=== PATIENT | male | born 1940 | race American Indian/Alaskan Native ===

== ENCOUNTER 2016-12-20 23:13 | Inpatient (IN) | payer MEDICARE ==
[2016-12-21] MEDS ORDERED: ATIVAN ONE (00:37)
--- NOTE | 2016-12-21 00:52 | Emergency Department Report ---
<KACY JARAMILLO T - Last Filed: 12/21/16 00:45> ED Seizure HPI - General Chief Complaint: Seizure Stated Complaint: SEIZURE Time Seen by Provider: 12/21/16 00:45 Source: patient, family (daughter), EMS Mode of arrival: Stretcher Limitations: Physical Limitation - History of Present Illness Initial Comments: daughter states that the patient was in his usual state of health when she noticed he was staring off into space and became unresponsive. He remained alert but would not verbalize. He then told his daughter that he had a headache. She went to get him an aspirin which he then refused, and then appeared to have a seizure. EMS was activated. Patient is noted to have a seizure while here. Complaint: seizure Onset/Timin -: hour(s) Time: 00:52 Description of Episode: tonic-clonic movement Duration of Episode: 10 -: minutes(s) Witnessed:: Yes Trauma: No Seizure History: none Place: home Possible Precipitating Event: none Associated Symptoms: denies other symptoms Treatments Prior to Arrival: none - Related Data Previous Rx's Medication Instructions Recorded Last Taken Type Acetaminophen [Acetaminophen TAB] 650 mg PO Q6H PRN #30 tablet 08/22/14 Unknown Rx Fludrocortisone [Florinef] 0.05 mg PO QDAY #30 tablet 08/22/14 Unknown Rx Allergies Allergy/AdvReac Type Severity Reaction Status Date / Time No Known Allergies Allergy Verified 06/26/14 23:54 ED Review of Systems ROS: Stated complaint: SEIZURE Other details as noted in HPI Comment: Unobtainable due to pts medical conditions ED Past Medical Hx - Past Medical History Previous Medical History?: Yes Hx Congestive Heart Failure: No Hx Diabetes: No Hx Deep Vein Thrombosis: No Hx Asthma: No Hx COPD: No Hx Dementia: Yes Hx HIV: No Additional medical history: Dementia. Failure to thrive - Surgical History Past Surgical History?: Yes Hx Pacemaker: No Hx Internal Defibrillator: No Additional Surgical History: Tonsillectomy, prostate seed implants - Social History Smoking Status: Unknown if ever smoked Substance Use Type: None - Medications Home Medications: Home Medications Medication Instructions Recorded Confirmed Last Taken Type Acetaminophen [Acetaminophen TAB] 650 mg PO Q6H PRN #30 tablet 08/22/14 Unknown Rx Fludrocortisone [Florinef] 0.05 mg PO QDAY #30 tablet 08/22/14 Unknown Rx ED Physical Exam - General Limitations: Altered Mental Status, Physical Limitation General appearance: cachectic, other (actively having a seizure) - Head Head exam: Present: atraumatic, normocephalic - Eye Eye exam: Present: PERRL - ENT ENT exam: Present: normal exam - Neck Neck exam: Present: normal inspection - Respiratory Respiratory exam: Present: normal lung sounds bilaterally - Cardiovascular Cardiovascular Exam: Present: regular rate, normal rhythm - GI/Abdominal GI/Abdominal exam: Present: soft, distended - Rectal Rectal exam: Present: deferred - Extremities Exam Extremities exam: Present: other (no edema, some healing wounds on the lower legs, chronic appearling) - Back Exam Back exam: Present: normal inspection - Neurological Exam Neurological exam: Present: altered. Absent: alert, oriented X3 - Psychiatric Psychiatric exam: Present: other (cannot assess due to actively having a seizure ) - Skin Skin exam: Present: warm, dry, intact ED Course Vital Signs 12/20/16 12/20/16 12/20/16 23:23 23:30 23:37 Temperature 97.9 F Pulse Rate 111 H 111 H 110 H Respiratory 13 22 18 Rate Blood Pressure 163/90 163/90 O2 Sat by Pulse 100 97 Oximetry 12/20/16 12/21/16 12/21/16 23:46 00:00 00:16 Temperature Pulse Rate 106 H 112 H 110 H Respiratory 22 26 H 27 H Rate Blood Pressure 163/90 172/99 172/99 O2 Sat by Pulse 99 100 99 Oximetry 12/21/16 12/21/16 12/21/16 00:30 00:46 01:00 Temperature Pulse Rate 138 H 113 H 111 H Respiratory 45 H 19 18 Rate Blood Pressure 172/99 159/85 155/82 O2 Sat by Pulse 96 99 100 Oximetry 12/21/16 12/21/16 12/21/16 01:16 01:39 01:46 Temperature Pulse Rate 118 H 118 H Respiratory 22 27 H Rate Blood Pressure 166/88 150/98 150/98 O2 Sat by Pulse 91 95 Oximetry 12/21/16 12/21/16 12/21/16 02:00 02:15 02:30 Temperature Pulse Rate 116 H 119 H 116 H Respiratory 21 24 28 H Rate Blood Pressure 164/77 155/86 O2 Sat by Pulse 95 95 95 Oximetry 12/21/16 12/21/16 02:45 03:00 Temperature Pulse Rate 114 H 109 H Respiratory 26 H 21 Rate Blood Pressure 155/86 153/94 O2 Sat by Pulse 95 98 Oximetry Critical care attestation.: If time is entered above; I have spent that time in minutes in the direct care of this critically ill patient, excluding procedure time. ED Disposition Clinical Impression: Seizure, Sepsis UTI (urinary tract infection) Qualifiers: Urinary tract infection type: acute cystitis Hematuria presence: with hematuria Qualified Code(s): N30.01 - Acute cystitis with hematuria Disposition: -09 OP ADMIT IP TO THIS HOSP Condition: Stable Referrals: PRIMARY CARE,MD [Primary Care Provider] - 3-5 Days <MEKHI BERGER - Last Filed: 12/21/16 04:59> ED Medical Decision Making - Lab Data Result diagrams: 12/21/16 01:05 12/21/16 01:05 ED Disposition Is pt being admited?: Yes Does the pt Need Aspirin: No Time of Disposition: 04:47 (case reviewed with dr vigil and he will admit the pt )
[2016-12-21 01:26] LABS: Basophils % (Auto) 0.2 % (0.0-1.8); Hematocrit 42.3 % (35.5-45.6); Hemoglobin 13.8 gm/dl (11.8-15.2); Mean Corpuscular HGB Conc 33 % (32-34); Mean Corpuscular Hemoglobin 31 pg (28-32); Mean Corpuscular Volume 94 fl (84-94); Platelet Count 296 K/mm3 (140-440); Red Blood Count 4.51 M/mm3 (3.65-5.03); Red Cell Distribution Width 13.9 % (13.2-15.2); White Blood Count 8.8 K/mm3 (4.5-11.0)
[2016-12-21 01:49] LABS: Alanine Aminotransferase 10 units/L (7-56); Albumin 3.8 g/dL (3.9-5); Albumin/Globulin Ratio 1.2 %; Alkaline Phosphatase 111 units/L (35-129); Anion Gap 20 mmol/L; BUN/Creatinine Ratio 11; Blood Urea Nitrogen 9 mg/dL (9-20); Calcium 8.5 mg/dL (8.4-10.2); Carbon Dioxide 25 mmol/L (22-30); Chloride 99.2 mmol/L (98-107); Glucose 150 mg/dL (75-100); Potassium 4.8 mmol/L (3.6-5.0); Sodium 139 mmol/L (137-145); Total Protein 7.1 g/dL (6.3-8.2)
--- NOTE | 2016-12-21 02:10 | Cat Scan Report ---
FINAL REPORT EXAM: CT HEAD/BRAIN W/O CONTRAST. HISTORY: Seizure. TECHNIQUE: Unenhanced axial CT images of the brain were obtained. No prior studies are available for comparison. FINDINGS: There moderate diffuse generalized volume loss, appropriate for patient's age. Mild patchy areas of low-attenuation are seen in the periventricular and subcortical white matter, nonspecific but most commonly due to chronic small vessel ischemic disease. There is a 2-3 mm probable prior lacunar infarction in the right thalamus. Incidental note is made of bilateral basal ganglia calcifications. The riley-white differentiation is maintained. There is no extra-axial fluid collection, mass, mass effect, midline shift, hydrocephalus, or acute intracranial hemorrhage. The visualized paranasal sinuses and mastoid air cells are clear. There is no skull fracture or other osseous abnormality. The visualized orbits and globes are grossly unremarkable. IMPRESSION: 1. No acute intracranial abnormality. 2. Generalized volume loss and probable chronic small vessel ischemic disease.
[2016-12-21 03:04] LABS: Urine Drugs of Abuse Note Disclamer
[2016-12-21] MEDS ORDERED: ATIVAN IV ONE (03:10)
[2016-12-21 03:14] LABS: Bacteria,Urine 4+ /HPF (Negative); Bilirubin,Urine NEG (Negative); Blood,Urine MOD (Negative); Ketones,Urine TR mg/dL (Negative); Leukocyte Esterase,Urine NEG (Negative); Mucus,Urine FEW /HPF; Nitrite,Urine POS (Negative)
[2016-12-21] MEDS ORDERED: LEVAQUIN 750MG/150ML 750 MG/150 ML BAG IV ONE (04:49)
[2016-12-21] MEDS ORDERED: NACL 0.9% 500 ML 500 ML IV ONE (04:51)
--- NOTE | 2016-12-21 06:03 | History and Physical Report ---
History of Present Illness Date of examination: 12/21/16 Date of admission: 12/21/2016 Chief complaint: chief complaint: Seizures 2 History of present illness: History of Present Illness 76-year-old -[place] male with no significant past medical history except dementia and failure to thrive brought in by family for 2 new onset seizures. The first one-patient had a blank stare into space and became unresponsive for a few sec. There were no tonic-clonic movements. The second episode happened while around 12 midnight. Patient tonic-clonic movements followed by altered sensorium for 30 minutes. Never had seizures before. Patient has been having progressi and also his weight. Very poor by mouth intake. Patient is cachectic. Patient also had a right sacral ulcer which has healed to a large extent. No fever no chills. No shortness of breath. No recent travel. Past Medical History Previous Medical History?: Yes Hx Dementia: Yes Additional medical history: Dementia. Failure to thrive Sacral decub ulcer [place]'s disease. Patient is on fludrocortisone. - Surgical History Past Surgical History?: Yes Additional Surgical History: Tonsillectomy, prostate seed implants - Social History Smoking Status: Unknown if ever smoked Substance Use Type: None - Medications Home Medications: Home Medications Medication Instructions Recorded Confirmed Last Taken Type Acetaminophen [Acetaminophen TAB] 650 mg PO Q6H PRN #30 tablet 08/22/14 Unknown Rx Fludrocortisone [Florinef] 0.05 mg PO QDAY #30 tablet 08/22/14 Unknown Rx Review of Systems Stated complaint: SEIZURE Other details as noted in HPI Comment: Unobtainable due to pts medical conditions Medications and Allergies Allergies Allergy/AdvReac Type Severity Reaction Status Date / Time No Known Allergies Allergy Verified 06/26/14 23:54 Home Medications Medication Instructions Recorded Confirmed Last Taken Type Acetaminophen [Acetaminophen TAB] 650 mg PO Q6H PRN #30 tablet 08/22/14 Unknown Rx Fludrocortisone [Florinef] 0.05 mg PO QDAY #30 tablet 08/22/14 Unknown Rx Active Meds: Active Medications Levetiracetam 1,000 mg/ Sodium (Chloride) 110 mls @ 400 mls/hr IV Q12H SUREKHA Levofloxacin/Dextrose (Levaquin 750mg/150ml) 750 mg in 150 mls @ 100 mls/hr IV ONCE ONE PRN Reason: Protocol Stop: 12/21/16 06:18 Last Admin: 12/21/16 05:08 Dose: 100 mls/hr Exam - Physical Exam Narrative exam: Patient lying comfortably - Constitutional Vitals: Temp Pulse Resp BP Pulse Ox 97.9 F 101 H 20 145/69 98 12/20/16 23:37 12/21/16 05:45 12/21/16 05:45 12/21/16 05:45 12/21/16 05:45 General appearance: Present: no acute distress, well-nourished - EENT Eyes: Present: PERRL ENT: hearing intact, clear oral mucosa - Neck Neck: Present: supple, normal ROM - Respiratory Respiratory effort: normal Respiratory: bilateral: CTA - Cardiovascular Heart rate: 117 Rhythm: regular Heart Sounds: Present: S1 & S2. Absent: rub, click - Extremities Extremities: no ischemia, pulses intact, pulses symmetrical, No edema Peripheral Pulses: within normal limits - Abdominal General gastrointestinal: Present: soft, non-tender, non-distended, normal bowel sounds Male genitourinary: Present: normal - Rectal Rectal Exam: deferred - Integumentary Integumentary: Present: clear, warm, dry - Musculoskeletal Musculoskeletal: strength equal bilaterally, generalized weakness - Psychiatric Psychiatric: appropriate mood/affect, intact judgment & insight, memory intact ( dementia severe), depressed - Neurologic Neurologic: CNII-XII intact, moves all extremities, gait normal - Allied Health Allied health notes reviewed: nursing, case management Results - Labs CBC & Chem 7: 12/21/16 01:05 12/21/16 01:05 Labs: Laboratory Last Values WBC 8.8 K/mm3 (4.5-11.0) 12/21/16 01:05 RBC 4.51 M/mm3 (3.65-5.03) 12/21/16 01:05 Hgb 13.8 gm/dl (11.8-15.2) 12/21/16 01:05 Hct 42.3 % (35.5-45.6) 12/21/16 01:05 MCV 94 fl (84-94) 12/21/16 01:05 MCH 31 pg (28-32) 12/21/16 01:05 MCHC 33 % (32-34) 12/21/16 01:05 RDW 13.9 % (13.2-15.2) 12/21/16 01:05 Plt Count 296 K/mm3 (140-440) 12/21/16 01:05 Lymph % (Auto) 11.6 % (13.4-35.0) L 12/21/16 01:05 [place] % (Auto) 2.6 % (0.0-7.3) 12/21/16 01:05 Eos % (Auto) 0.0 % (0.0-4.3) 12/21/16 01:05 Baso % (Auto) 0.2 % (0.0-1.8) 12/21/16 01:05 Lymph # 1.0 K/mm3 (1.2-5.4) L 12/21/16 01:05 [place] # 0.2 K/mm3 (0.0-0.8) 12/21/16 01:05 Eos # 0.0 K/mm3 (0.0-0.4) 12/21/16 01:05 Baso # 0.0 K/mm3 (0.0-0.1) 12/21/16 01:05 Seg Neutrophils % 85.6 % (40.0-70.0) H 12/21/16 01:05 Seg Neutrophils # 7.5 K/mm3 (1.8-7.7) 12/21/16 01:05 Sodium 139 mmol/L (137-145) 12/21/16 01:05 Potassium 4.8 mmol/L (3.6-5.0) 12/21/16 01:05 Chloride 99.2 mmol/L (98-107) 12/21/16 01:05 Carbon Dioxide 25 mmol/L (22-30) 12/21/16 01:05 Anion Gap 20 mmol/L 12/21/16 01:05 BUN 9 mg/dL (9-20) 12/21/16 01:05 Creatinine 0.8 mg/dL (0.8-1.5) 12/21/16 01:05 Estimated GFR > 60 ml/min 12/21/16 01:05 BUN/Creatinine Ratio 11 % 12/21/16 01:05 Glucose 150 mg/dL (75-100) H 12/21/16 01:05 Calcium 8.5 mg/dL (8.4-10.2) 12/21/16 01:05 Total Bilirubin 0.20 mg/dL (0.1-1.2) 12/21/16 01:05 AST 19 units/L (5-40) 12/21/16 01:05 ALT 10 units/L (7-56) 12/21/16 01:05 Alkaline Phosphatase 111 units/L (35-129) 12/21/16 01:05 Total Protein 7.1 g/dL (6.3-8.2) 12/21/16 01:05 Albumin 3.8 g/dL (3.9-5) L 12/21/16 01:05 Albumin/Globulin Ratio 1.2 % 12/21/16 01:05 Urine Color Yellow (Yellow) 12/21/16 02:57 Urine Turbidity Clear (Clear) 12/21/16 02:57 Urine pH 5.0 (5.0-7.0) 12/21/16 02:57 Ur Specific [place] 1.019 (1.003-1.030) 12/21/16 02:57 Urine Protein 30 mg/dl mg/dL (Negative) 12/21/16 02:57 Urine Glucose (UA) Neg mg/dL (Negative) 12/21/16 02:57 Urine Ketones Tr mg/dL (Negative) 12/21/16 02:57 Urine Blood Mod (Negative) 12/21/16 02:57 Urine Nitrite Pos (Negative) 12/21/16 02:57 Urine Bilirubin Neg (Negative) 12/21/16 02:57 Urine Urobilinogen 4.0 mg/dL (<2.0) 12/21/16 02:57 Ur Leukocyte Esterase Neg (Negative) 12/21/16 02:57 Urine WBC (Auto) 127.0 /HPF (0.0-6.0) H 12/21/16 02:57 Urine RBC (Auto) 31.0 /HPF (0.0-6.0) 12/21/16 02:57 U Epithel Cells (Auto) < 1.0 /HPF (0-13.0) 12/21/16 02:57 Urine Bacteria (Auto) 4+ /HPF (Negative) 12/21/16 02:57 Urine Mucus Few /HPF 12/21/16 02:57 Urine Opiates Screen Presumptive negative 12/21/16 02:57 Urine Methadone Screen Presumptive negative 12/21/16 02:57 Ur Barbiturates Screen Presumptive negative 12/21/16 02:57 Ur Phencyclidine Scrn Presumptive negative 12/21/16 02:57 Ur Amphetamines Screen Presumptive negative 12/21/16 02:57 U Benzodiazepines Scrn Presumptive negative 12/21/16 02:57 Urine Cocaine Screen Presumptive negative 12/21/16 02:57 U Marijuana (THC) Screen Presumptive negative 12/21/16 02:57 Drugs of Abuse Note Disclamer 12/21/16 02:57 Plasma/Serum Alcohol < 0.01 gm% (0-0.07) 12/21/16 01:05 Short CBC 12/21/16 Range/Units 01:05 WBC 8.8 (4.5-11.0) K/mm3 Hgb 13.8 (11.8-15.2) gm/dl Hct 42.3 (35.5-45.6) % Plt Count 296 (140-440) K/mm3 BMP 12/21/16 01:05 Sodium 139 Potassium 4.8 Chloride 99.2 Carbon Dioxide 25 BUN 9 Creatinine 0.8 Glucose 150 H Calcium 8.5 Liver Function 12/21/16 Range/Units 01:05 Total Bilirubin 0.20 (0.1-1.2) mg/dL AST 19 (5-40) units/L ALT 10 (7-56) units/L Alkaline Phosphatase 111 (35-129) units/L Albumin 3.8 L (3.9-5) g/dL Urine 12/21/16 Range/Units 02:57 Urine Color Yellow (Yellow) Urine pH 5.0 (5.0-7.0) Ur Specific [place] 1.019 (1.003-1.030) Urine Protein 30 mg/dl (Negative) mg/dL Urine Glucose (UA) Neg (Negative) mg/dL - Imaging and Cardiology EKG: report reviewed (heart rate 117. Left atrial enlargement. Minimal ST depression. EKG reviewed by me.) CT Scan - head: report reviewed (no acute findings) Assessment and Plan Advance Directives: Yes (full code) VTE prophylaxis?: Chemical Plan of care discussed with patient/family: Yes - Patient Problems (1) Seizure disorder Current Visit: Yes Status: Acute Plan to address problem: New onset seizures.No brain tumor.Tonic-clonic seizures witnessed in the emergency room. Patient initiated on IV Keppra with bridge to by mouth Keppra (2) Severe malnutrition Current Visit: Yes Status: Acute Plan to address problem: dietary consult requested (3) Addisons disease Current Visit: Yes Status: Chronic Plan to address problem: Because the patient is taking fludrocortisone I'm assuming that patient has [place]'s disease.continue fludrocortisone. Check cortisol level in a.m. (4) Sacral decubitus ulcer, stage II Current Visit: Yes Status: Chronic Plan to address problem: wound care consult requested (5) Debility Current Visit: Yes Status: Chronic Plan to address problem: physical therapy requested (6) DVT prophylaxis Current Visit: Yes Status: Acute Plan to address problem: Lovenox 40 mg subcutaneous daily
[2016-12-21] MEDS ORDERED: ZOFRAN IV PRN (06:04)
[2016-12-21] MEDS ORDERED: DULCOLAX PR PRN (06:04)
[2016-12-21] MEDS ORDERED: MILK OF MAGNESIA PO PRN (06:04)
[2016-12-21] MEDS ORDERED: DILAUDID IV PRN (06:06)
[2016-12-21] MEDS: KEPPRA 1,000 MG in NACL 0.9% 100 ML IV SCH ×2 (06:06→17:28)
[2016-12-21] MEDS ORDERED: D5NS 1,000 ML IV SCH (07:00)
[2016-12-21] MEDS ORDERED: LOVENOX SUB-Q SCH (10:00)
--- NOTE | 2016-12-21 12:03 | Consultation ---
History of Present Illness Consult date: 12/21/16 Chief complaint: patient seen for new onaset of seizures I studiied his CT of the head and it shows generalized atrophy and small vesseel disease no acute stroke or tumor the metabolic profile does not indicate there is metabolic reason for stroke either agree with regian but post 24 hours we should lower amount to 75o mg daily based on age/ sizewe of the patient there is co-morbid factor of dementia Medications and Allergies Allergies Allergy/AdvReac Type Severity Reaction Status Date / Time No Known Allergies Allergy Verified 06/26/14 23:54 Home Medications Medication Instructions Recorded Confirmed Last Taken Type Acetaminophen [Acetaminophen TAB] 650 mg PO Q6H PRN #30 tablet 08/22/14 Unknown Rx Active Meds: Active Medications Acetaminophen (Tylenol) 650 mg PO Q4H PRN PRN Reason: Pain MILD(1-3)/Fever >100.5/VERGARA Aspirin (Aspirin) 300 mg VT QDAY SUREKHA Bisacodyl (Dulcolax) 10 mg VT QDAY PRN PRN Reason: Constipation unrelieved by MOM Enoxaparin Sodium (Lovenox) 40 mg SUB-Q QDAY@1000 SUREKHA Famotidine (Pepcid) 20 mg PO BID SUREKHA Fludrocortisone Acetate (Florinef) 0.05 mg PO QDAY SUREKHA Hydromorphone HCl (Dilaudid) 0.5 mg IV Q3H PRN PRN Reason: Pain , Severe (7-10) Levetiracetam 1,000 mg/ Sodium (Chloride) 110 mls @ 400 mls/hr IV Q12H [facility] Last Admin: 12/21/16 06:06 Dose: 400 mls/hr Dextrose/Sodium Chloride (D5ns) 1,000 mls @ 100 mls/hr IV DIRECT SUREKHA Stop: 12/22/16 11:00 Magnesium Hydroxide (Milk Of Magnesia) 30 ml PO Q4H PRN PRN Reason: Constipation Ondansetron HCl (Zofran) 4 mg IV Q8H PRN PRN Reason: N/V unrelieved by Reglan Oxycodone/Acetaminophen (Percocet 5/325) 1 tab PO Q6H PRN PRN Reason: Pain, Moderate (4-6) Physical Examination - Vital Signs Vital Signs: Vital Signs Pulse Resp 111 H 13 12/20/16 23:23 12/20/16 23:23 Results - Laboratory Findings CBC and BMP: 12/21/16 01:05 12/21/16 01:05
[2016-12-21] MEDS: FLORINEF PO SCH (14:33)
[2016-12-21] MEDS: LOVENOX SUB-Q SCH (14:34)
[2016-12-21] MEDS: PEPCID PO SCH ×2 (14:35→22:35)
[2016-12-22] MEDS: KEPPRA 1,000 MG in NACL 0.9% 100 ML IV SCH ×2 (05:45→19:34)
--- NOTE | 2016-12-22 07:10 | Consultation ---
HISTORY OF PRESENT ILLNESS: This is a 76-year-old white male who is admitted to [facility] after he began to become unresponsive and complained of a headache and then developed a generalized seizure. He was presented to the hospital with a history of dementia and failure to thrive. He has had a prior medical history of dementia, surgical history of prostatic cancer and tonsillectomy. His medicines on admission are Florinef 0.5 mg daily, acetaminophen 650 mg 1 every 6 hours p.r.n. pain. He has no known allergies. Social history not obtainable from the patient, but there is no history of alcohol abuse. On admission, the patient did not demonstrate any further seizure activity. His blood sugar was stated to be 296 and the patient had a CT scan of the head done in the ED and this revealed evidence of generalized atrophy and small blood vessel ischemic changes. Laboratory reveals his white count to be 8800. Hematocrit is 42.3, glucose 150. Urinalysis is unremarkable except for slightly elevated white cells of 127. Drug screen was negative. The patient's creatinine was 0.8. On my examination, the patient's vital signs his blood pressure is 136/78, respirations are 18, pulse rate is 105, mean blood pressure is 97, the paO2 on room air was 100%. The patient's motor tone is symmetrical. His neck is supple. His ocular movements are full. He does not speak at all to me and he is very withdrawn, but does have symmetrical tone. No active seizure activity is noted to be present and he is quite relaxed and does not demonstrate any agitation, delirium. There is no aggressive behavior, he is not in restraints at present time, there is no evidence of any injury. RECOMMENDATIONS: I would start this patient on anticonvulsant therapy and I have noticed that he is taking levetiracetam 1000 mg b.i.d., which can be reduced to 500 at bedtime based on his age after loading him adequately for 24 hours. I would recommend getting an EEG. I feel that MRI scan is probably not going to be necessary at this point. I would advise reviewing his history of whether he is on Alzheimer's medication and if not it may be considered, although this may be a light message of this process of this disorder. 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 JOB# [id number] RADHA/RADHA
[2016-12-22 08:01] LABS: Basophils % (Auto) 0.5 % (0.0-1.8); Hematocrit 43.1 % (35.5-45.6); Hemoglobin 14.7 gm/dl (11.8-15.2); Mean Corpuscular HGB Conc 34 % (32-34); Mean Corpuscular Hemoglobin 32 pg (28-32); Mean Corpuscular Volume 92 fl (84-94); Platelet Count 250 K/mm3 (140-440); Red Blood Count 4.67 M/mm3 (3.65-5.03); Red Cell Distribution Width 13.3 % (13.2-15.2); White Blood Count 6.9 K/mm3 (4.5-11.0)
[2016-12-22 08:23] LABS: Alanine Aminotransferase 11 units/L (7-56); Albumin 3.1 g/dL (3.9-5); Albumin/Globulin Ratio 0.8 %; Alkaline Phosphatase 106 units/L (35-129); Anion Gap 16 mmol/L; BUN/Creatinine Ratio 8; Blood Urea Nitrogen 6 mg/dL (9-20); Calcium 8.5 mg/dL (8.4-10.2); Carbon Dioxide 27 mmol/L (22-30); Chloride 94.7 mmol/L (98-107); Glucose 94 mg/dL (75-100); Potassium 4.7 mmol/L (3.6-5.0); Sodium 133 mmol/L (137-145); Total Protein 7.1 g/dL (6.3-8.2)
[2016-12-22] MEDS: FLORINEF PO SCH (11:34)
[2016-12-22] MEDS: PERCOCET 5/325 PO PRN ×2 (11:34→18:36)
[2016-12-22] MEDS: PEPCID PO SCH ×2 (11:34→22:29)
[2016-12-22] MEDS: LOVENOX SUB-Q SCH (11:35)
[2016-12-22] MEDS: ASPIRIN PR SCH (11:35)
[2016-12-22] MEDS: TYLENOL PO PRN (13:36)
--- NOTE | 2016-12-22 15:36 | Progress Note ---
Assessment and Plan - Patient Problems (1) Encephalopathy acute Current Visit: Yes Status: Acute Plan to address problem: Etio unclear. MR brain ordered Multifactorial seizures UTI and Malnutrition and Vascular dementia. Discussed with daughter about SNF placement (2) UTI (urinary tract infection) Current Visit: Yes Status: Acute Qualifiers: Urinary tract infection type: acute cystitis Hematuria presence: with hematuria Indwelling urinary catheter type: I Encounter type: E Qualified Code(s): N30.01 - Acute cystitis with hematuria Plan to address problem: Patient initiated on Rocephin (3) Seizure disorder Current Visit: Yes Status: Acute Plan to address problem: New onset seizures.No brain tumor.Tonic-clonic seizures witnessed in the emergency room. Patient initiated on IV Keppra with bridge to by mouth Keppra (4) Severe malnutrition Current Visit: Yes Status: Acute Plan to address problem: dietary consult requested (5) Addisons disease Current Visit: Yes Status: Chronic Plan to address problem: Because the patient is taking fludrocortisone I'm assuming that patient has Rahat's disease.continue fludrocortisone. Cortisol level pending (6) Sacral decubitus ulcer, stage II Current Visit: Yes Status: Chronic Plan to address problem: wound care consult requested (7) Debility Current Visit: Yes Status: Chronic Plan to address problem: physical therapy requested (8) DVT prophylaxis Current Visit: Yes Status: Acute Plan to address problem: Lovenox 40 mg subcutaneous daily Subjective Date of service: 12/22/16 Principal diagnosis: New onset seizures Interval history: Patient lethargic Objective - Exam Narrative Exam: Patient lying comfortably - Constitutional Vitals: Vital Signs - 12hr 12/22/16 12/22/16 12/22/16 05:46 07:24 13:29 Temperature 100.0 F H 99.4 F 100.1 F H Pulse Rate 113 H 105 H Respiratory 20 18 20 Rate Blood Pressure 137/86 128/81 133/67 O2 Sat by Pulse 96 98 Oximetry 12/22/16 13:58 Temperature Pulse Rate 69 Respiratory Rate Blood Pressure O2 Sat by Pulse 97 Oximetry General appearance: Present: no acute distress, well-nourished - EENT Eyes: PERRL, EOM intact ENT: hearing intact, clear oral mucosa Ears: bilateral: normal - Neck Neck: supple, normal ROM - Respiratory Respiratory effort: normal Respiratory: bilateral: CTA - Breasts Breasts: normal - Cardiovascular Heart rate: 80 Rhythm: regular Heart Sounds: Present: S1 & S2. Absent: gallop, rub Extremities: pulses intact, No edema, normal color, Full ROM - Gastrointestinal General gastrointestinal: Present: soft, non-tender, non-distended, normal bowel sounds - Genitourinary Male genitourinary: normal - Integumentary Integumentary: clear, warm, dry - Musculoskeletal Musculoskeletal: 1, strength equal bilaterally - Neurologic Neurologic: moves all extremities - Psychiatric Psychiatric: depressed, other (Lethargic poorly responsive.) - Labs CBC & Chem 7: 12/22/16 07:37 12/22/16 07:37 Labs: Abnormal lab results 12/22/16 12/22/16 Range/Units 07:37 07:37 [place] % (Auto) 7.8 H (0.0-7.3) % Sodium 133 L (137-145) mmol/L Chloride 94.7 L (98-107) mmol/L BUN 6 L (9-20) mg/dL Albumin 3.1 L (3.9-5) g/dL
[2016-12-22] MEDS: PROVENTIL IH SCH ×2 (17:00→21:22)
[2016-12-22] MEDS: ROCEPHIN/NS 1 GM/50 ML 1 GM/50 ML BAG IV SCH (18:39)
[2016-12-23] MEDS: PROVENTIL IH SCH (03:04)
[2016-12-23] MEDS ORDERED: PROVENTIL IH PRN ×2 (03:16→03:37)
--- NOTE | 2016-12-23 09:01 | XRay Report ---
Chest 2 views. History: Congestive, coarse lung sounds. Findings: The heart and pulmonary vessels are normal. The lungs are free of acute infiltrates. There is no pleural fluid. Impression: No acute findings.
[2016-12-23] MEDS: KEPPRA PO SCH ×2 (09:13→21:30)
[2016-12-23] MEDS: PEPCID PO SCH ×2 (09:13→21:30)
[2016-12-23] MEDS: FLORINEF PO SCH (09:14)
[2016-12-23] MEDS: ASPIRIN PR SCH (09:14)
[2016-12-23] MEDS: LOVENOX SUB-Q SCH (09:15)
[2016-12-23] MEDS: ROCEPHIN/NS 1 GM/50 ML 1 GM/50 ML BAG IV SCH (10:55)
[2016-12-23] MEDS ORDERED: APRESOLINE IV ONE (15:40)
[2016-12-23] MEDS: TYLENOL PO PRN (15:51)
--- NOTE | 2016-12-23 19:52 | Progress Note ---
Assessment and Plan - Patient Problems (1) Encephalopathy acute Current Visit: Yes Status: Acute Plan to address problem: Etio unclear. MR brain ordered Multifactorial seizures UTI and Malnutrition and Vascular dementia. Discussed with daughter about SNF placement (2) UTI (urinary tract infection) Current Visit: Yes Status: Acute Qualifiers: Urinary tract infection type: acute cystitis Hematuria presence: with hematuria Indwelling urinary catheter type: I Encounter type: E Qualified Code(s): N30.01 - Acute cystitis with hematuria Plan to address problem: Patient initiated on Rocephin (3) Seizure disorder Current Visit: Yes Status: Acute Plan to address problem: New onset seizures.No brain tumor.Tonic-clonic seizures witnessed in the emergency room. Patient initiated on IV Keppra with bridge to by mouth Keppra (4) Severe malnutrition Current Visit: Yes Status: Acute Plan to address problem: dietary consult requested (5) Addisons disease Current Visit: Yes Status: Chronic Plan to address problem: Because the patient is taking fludrocortisone I'm assuming that patient has [place]'s disease.continue fludrocortisone. Cortisol level pending (6) Sacral decubitus ulcer, stage II Current Visit: Yes Status: Chronic Plan to address problem: wound care consult requested (7) Debility Current Visit: Yes Status: Chronic Plan to address problem: physical therapy requested (8) DVT prophylaxis Current Visit: Yes Status: Acute Plan to address problem: Lovenox 40 mg subcutaneous daily Subjective Date of service: 12/23/16 Principal diagnosis: 12/1316 Interval history: Patient lethargic Objective - Exam Narrative Exam: Patient lying comfortably - Constitutional Vitals: Vital Signs - 12hr 12/23/16 12/23/16 12/23/16 08:01 10:00 15:30 Temperature 97.3 F L 100.7 F H Pulse Rate 103 H Pulse Rate [ 103 H From Monitor] Respiratory 18 20 16 Rate Respiratory 18 Rate [ Generalized] Blood Pressure 146/88 161/97 O2 Sat by Pulse 98 96 Oximetry 12/23/16 12/23/16 12/23/16 15:40 16:12 16:16 Temperature 99.5 F Pulse Rate 122 H 131 H 132 H Pulse Rate [ From Monitor] Respiratory 22 Rate Respiratory Rate [ Generalized] Blood Pressure 161/97 157/85 O2 Sat by Pulse 100 98 Oximetry 12/23/16 12/23/16 12/23/16 16:50 17:04 19:07 Temperature 99.5 F 99.4 F Pulse Rate 134 H 132 H Pulse Rate [ From Monitor] Respiratory 22 20 Rate Respiratory Rate [ Generalized] Blood Pressure 143/76 137/79 146/78 O2 Sat by Pulse 100 99 Oximetry General appearance: Present: no acute distress, well-nourished - EENT Eyes: PERRL, EOM intact ENT: hearing intact, clear oral mucosa Ears: bilateral: normal - Neck Neck: supple, normal ROM - Respiratory Respiratory effort: normal Respiratory: bilateral: CTA - Breasts Breasts: normal - Cardiovascular Rhythm: regular Heart Sounds: Present: S1 & S2. Absent: gallop, rub Extremities: pulses intact, No edema, normal color, Full ROM - Gastrointestinal General gastrointestinal: Present: soft, non-tender, non-distended, normal bowel sounds - Genitourinary Male genitourinary: normal - Integumentary Integumentary: clear, warm, dry - Musculoskeletal Musculoskeletal: 1, strength equal bilaterally - Neurologic Neurologic: moves all extremities - Psychiatric Psychiatric: memory intact, appropriate mood/affect, intact judgment & insight - Labs CBC & Chem 7: 12/22/16 07:37 12/22/16 07:37
[2016-12-24] MEDS ORDERED: NACL 0.9% 1000 ML 1,000 ML IV SCH (07:00)
[2016-12-24] MEDS ORDERED: KEPPRA PO SCH (07:00)
[2016-12-24 07:55] LABS: Anion Gap 21 mmol/L; BUN/Creatinine Ratio 19; Blood Urea Nitrogen 13 mg/dL (9-20); Calcium 8.2 mg/dL (8.4-10.2); Carbon Dioxide 25 mmol/L (22-30); Chloride 93.6 mmol/L (98-107); Glucose 100 mg/dL (75-100); Potassium 4.2 mmol/L (3.6-5.0); Sodium 135 mmol/L (137-145)
[2016-12-24 08:01] LABS: Basophils % (Auto) 0.2 % (0.0-1.8); Hematocrit 41.6 % (35.5-45.6); Hemoglobin 13.8 gm/dl (11.8-15.2); Mean Corpuscular HGB Conc 33 % (32-34); Mean Corpuscular Hemoglobin 30 pg (28-32); Mean Corpuscular Volume 92 fl (84-94); Platelet Count 277 K/mm3 (140-440); Red Blood Count 4.55 M/mm3 (3.65-5.03); Red Cell Distribution Width 13.3 % (13.2-15.2)
[2016-12-24] MEDS: ROCEPHIN/NS 1 GM/50 ML 1 GM/50 ML BAG IV SCH (09:35)
[2016-12-24] MEDS: LOVENOX SUB-Q SCH (09:35)
[2016-12-24] MEDS: ASPIRIN PR SCH (09:36)
[2016-12-24] MEDS: KEPPRA PO SCH ×2 (09:36→21:35)
[2016-12-24] MEDS: PEPCID PO SCH ×2 (09:36→21:35)
[2016-12-24] MEDS: FLORINEF PO SCH (09:36)
--- NOTE | 2016-12-24 14:22 | Progress Note ---
Assessment and Plan Assessment and plan: 76-year-old -[place] male with no significant past medical history except dementia and failure to thrive brought in by family for 2 new onset seizures. The first one-patient had a blank stare into space and became unresponsive for a few sec. There were no tonic-clonic movements. The second episode happened while around 12 midnight. Patient tonic-clonic movements followed by altered sensorium for 30 minutes. Never had seizures before. Patient has been having progressive and also his weight. Very poor by mouth intake. Patient is cachectic. Patient also had a right sacral ulcer which has healed to a large extent. No fever no chills. No shortness of breath. No recent travel. Acute toxic encephalopathy * Likely secondary to seizure and postictal states. * Continue treatment of underlying disorder patient also possibly has best blood pressure. * Await MRI results. Neurology input noted. * I'll place a call to the daughter flows of [phone] patient's clinical progression. * Aspiration Precautions. Seizure disorder * Witnessed outpatient also in the ER. Continue antiepileptic drugs at this time. Neurology input is noted with an MRI read. Moderate to Severe protein calorie malnutrition. BMI 19.5 * Inorganic Chemist consult * The patient continues both of sensorium and benefit from tube placement for nutritional needs. Dementia * Alzheimer's VS vascular dementia. Await discussion with the daughter to see if patient is on any previous medications. ?Addisons disease * Because the patient is taking fludrocortisone I'm assuming that patient has [place]'s disease.continue fludrocortisone. Cortisol level pending * Again we'll clarify with the daughter Sacral decubitus ulcer, stage II * Wound care consult requested Complete Immobility Due to Frailty * physical therapy requested DVT prophylaxis * Lovenox 40 mg subcutaneous daily No family present at this time. Discussed with Nursing staff History Interval history: Patient seen and examined remains very withdrawn, not responsive much, per nursing staff, family states patients is previously more alert. Hospitalist Physical - Physical exam Narrative exam: VITAL SIGNS: Reviewed. GENERAL: The patient appeared withdrawn otherwise in no acute distress. Vital signs as documented. HEAD: No signs of head trauma. Marked temporal wasting. EYES: Pupils are equal. Extraocular motions intact. EARS: Hearing grossly intact. MOUTH: Oropharynx is normal. NECK: No adenopathy, no JVD. CHEST: Chest with clear breath sounds bilaterally. No wheezes, rales, or rhonchi. CARDIAC: Regular rate and rhythm. S1 and S2, without murmurs, gallops, or rubs. VASCULAR: No Edema. Peripheral pulses normal and equal in all extremities. ABDOMEN: Soft, without detectable tenderness. No sign of distention. No rebound or guarding, and no masses palpated. Bowel Sounds normal. MUSCULOSKELETAL: Extremities without clubbing, cyanosis or edema. NEUROLOGIC EXAM: Awake but could not assess orientation as patient has not followed commands. PSYCHIATRIC: Mood normal. SKIN: Pressure ulcers sacral area. Present on admission by age-appropriate with some blemishes - Constitutional Vitals: Temp Pulse Resp BP Pulse Ox 98.9 F 120 H 20 121/76 96 12/24/16 08:04 12/24/16 08:04 12/24/16 08:04 12/24/16 08:04 12/24/16 08:28 General appearance: Present: no acute distress, well-nourished Results - Labs CBC & Chem 7: 12/24/16 07:17 12/24/16 07:17 Labs: Laboratory Last Values WBC 7.0 K/mm3 (4.5-11.0) 12/24/16 07: RBC 4.55 M/mm3 (3.65-5.03) 12/24/16 07:17 Hgb 13.8 gm/dl (11.8-15.2) 12/24/16 07:17 Hct 41.6 % (35.5-45.6) 12/24/16 07:17 MCV 92 fl (84-94) 12/24/16 07: MCH 30 pg (28-32) 12/24/16 07: MCHC 33 % (32-34) 12/24/16 07:17 RDW 13.3 % (13.2-15.2) 12/24/16 07:17 Plt Count 277 K/mm3 (140-440) 12/24/16 07: Lymph % (Auto) 8.3 % (13.4-35.0) L 12/24/16 07:17 [place] % (Auto) 6.3 % (0.0-7.3) 12/24/16 07: Eos % (Auto) 0.0 % (0.0-4.3) 12/24/16 07:17 Baso % (Auto) 0.2 % (0.0-1.8) 12/24/16 07:17 Lymph # 0.6 K/mm3 (1.2-5.4) L 12/24/16 07:17 Burke # 0.4 K/mm3 (0.0-0.8) 12/24/16 07:17 Eos # 0.0 K/mm3 (0.0-0.4) 12/24/16 07:17 Baso # 0.0 K/mm3 (0.0-0.1) 12/24/16 07:17 Seg Neutrophils % 85.2 % (40.0-70.0) H 12/24/16 07:17 Seg Neutrophils # 6.0 K/mm3 (1.8-7.7) 12/24/16 07:17 Sodium 135 mmol/L (137-145) L 12/24/16 07:17 Potassium 4.2 mmol/L (3.6-5.0) 12/24/16 07:17 Chloride 93.6 mmol/L (98-107) L 12/24/16 07:17 Carbon Dioxide 25 mmol/L (22-30) 12/24/16 07:17 Anion Gap 21 mmol/L 12/24/16 07:17 BUN 13 mg/dL (9-20) 12/24/16 07:17 Creatinine 0.7 mg/dL (0.8-1.5) L 12/24/16 07:17 Estimated GFR > 60 ml/min 12/24/16 07:17 BUN/Creatinine Ratio 19 % 12/24/16 07:17 Glucose 100 mg/dL (75-100) 12/24/16 07:17 POC Glucose 95 (70-105) 12/24/16 09:35 Hemoglobin A1c 5.7 % (4-6) 12/21/16 06:18 Calcium 8.2 mg/dL (8.4-10.2) L 12/24/16 07:17 Total Bilirubin 0.70 mg/dL (0.1-1.2) 12/22/16 07:37 AST 31 units/L (5-40) 12/22/16 07:37 ALT 11 units/L (7-56) 12/22/16 07:37 Alkaline Phosphatase 106 units/L (35-129) 12/22/16 07:37 Total Protein 7.1 g/dL (6.3-8.2) 12/22/16 07:37 Albumin 3.1 g/dL (3.9-5) L 12/22/16 07:37 Albumin/Globulin Ratio 0.8 % 12/22/16 07:37 Urine Color Yellow (Yellow) 12/21/16 02:57 Urine Turbidity Clear (Clear) 12/21/16 02:57 Urine pH 5.0 (5.0-7.0) 12/21/16 02:57 Ur Specific [place] 1.019 (1.003-1.030) 12/21/16 02:57 Urine Protein 30 mg/dl mg/dL (Negative) 12/21/16 02:57 Urine Glucose (UA) Neg mg/dL (Negative) 12/21/16 02:57 Urine Ketones Tr mg/dL (Negative) 12/21/16 02:57 Urine Blood Mod (Negative) 12/21/16 02:57 Urine Nitrite Pos (Negative) 12/21/16 02:57 Urine Bilirubin Neg (Negative) 12/21/16 02:57 Urine Urobilinogen 4.0 mg/dL (<2.0) 12/21/16 02:57 Ur Leukocyte Esterase Neg (Negative) 12/21/16 02:57 Urine WBC (Auto) 127.0 /HPF (0.0-6.0) H 12/21/16 02:57 Urine RBC (Auto) 31.0 /HPF (0.0-6.0) 12/21/16 02:57 U Epithel Cells (Auto) < 1.0 /HPF (0-13.0) 12/21/16 02:57 Urine Bacteria (Auto) 4+ /HPF (Negative) 12/21/16 02:57 Urine Mucus Few /HPF 12/21/16 02:57 Urine Opiates Screen Presumptive negative 12/21/16 02:57 Urine Methadone Screen Presumptive negative 12/21/16 02:57 Ur Barbiturates Screen Presumptive negative 12/21/16 02:57 Ur Phencyclidine Scrn Presumptive negative 12/21/16 02:57 Ur Amphetamines Screen Presumptive negative 12/21/16 02:57 U Benzodiazepines Scrn Presumptive negative 12/21/16 02:57 Urine Cocaine Screen Presumptive negative 12/21/16 02:57 U Marijuana (THC) Screen Presumptive negative 12/21/16 02:57 Drugs of Abuse Note Disclamer 12/21/16 02:57 Plasma/Serum Alcohol < 0.01 gm% (0-0.07) 12/21/16 01:05 - Imaging and Cardiology MRI - head: pending (on my gross with no evidence of CVA. We'll await official read)
[2016-12-24] MEDS: D5NS 1,000 ML IV SCH (18:55)
--- NOTE | 2016-12-24 20:23 | Magnetic Resonance Report ---
FINAL REPORT PROCEDURE: MR BRAIN WO CON TECHNIQUE: Magnetic resonance imaging of the brain was performed without contrast material. HISTORY: Encephalopathy COMPARISON: Prior CT scan of the brain 12/21/2016 FINDINGS: There is no evidence of intracranial hemorrhage. The sulcal pattern, the fissures and the ventricles are diffusely prominent consistent with moderate to severe atrophy. There is diffuse patchy increased T2 signal in the periventricular white matter without restricted diffusion consistent with fairly extensive gliosis probably on the basis of microvascular disease or white matter changes of aging. In the right periventricular white matter superiorly, right parietal lobe there is a 9.2 millimeter round area of marked restricted diffusion showing mild decreased signal on the ADC mapping consistent with a acute or subacute lacunar infarct. There is no mass effect. No abnormal extra-axial fluid collections or masses are seen. The corpus callosum is thin consistent with atrophy. There are areas of decreased T1 signal extending through the corpus callosum perpendicular to the corpus callosum. This may represent old encephalomalacia. This can also be seen with a previous history demyelinating disease such as multiple sclerosis. The region of the pituitary fossa and foramen magnum are unremarkable. Nonspecific mineralization of the basal ganglia are visualized bilaterally. There is mild increased T2 signal in a few of the mastoid air cells bilaterally. Mastoid air cells otherwise are clear. Paranasal sinuses appear clear. IMPRESSION: There is evidence of moderate to severe atrophy and gliosis. Acute/subacute lacunar infarct visualized right periventricular white matter, right parietal lobe superiorly. Atrophy visualized in the corpus callosum is well as small areas of encephalomalacia versus evidence of prior multiple sclerosis. Please see above comments. Mild mastoid air cell disease. A small amount of increased T2 signal is seen inferiorly. The majority of the mastoid air cells are clear.
[2016-12-25] MEDS: ROCEPHIN/NS 1 GM/50 ML 1 GM/50 ML BAG IV SCH (09:10)
[2016-12-25] MEDS: LOVENOX SUB-Q SCH (09:10)
[2016-12-25] MEDS: ASPIRIN PR SCH (09:11)
[2016-12-25] MEDS: FLORINEF PO SCH (09:17)
[2016-12-25] MEDS: PEPCID PO SCH ×2 (09:17→22:35)
[2016-12-25] MEDS: KEPPRA PO SCH (10:03)
[2016-12-25] MEDS: D5NS 1,000 ML IV SCH (11:09)
--- NOTE | 2016-12-25 14:32 | Consultation ---
History of Present Illness Consult date: 12/25/16 History of present illness: the results of the MRI are reviewed and show only severe atrophy and vascular microstrokes old this is expected and certainly can be cause of both seizures and dementia plan give low dose keppra should not be an issue with this stage of AD Medications and Allergies Allergies Allergy/AdvReac Type Severity Reaction Status Date / Time No Known Allergies Allergy Verified 06/26/14 23:54 Home Medications Medication Instructions Recorded Confirmed Last Taken Type Acetaminophen [Acetaminophen TAB] 650 mg PO Q6H PRN #30 tablet 08/22/1410/30/16 13:00 Rx 650mg Ibuprofen [Ibuprofen Ib] 200 mg PO TID PRN 12/22/16 12/22/16 12/17/16 16:00 History 200mg Active Meds: Active Medications Acetaminophen (Tylenol) 650 mg PO Q4H PRN PRN Reason: Pain MILD(1-3)/Fever >100.5/VERGARA Last Admin: 12/23/16 15:51 Dose: 650 mg Albuterol (Proventil) 2.5 mg IH Q4HRT PRN PRN Reason: Shortness Of Breath Aspirin (Aspirin) 300 mg NE QDAY FOR[facility]LY [facility], [facility]1983 Last Admin: 12/25/16 09:11 Dose: 300 mg Bisacodyl (Dulcolax) 10 mg NE QDAY PRN PRN Reason: Constipation unrelieved by MOM Enoxaparin Sodium (Lovenox) 40 mg SUB-Q QDAY@1000 [facility], [facility]1983 Last Admin: 12/25/16 09:10 Dose: 40 mg Famotidine (Pepcid) 20 mg PO BID [facility], [facility]1983 Last Admin: 12/25/16 09:17 Dose: 20 mg Fludrocortisone Acetate (Florinef) 0.05 mg PO QDAY FOR[facility], [facility] Last Admin: 12/25/16 09:17 Dose: 0.05 mg Hydromorphone HCl (Dilaudid) 0.5 mg IV Q3H PRN PRN Reason: Pain , Severe (7-10) Ceftriaxone Sodium (Rocephin/Ns 1 Gm/50 Ml) 1 gm in 50 mls @ 100 mls/hr IV Q24HR [facility], [facility] Last Admin: 12/25/16 09:10 Dose: 100 mls/hr Dextrose/Sodium Chloride (D5ns) 1,000 mls @ 75 mls/hr IV DIRECT [facility] Last Admin: 12/25/16 11:09 Dose: 75 mls/hr Levetiracetam (Keppra) 750 mg PO DAILY SUREKHA Magnesium Hydroxide (Milk Of Magnesia) 30 ml PO Q4H PRN PRN Reason: Constipation Ondansetron HCl (Zofran) 4 mg IV Q8H PRN PRN Reason: N/V unrelieved by Reglan Oxycodone/Acetaminophen (Percocet 5/325) 1 tab PO Q6H PRN PRN Reason: Pain, Moderate (4-6) Last Admin: 12/22/16 18:36 Dose: 1 tab Physical Examination - Vital Signs Vital Signs: Vital Signs Pulse Resp 111 H 13 12/20/16 23:23 12/20/16 23:23 Results - Laboratory Findings CBC and BMP: 12/24/16 07:17 12/24/16 07:17 Abnormal Lab Findings: Abnormal Labs 12/22/16 12/22/16 12/24/16 07:37 07:37 07:17 Lymph % (Auto) 8.[address] [place] % (Auto) 7.8 H Lymph # 0.6 L Seg Neutrophils % 85.2 H Sodium 133 L Chloride 94.7 L BUN 6 L Creatinine POC Glucose Calcium Albumin 3.1 L 12/24/16 12/24/16 07:17 22:42 Lymph % (Auto) [place] % (Auto) Lymph # Seg Neutrophils % Sodium 135 L Chloride 93.6 L BUN Creatinine 0.7 L POC Glucose 112 H Calcium 8.2 L Albumin
[2016-12-25] MEDS: TYLENOL PO PRN (22:34)
--- NOTE | 2016-12-25 23:03 | Progress Note ---
Assessment and Plan Assessment and plan: 76-year-old -[place] male with no significant past medical history except dementia and failure to thrive brought in by family for 2 new onset seizures. The first one-patient had a blank stare into space and became unresponsive for a few sec. There were no tonic-clonic movements. The second episode happened while around 12 midnight. Patient tonic-clonic movements followed by altered sensorium for 30 minutes. Never had seizures before. Patient has been having progressive and also his weight. Very poor by mouth intake. Patient is cachectic. Patient also had a right sacral ulcer which has healed to a large extent. No fever no chills. No shortness of breath. No recent travel. Acute toxic encephalopathy * Likely secondary to seizure and postictal states. * Continue treatment of underlying disorder patient also possibly has best blood pressure. 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 * spoke with daughter who states patient was verbal until the seizure activity. she will like peg tube of patient countinues with aphagia and dysphagea. Speech eval noted. * Aspiration Precautions. * GI consult for possible PEG placement Seizure disorder * Witnessed outpatient also in the ER. Continue antiepileptic drugs at this time. Neurology input is noted with an MRI read. * Keppra started Moderate to Severe protein calorie malnutrition. BMI 19.5 * Aircraft Armorer consult * The patient continues both of sensorium and benefit from tube placement for nutritional needs. Dementia * Alzheimer's VS vascular dementia. Await discussion with the daughter to see if patient is on any previous medications. ?Addisons disease * Because the patient is taking fludrocortisone I'm assuming that patient has [place]'s disease.continue fludrocortisone. Cortisol level pending * Again we'll clarify with the daughter Presumed Aspiration Pneumonitis * check xray. no evidence of sepsis * continue abx Sacral decubitus ulcer, stage II * Wound care consult requested Complete Immobility Due to Frailty * physical therapy requested DVT prophylaxis * Lovenox 40 mg subcutaneous daily Discussed with Nursing staff History Interval history: Patient seen and examined remains very withdrawn, not responsive, per nursing staff, congested cough, no shortness of breath noted. Hospitalist Physical - Physical exam Narrative exam: VITAL SIGNS: Reviewed. GENERAL: The patient appeared withdrawn otherwise in no acute distress. Vital signs as documented. HEAD: No signs of head trauma. Marked temporal wasting. EYES: Pupils are equal. EARS: Hearing grossly intact. MOUTH: Oropharynx is normal. NECK: No adenopathy, no JVD. CHEST: Chest with diminswhed breath sounds crackles bilaterally. No wheezes, rales, or rhonchi. CARDIAC: Regular rate and rhythm. S1 and S2, without murmurs, gallops, or rubs. VASCULAR: No Edema. Peripheral pulses normal and equal in all extremities. ABDOMEN: Soft, without detectable tenderness. No sign of distention. No rebound or guarding, and no masses palpated. Bowel Sounds normal. MUSCULOSKELETAL: Extremities without clubbing, cyanosis or edema. NEUROLOGIC EXAM: Awake but could not assess orientation as patient has not followed commands. PSYCHIATRIC: Mood depressed. SKIN: Pressure ulcers sacral area and heels. Present on admission by age- appropriate with some blemishes - Constitutional Vitals: Temp Pulse Resp BP Pulse Ox 100.7 F H 129 H 18 155/90 97 12/25/16 14:27 12/25/16 14:27 12/25/16 22:34 12/25/16 14:27 12/25/16 14:27 General appearance: Present: no acute distress, well-nourished Results - Labs CBC & Chem 7: 12/24/16 07:17 12/24/16 07:17 Labs: Laboratory Last Values WBC 7.0 K/mm3 (4.5-11.0) 12/24/16 07:17 RBC 4.55 M/mm3 (3.65-5.03) 12/24/16 07:17 Hgb 13.8 gm/dl (11.8-15.2) 12/24/16 07:17 Hct 41.6 % (35.5-45.6) 12/24/16 07:17 MCV 92 fl (84-94) 12/24/16 07:17 MCH 30 pg (28-32) 12/24/16 07: MCHC 33 % (32-34) 12/24/16 07:17 RDW 13.3 % (13.2-15.2) 12/24/16 07:17 Plt Count 277 K/mm3 (140-440) 12/24/16 07:17 Lymph % (Auto) 8.3 % (13.4-35.0) L 12/24/16 07:17 [place] % (Auto) 6.3 % (0.0-7.3) 12/24/16 07:17 Eos % (Auto) 0.0 % (0.0-4.3) 12/24/16 07: Baso % (Auto) 0.2 % (0.0-1.8) 12/24/16 07:17 Lymph # 0.6 K/mm3 (1.2-5.4) L 12/24/16 07:17 [place] # 0.4 K/mm3 (0.0-0.8) 12/24/16 07:17 Eos # 0.0 K/mm3 (0.0-0.4) 12/24/16 07: Baso # 0.0 K/mm3 (0.0-0.1) 12/24/16 07:17 Seg Neutrophils % 85.2 % (40.0-70.0) H 12/24/16 07:17 Seg Neutrophils # 6.0 K/mm3 (1.8-7.7) 12/24/16 07:17 Sodium 135 mmol/L (137-145) L 12/24/16 07:17 Potassium 4.2 mmol/L (3.6-5.0) 12/24/16 07:17 Chloride 93.6 mmol/L (98-107) L 12/24/16 07:17 Carbon Dioxide 25 mmol/L (22-30) 12/24/16 07:17 Anion Gap 21 mmol/L 12/24/16 07:17 BUN 13 mg/dL (9-20) 12/24/16 07:17 Creatinine 0.7 mg/dL (0.8-1.5) L 12/24/16 07:17 Estimated GFR > 60 ml/min 12/24/16 07:17 BUN/Creatinine Ratio 19 % 12/24/16 07:17 Glucose 100 mg/dL (75-100) 12/24/16 07:17 POC Glucose 112 (70-105) H 12/24/16 22:42 Hemoglobin A1c 5.7 % (4-6) 12/21/16 06:18 Calcium 8.2 mg/dL (8.4-10.2) L 12/24/16 07:17 Magnesium 2.10 mg/dL (1.7-2.3) 12/24/16 16:26 Total Bilirubin 0.70 mg/dL (0.1-1.2) 12/22/16 07:37 AST 31 units/L (5-40) 12/22/16 07:37 ALT 11 units/L (7-56) 12/22/16 07:37 Alkaline Phosphatase 106 units/L (35-129) 12/22/16 07:37 Total Protein 7.1 g/dL (6.3-8.2) 12/22/16 07:37 Albumin 3.1 g/dL (3.9-5) L 12/22/16 07:37 Albumin/Globulin Ratio 0.8 % 12/22/16 07:37 Total Cortisol 19.7 mcg/dL () 12/22/16 07:37 Urine Color Yellow (Yellow) 12/21/16 02:57 Urine Turbidity Clear (Clear) 12/21/16 02:57 Urine pH 5.0 (5.0-7.0) 12/21/16 02:57 Ur Specific [place] 1.019 (1.003-1.030) 12/21/16 02:57 Urine Protein 30 mg/dl mg/dL (Negative) 12/21/16 02:57 Urine Glucose (UA) Neg mg/dL (Negative) 12/21/16 02:57 Urine Ketones Tr mg/dL (Negative) 12/21/16 02:57 Urine Blood Mod (Negative) 12/21/16 02:57 Urine Nitrite Pos (Negative) 12/21/16 02:57 Urine Bilirubin Neg (Negative) 12/21/16 02:57 Urine Urobilinogen 4.0 mg/dL (<2.0) 12/21/16 02:57 Ur Leukocyte Esterase Neg (Negative) 12/21/16 02:57 Urine WBC (Auto) 127.0 /HPF (0.0-6.0) H 12/21/16 02:57 Urine RBC (Auto) 31.0 /HPF (0.0-6.0) 12/21/16 02:57 U Epithel Cells (Auto) < 1.0 /HPF (0-13.0) 12/21/16 02:57 Urine Bacteria (Auto) 4+ /HPF (Negative) 12/21/16 02:57 Urine Mucus Few /HPF 12/21/16 02:57 Urine Opiates Screen Presumptive negative 12/21/16 02:57 Urine Methadone Screen Presumptive negative 12/21/16 02:57 Ur Barbiturates Screen Presumptive negative 12/21/16 02:57 Ur Phencyclidine Scrn Presumptive negative 12/21/16 02:57 Ur Amphetamines Screen Presumptive negative 12/21/16 02:57 U Benzodiazepines Scrn Presumptive negative 12/21/16 02:57 Urine Cocaine Screen Presumptive negative 12/21/16 02:57 U Marijuana (THC) Screen Presumptive negative 12/21/16 02:57 Drugs of Abuse Note Disclamer 12/21/16 02:57 Plasma/Serum Alcohol < 0.01 gm% (0-0.07) 12/21/16 01:05 - Imaging and Cardiology Chest x-ray: pending MRI - head: image reviewed (old CVA)
--- NOTE | 2016-12-26 07:34 | Progress Note ---
Assessment and Plan Assessment and plan: 76-year-old -H[place] male with no significant past medical history except dementia and failure to thrive brought in by family for 2 new onset seizures. The first one-patient had a blank stare into space and became unresponsive for a few sec. There were no tonic-clonic movements. The second episode happened while around 12 midnight. Patient tonic-clonic movements followed by altered sensorium for 30 minutes. Never had seizures before. Patient has been having progressive and also his weight. Very poor by mouth intake. Patient is cachectic. Patient also had a right sacral ulcer which has healed to a large extent. No fever no chills. No shortness of breath. No recent travel. Acute toxic encephalopathy * Likely secondary to seizure and postictal states. * Continue treatment of underlying disorder patient also possibly has best blood pressure. 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 * spoke with daughter who states patient was verbal until the seizure activity. she will like peg tube of patient countinues with aphagia and dysphagea. Speech eval noted. * Aspiration Precautions. * GI consult for possible PEG placement Seizure disorder * Witnessed outpatient also in the ER. Continue antiepileptic drugs at this time. Neurology input is noted with an MRI read. * Keppra started but will change to IV since patient not taking any PO * ataivan PRN for breakthrough seziure control Moderate to Severe protein calorie malnutrition. BMI 19.5 * Deli Worker consult * The patient continues both of sensorium and benefit from tube placement for nutritional needs. Dementia * Alzheimer's VS vascular dementia. Await discussion with the daughter to see if patient is on any previous medications. 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 continue fludrocortisone. * Again we'll clarify with the daughter Acute Cystitis * Start on ZOSYN and stop ceftraixone * await urine culture Presumed sepsis- Present on admission. Patient has also been on abx since admission. . Presumed Aspiration Pneumonitis * check xray. no evidence of sepsis * continue abx But change to zosyn. * check lactate level Sacral decubitus ulcer, stage II * Wound care consult requested Complete Immobility Due to Frailty * physical therapy requested DVT prophylaxis * Lovenox 40 mg subcutaneous daily Discussed with Nursing staff an also intensively with the daughter History Interval history: Patient seen and examined remains withdrawn, not responsive, per nursing staff, no shortness of breath noted. concerned about possible seizure like activity today lasted few seconds Hospitalist Physical - Physical exam Narrative exam: VITAL SIGNS: Reviewed. GENERAL: The patient appeared withdrawn otherwise in no acute distress. Vital signs as documented. HEAD: No signs of head trauma. Marked temporal wasting. EYES: Pupils are equal. EARS: Hearing grossly intact. MOUTH: Oropharynx is normal. NECK: No adenopathy, no JVD. CHEST: Chest with diminished breath sounds crackles bilaterally. No wheezes, rales, or rhonchi. CARDIAC: Regular rate and rhythm. S1 and S2, without murmurs, gallops, or rubs. VASCULAR: No Edema. Peripheral pulses normal and equal in all extremities. ABDOMEN: Soft, without detectable tenderness. No sign of distention. No rebound or guarding, and no masses palpated. Bowel Sounds normal. MUSCULOSKELETAL: Extremities without clubbing, cyanosis or edema. NEUROLOGIC EXAM: Awake but could not assess orientation as patient has not followed commands. PSYCHIATRIC: Mood depressed. SKIN: Pressure ulcers sacral area and heels. Present on admission by age- appropriate with some blemishes - Constitutional Vitals: Temp Pulse Resp BP Pulse Ox 98.9 F 106 H 20 140/81 98 12/26/16 07:19 12/26/16 07:19 12/26/16 07:19 12/26/16 07:19 12/26/16 07:19 General appearance: Present: no acute distress, well-nourished Results - Labs CBC & Chem 7: 12/24/16 07:17 12/24/16 07:17 Labs: Laboratory Last Values WBC 7.0 K/mm3 (4.5-11.0) 12/24/16 07:17 RBC 4.55 M/mm3 (3.65-5.03) 12/24/16 07:17 Hgb 13.8 gm/dl (11.8-15.2) 12/24/16 07:17 Hct 41.6 % (35.5-45.6) 12/24/16 07:17 MCV 92 fl (84-94) 12/24/16 07:17 MCH 30 pg (28-32) 12/24/16 07: MCHC 33 % (32-34) 12/24/16 07:17 RDW 13.3 % (13.2-15.2) 12/24/16 07:17 Plt Count 277 K/mm3 (140-440) 12/24/16 07:17 Lymph % (Auto) 8.3 % (13.4-35.0) L 12/24/16 07:17 [place] % (Auto) 6.3 % (0.0-7.3) 12/24/16 07: Eos % (Auto) 0.0 % (0.0-4.3) 12/24/16 07:17 Baso % (Auto) 0.2 % (0.0-1.8) 12/24/16 07: Lymph # 0.6 K/mm3 (1.2-5.4) L 12/24/16 07: [place] # 0.4 K/mm3 (0.0-0.8) 12/24/16 07: Eos # 0.0 K/mm3 (0.0-0.4) 12/24/16 07: Baso # 0.0 K/mm3 (0.0-0.1) 12/24/16 07:17 Seg Neutrophils % 85.2 % (40.0-70.0) H 12/24/16 07:17 Seg Neutrophils # 6.0 K/mm3 (1.8-7.7) 12/24/16 07:17 Sodium 135 mmol/L (137-145) L 12/24/16 07:17 Potassium 4.2 mmol/L (3.6-5.0) 12/24/16 07:17 Chloride 93.6 mmol/L (98-107) L 12/24/16 07:17 Carbon Dioxide 25 mmol/L (22-30) 12/24/16 07:17 Anion Gap 21 mmol/L 12/24/16 07:17 BUN 13 mg/dL (9-20) 12/24/16 07:17 Creatinine 0.7 mg/dL (0.8-1.5) L 12/24/16 07:17 Estimated GFR > 60 ml/min 12/24/16 07:17 BUN/Creatinine Ratio 19 % 12/24/16 07:17 Glucose 100 mg/dL (75-100) 12/24/16 07:17 POC Glucose 112 (70-105) H 12/24/16 22:42 Hemoglobin A1c 5.7 % (4-6) 12/21/16 06:18 Calcium 8.2 mg/dL (8.4-10.2) L 12/24/16 07:17 Magnesium 2.10 mg/dL (1.7-2.3) 12/24/16 16:26 Total Bilirubin 0.70 mg/dL (0.1-1.2) 12/22/16 07:37 AST 31 units/L (5-40) 12/22/16 07:37 ALT 11 units/L (7-56) 12/22/16 07:37 Alkaline Phosphatase 106 units/L (35-129) 12/22/16 07:37 Total Protein 7.1 g/dL (6.3-8.2) 12/22/16 07:37 Albumin 3.1 g/dL (3.9-5) L 12/22/16 07:37 Albumin/Globulin Ratio 0.8 % 12/22/16 07:37 Total Cortisol 19.7 mcg/dL () 12/22/16 07:37 Urine Color Yellow (Yellow) 12/21/16 02:57 Urine Turbidity Clear (Clear) 12/21/16 02:57 Urine pH 5.0 (5.0-7.0) 12/21/16 02:57 Ur Specific [place] 1.019 (1.003-1.030) 12/21/16 02:57 Urine Protein 30 mg/dl mg/dL (Negative) 12/21/16 02:57 Urine Glucose (UA) Neg mg/dL (Negative) 12/21/16 02:57 Urine Ketones Tr mg/dL (Negative) 12/21/16 02:57 Urine Blood Mod (Negative) 12/21/16 02:57 Urine Nitrite Pos (Negative) 12/21/16 02:57 Urine Bilirubin Neg (Negative) 12/21/16 02:57 Urine Urobilinogen 4.0 mg/dL (<2.0) 12/21/16 02:57 Ur Leukocyte Esterase Neg (Negative) 12/21/16 02:57 Urine WBC (Auto) 127.0 /HPF (0.0-6.0) H 12/21/16 02:57 Urine RBC (Auto) 31.0 /HPF (0.0-6.0) 12/21/16 02:57 U Epithel Cells (Auto) < 1.0 /HPF (0-13.0) 12/21/16 02:57 Urine Bacteria (Auto) 4+ /HPF (Negative) 12/21/16 02:57 Urine Mucus Few /HPF 12/21/16 02:57 Urine Opiates Screen Presumptive negative 12/21/16 02:57 Urine Methadone Screen Presumptive negative 12/21/16 02:57 Ur Barbiturates Screen Presumptive negative 12/21/16 02:57 Ur Phencyclidine Scrn Presumptive negative 12/21/16 02:57 Ur Amphetamines Screen Presumptive negative 12/21/16 02:57 U Benzodiazepines Scrn Presumptive negative 12/21/16 02:57 Urine Cocaine Screen Presumptive negative 12/21/16 02:57 U Marijuana (THC) Screen Presumptive negative 12/21/16 02:57 Drugs of Abuse Note Disclamer 12/21/16 02:57 Plasma/Serum Alcohol < 0.01 gm% (0-0.07) 12/21/16 01:05 - Imaging and Cardiology Chest x-ray: image reviewed (bilateral pneumonia)
--- NOTE | 2016-12-26 07:40 | XRay Report ---
Single view chest: History: Aspiration pneumonia. Findings: Normal cardiomediastinal silhouette. Trachea is midline. Faint infiltrates identified in the lower lobes bilaterally being more also the left side. Normal CP angles. Impression: Bilateral lower lobe infiltrates suggestive pneumonitis.
[2016-12-26] MEDS: ZOSYN/NS 4.5GM/100ML 4.5 GM/100 ML VIAL IV SCH ×3 (09:18→22:37)
[2016-12-26] MEDS: LOVENOX SUB-Q SCH (09:19)
[2016-12-26] MEDS: ASPIRIN PR SCH (09:20)
[2016-12-26] MEDS ORDERED: KEPPRA PO SCH (10:00)
[2016-12-26] MEDS: PEPCID PO SCH ×2 (10:00→22:56)
[2016-12-26] MEDS: FLORINEF PO SCH (10:00)
--- NOTE | 2016-12-26 10:35 | Gastroenterology Consultation ---
History of Present Illness - Reason for Consult Consult date: 12/26/16 PEG placement Requesting physician: VITALY SNOWDEN - History of Present Illness Patient is a 76 y/o male with PMH of dementia and failure to thrive who was brought to the ER for new onset seizures. Pt is noted to have poor po intake with a progressive decline in wt. GI has been consulted for PEG tube placement. This am pt was resting in bed. No acute distress. Alert but non-verbal. History obtained from chart review. He is noted to be frail and cachectic. Abd is soft, flat, with +BS. Speech eval on 12/25/16 gave recommendations for a skilled nursing means of nutrition. Past History Past Medical History: other (dementia, failure to thrive, sacral ulcer, Rahat' s disease, seizures) Past Surgical History: tonsillectomy, Other (prostate seed implants) Social history: denies: smoking, alcohol abuse Family history: no significant family history Medications and Allergies Allergies Allergy/AdvReac Type Severity Reaction Status Date / Time No Known Allergies Allergy Verified 06/26/14 23:54 Home Medications Medication Instructions Recorded Confirmed Last Taken Type Acetaminophen [Acetaminophen TAB] 650 mg PO Q6H PRN #30 tablet 08/22/1410/30/16 13:00 Rx 650mg Ibuprofen [Ibuprofen Ib] 200 mg PO TID PRN 12/22/16 12/22/16 12/17/16 16:00 History 200mg Active Meds: Active Medications Acetaminophen (Tylenol) 650 mg PO Q4H PRN PRN Reason: Pain MILD(1-3)/Fever >100.5/VERGARA Last Admin: 12/25/16 22:34 Dose: 650 mg Albuterol (Proventil) 2.5 mg IH Q4HRT PRN PRN Reason: Shortness Of Breath Last Admin: 12/26/16 09:59 Dose: 2.5 mg Aspirin (Aspirin) 300 mg [place] QDAY [facility] Last Admin: 12/26/16 09:20 Dose: 300 mg Bisacodyl (Dulcolax) 10 mg [place] QDAY PRN PRN Reason: Constipation unrelieved by MOM Enoxaparin Sodium (Lovenox) 40 mg SUB-Q QDAY@1000 SUREKHA Last Admin: 12/26/16 09:19 Dose: 40 mg Famotidine (Pepcid) 20 mg PO BID [facility] Last Admin: 12/25/16 22:35 Dose: 20 mg Fludrocortisone Acetate (Florinef) 0.05 mg PO QDAY [facility] Last Admin: 12/25/16 09:17 Dose: 0.05 mg Hydromorphone HCl (Dilaudid) 0.5 mg IV Q3H PRN PRN Reason: Pain , Severe (7-10) Dextrose/Sodium Chloride (D5ns) 1,000 mls @ 75 mls/hr IV DIRECT [facility] Last Admin: 12/25/16 11:09 Dose: 75 mls/hr Piperacillin Sod/Tazobactam Sod (Zosyn/Ns 4.5gm/100ml) 4.5 gm in 100 mls @ 200 mls/hr IV Q8HR [facility] PRN Reason: Protocol Last Admin: 12/26/16 09:18 Dose: 200 mls/hr Levetiracetam (Keppra) 750 mg PO DAILY [facility] Magnesium Hydroxide (Milk Of Magnesia) 30 ml PO Q4H PRN PRN Reason: Constipation Ondansetron HCl (Zofran) 4 mg IV Q8H PRN PRN Reason: N/V unrelieved by Reglan Oxycodone/Acetaminophen (Percocet 5/325) 1 tab PO Q6H PRN PRN Reason: Pain, Moderate (4-6) Last Admin: 12/22/16 18:36 Dose: 1 tab Review of Systems - Review of Systems ROS unobtainable: due to mental status Exam - Constitutional Vital Signs: Temp Pulse Resp BP Pulse Ox 98.9 F 107 H 20 140/81 98 12/26/16 07:19 12/26/16 10:10 12/26/16 10:10 12/26/16 07:19 12/26/16 07:19 General appearance: no acute distress, cachectic, temporal muscle wasting, other (frail) - Respiratory Respiratory: bilateral: diminished (anterior with crackles) - Cardiovascular Rhythm: regular Heart Sounds: Present: S1 & S2 Extremities: No edema - Gastrointestinal General gastrointestinal: Present: soft, non-distended, normal bowel sounds - Neurologic Neurological: other (alert, non-verbal) - Labs CBC & Chem 7: 12/24/16 07:17 12/24/16 07:17 Assessment and Plan 1.PEG tube placement -pt with hx of dementia with poor po intake, failure to thrive, and wt loss -speech eval on 12/25 recommended a skilled nursing means of nutrition -called and spoke with pt's daughter Dorinda Dobson ([phone] or [phone]) regarding a PEG tube placement. I discussed the nature of this procedure, details of technique, benefits, purpose, and risks including perforation, bleeding, infection, and independent risks of anesthesia. She wishes to proceed with PEG placement -Will schedule for EGD with PEG placement tomorrow -Keep NPO -hold lovenox dose -PT/INR, CBC, BMP in am -will follow
[2016-12-26] MEDS ORDERED: ATIVAN IV ONE (16:02)
[2016-12-26] MEDS: D5NS 1,000 ML IV SCH (18:30)
[2016-12-26] MEDS: KEPPRA 750 MG in NACL 0.9% 100 ML IV SCH (23:45)
[2016-12-27 05:10] LABS: Basophils % (Auto) 0.3 % (0.0-1.8); Eosinophils % (Auto) 0.5 % (0.0-4.3); Hemoglobin 11.7 gm/dl (11.8-15.2); Mean Corpuscular HGB Conc 34 % (32-34); Mean Corpuscular Hemoglobin 32 pg (28-32); Mean Corpuscular Volume 92 fl (84-94); Platelet Count 252 K/mm3 (140-440); Red Blood Count 3.69 M/mm3 (3.65-5.03); Red Cell Distribution Width 13.6 % (13.2-15.2); White Blood Count 6.2 K/mm3 (4.5-11.0)
[2016-12-27 05:14] LABS: INR 1.14 (0.87-1.13)
[2016-12-27 05:30] LABS: Anion Gap 18 mmol/L; BUN/Creatinine Ratio 10; Blood Urea Nitrogen 7 mg/dL (9-20); Calcium 7.6 mg/dL (8.4-10.2); Carbon Dioxide 24 mmol/L (22-30); Chloride 107.1 mmol/L (98-107); Glucose 100 mg/dL (75-100); Hematocrit 36.9 % (35.5-45.6); Potassium 3.4 mmol/L (3.6-5.0); Sodium 146 mmol/L (137-145)
[2016-12-27] MEDS: ZOSYN/NS 4.5GM/100ML 4.5 GM/100 ML VIAL IV SCH ×2 (06:23→22:12)
[2016-12-27] MEDS: LOVENOX SUB-Q SCH (10:00)
[2016-12-27] MEDS: PEPCID PO SCH (10:00)
[2016-12-27] MEDS: ASPIRIN PR SCH (10:00)
[2016-12-27] MEDS: FLORINEF PO SCH (10:00)
[2016-12-27] MEDS: KEPPRA 750 MG in NACL 0.9% 100 ML IV SCH ×2 (10:00→21:54)
--- NOTE | 2016-12-27 10:57 | Anesthesia Consultation ---
Anesthesia Consult and Med Hx Date of service: 12/27/16 - Airway Intubation Access Assessment: Possibly Difficult (patient will not open mouth - some teeth present but unable to make anevaluation) - Pre-Operative Health Status ASA Pre-Surgery Classification: ASA4 Proposed Anesthetic Plan: MAC (pt non-responsive - dementia) - Pulmonary Hx Asthma: No COPD: No Hx Pneumonia: No - Cardiovascular System Hx Pacemaker: No Hx Internal Defibrillator: No - Central Nervous System Hx Neuromuscular Disorder: Yes (arthritis) Hx Seizures: Yes Hx Psychiatric Problems: Yes (dementia) - Gastrointestinal Hx Ulcer: No (sacral ulcer) - Endocrine 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
--- NOTE | 2016-12-27 10:59 | Anesthesia Day of Surgery ---
Anesthesia Day of Surgery - Day of Surgery Patient Examined: Yes Patient H&P Reviewed: Yes Patient is NPO: Yes (assume yes - patient non-responsive)
[2016-12-27] MEDS ORDERED: SODIUM BICARBONATE FEEDTUBE PRN (11:00)
[2016-12-27] MEDS ORDERED: SIMPLE SYRUP FEEDTUBE PRN ×2 (11:00)
[2016-12-27] MEDS ORDERED: PANCREAZE DR 10,500 UNIT FEEDTUBE PRN (11:00)
[2016-12-27] MEDS: KCL 10MEQ/100ML 10 MEQ/100 ML BAG IV SCH ×4 (11:00→14:00)
[2016-12-27] MEDS ORDERED: ANCEF/STERILE WATER 2 GM/20 ML 2 GM/20 ML SYRINGE IV NR (11:00)
[2016-12-27] MEDS: NACL 0.9% 1000 ML 1,000 ML IV SCH ×2 (11:04→15:50)
[2016-12-27] MEDS ORDERED: ANCEF/STERILE WATER 2 GM/20 ML 2 GM/20 ML SYRINGE IV ONE (11:40)
[2016-12-27] MEDS ORDERED: SUBLIMAZE ONE (11:44)
[2016-12-27] MEDS ORDERED: WATER FOR IRRIG STERILE IR ONE (11:44)
[2016-12-27] MEDS ORDERED: VERSED IV ONE ×2 (11:45→12:25)
[2016-12-27] MEDS ORDERED: ANCEF/STERILE WATER 2 GM/20 ML IV ONE (11:48)
[2016-12-27] MEDS ORDERED: KCL 40 MEQ in NACL 0.9% 500 ML 400 ML IV ONE (12:00)
[2016-12-27] MEDS ORDERED: HURRICAINE ONE 20% TOPICAL SPRAY MM ×2 (12:24→12:27)
--- NOTE | 2016-12-27 12:42 | Post Operative Note ---
Pre-op diagnosis: Oropharyngeal dysphagia, malnutrition Post-op diagnosis: other (Normal EGD, successful G-tube placement) Findings: 1. Normal EGD 2. Successful G-tube placement Procedure: EGD/PEG Anesthesia: other (Versed - 0.5 mg) Surgeon: MARGIE ARNOLD Estimated blood loss: minimal Pathology: none Condition: stable Disposition: floor (May initiate TF in 4 hrs. Would loosen bumper to 3 cm tomorrow.)
--- NOTE | 2016-12-27 14:15 | Operative Report ---
PROCEDURE: Upper endoscopy with G-tube placement. PREOPERATIVE DIAGNOSIS: Poor p.o. intake and oropharyngeal dysphagia. POSTOPERATIVE DIAGNOSIS: Normal upper endoscopy and successful G-tube placement. SEDATION: IV conscious using Versed 0.5 mg. HISTORY: The patient is a 76-year-old man with history of seizures and dementia, who is not able to swallow. Procedure, indications, risks, and benefits were explained and consent was obtained. The patient was placed back on exam table and sedated. Fuji video upper endoscope was passed through the mouth and oropharynx into the descending duodenum. Scope was then gradually withdrawn into the gastric lumen with close inspection of mucosa. The stomach was inflated and an appropriate area was transilluminated on the abdominal surface and confirm with 1:1 ballottement. This was prepped and draped in a sterile fashion. A 2 mL of 1% Xylocaine were infiltrated into the skin and subcutaneous tissues using the safe track technique. Percutaneous needle was then placed into the gastric lumen and the guidewire was passed through this. This was grabbed with a snare and pulled out the mouth. A 20-[place] CELINE G-tube was attached to the wire and pulled through the mouth and oropharynx into the gastric lumen and out the skin. External bumper was fixed at 1.5 cm. Repeat endoscopy was performed to confirm placement. FINDINGS: 1. Normal upper endoscopy to descending duodenum. 2. Successful 20-[place] G-tube placement. COMPLICATIONS: None. ESTIMATED BLOOD LOSS: Less than 5 mL. Minimal. DEVICES: A 20-[place] CELINE G-tube left in place. IMPRESSION: 1. Normal upper endoscopy. 2. Successful G-tube placement. PLAN: Initiate tube feedings as per dietary. JOB# [id number] HRC/NTS
--- NOTE | 2016-12-27 14:19 | Progress Note ---
Assessment and Plan Assessment and plan: 76-year-old -Japanese male with no significant past medical history except dementia and failure to thrive brought in by family for 2 new onset seizures. The first one-patient had a blank stare into space and became unresponsive for a few sec. There were no tonic-clonic movements. The second episode happened while around 12 midnight. Patient tonic-clonic movements followed by altered sensorium for 30 minutes. Never had seizures before. Patient has been having progressive and also his weight. Very poor by mouth intake. Patient is cachectic. Patient also had a right sacral ulcer which has healed to a large extent. No fever no chills. No shortness of breath. No recent travel. Acute toxic encephalopathy * Likely secondary to seizure and postictal states. * Continue treatment of underlying disorder patient also possibly has best blood pressure. 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 * spoke with daughter who states patient was verbal until the seizure activity.Peg tube placed today * Aspiration Precautions. Seizure disorder * Witnessed outpatient also in the ER. Continue antiepileptic drugs at this time. Neurology input is noted with an MRI read. * Keppra started was changed to IV since patient not taking any PO and will be change back via NGT in Am * Ativan PRN for breakthrough seziure control Moderate to Severe protein calorie malnutrition. BMI 19.5 * Dietary Aide Teacher consult * The patient continues both of sensorium and benefit from tube placement for nutritional needs. Dementia * Alzheimer's VS vascular dementia. Resume meds as appropriate ?Addisons disease * Because the patient is taking fludrocortisone I'm assuming that patient has [place]'s disease. continue fludrocortisone. * Again we'll clarify with the daughter Acute Cystitis * Start on ZOSYN and stop ceftraixone. Will discontinue today * await urine culture Presumed sepsis- Present on admission. Patient has also been on abx since admission. . Presumed Aspiration Pneumonitis * Noted on xray. no evidence of sepsis * continue abx But change to zosyn. * check lactate level Sacral decubitus ulcer, stage II * Wound care consult requested Complete Immobility Due to Frailty * physical therapy requested DVT prophylaxis * Lovenox 40 mg subcutaneous daily Discussed with Nursing staff an also intensively with the daughter Discharge in AM after GI evaluate Hospitalist Physical - Constitutional Vitals: Temp Pulse Resp BP Pulse Ox 98.8 F 102 H 18 144/83 96 12/27/16 13:44 12/27/16 12:58 12/27/16 13:44 12/27/16 13:44 12/27/16 12:58 General appearance: Present: no acute distress, well-nourished Results - Labs CBC & Chem 7: 12/27/16 03:56 12/27/16 03:56 Labs: Laboratory Last Values WBC 6.2 K/mm3 (4.5-11.0) 12/27/16 03:56 RBC 3.69 M/mm3 (3.65-5.03) 12/27/16 03:56 Hgb 11.7 gm/dl (11.8-15.2) L 12/27/16 03:56 Hct 36.9 % (35.5-45.6) 12/27/16 03:56 MCV 92 fl (84-94) 12/27/16 03:56 MCH 32 pg (28-32) 12/27/16 03:56 MCHC 34 % (32-34) 12/27/16 03:56 RDW 13.6 % (13.2-15.2) 12/27/16 03:56 Plt Count 252 K/mm3 (140-440) 12/27/16 03:56 Lymph % (Auto) 12.8 % (13.4-35.0) L 12/27/16 03:56 [place] % (Auto) 7.0 % (0.0-7.3) 12/27/16 03:56 Eos % (Auto) 0.5 % (0.0-4.3) 12/27/16 03:56 Baso % (Auto) 0.3 % (0.0-1.8) 12/27/16 03:56 Lymph # 0.8 K/mm3 (1.2-5.4) L 12/27/16 03:56 [place] # 0.4 K/mm3 (0.0-0.8) 12/27/16 03:56 Eos # 0.0 K/mm3 (0.0-0.4) 12/27/16 03:56 Baso # 0.0 K/mm3 (0.0-0.1) 12/27/16 03:56 Seg Neutrophils % 79.4 % (40.0-70.0) H 12/27/16 03:56 Seg Neutrophils # 4.9 K/mm3 (1.8-7.7) 12/27/16 03:56 PT 15.2 Sec. (12.2-14.9) H 12/27/16 03:56 INR 1.14 (0.87-1.13) H 12/27/16 03:56 Sodium 146 mmol/L (137-145) H D 12/27/16 03:56 Potassium 3.4 mmol/L (3.6-5.0) L 12/27/16 03:56 Chloride 107.1 mmol/L (98-107) H 12/27/16 03:56 Carbon Dioxide 24 mmol/L (22-30) 12/27/16 03:56 Anion Gap 18 mmol/L 12/27/16 03:56 BUN 7 mg/dL (9-20) L 12/27/16 03:56 Creatinine 0.7 mg/dL (0.8-1.5) L 12/27/16 03:56 Estimated GFR > 60 ml/min 12/27/16 03:56 BUN/Creatinine Ratio 10 % 12/27/16 03:56 Glucose 100 mg/dL (75-100) 12/27/16 03:56 POC Glucose 112 (70-105) H 12/24/16 22:42 Hemoglobin A1c 5.7 % (4-6) 12/21/16 06:18 Calcium 7.6 mg/dL (8.4-10.2) L 12/27/16 03:56 Magnesium 2.10 mg/dL (1.7-2.3) 12/24/16 16:26 Total Bilirubin 0.70 mg/dL (0.1-1.2) 12/22/16 07:37 AST 31 units/L (5-40) 12/22/16 07:37 ALT 11 units/L (7-56) 12/22/16 07:37 Alkaline Phosphatase 106 units/L (35-129) 12/22/16 07:37 Total Protein 7.1 g/dL (6.3-8.2) 12/22/16 07:37 Albumin 3.1 g/dL (3.9-5) L 12/22/16 07:37 Albumin/Globulin Ratio 0.8 % 12/22/16 07:37 Total Cortisol 19.7 mcg/dL () 12/22/16 07:37 Urine Color Yellow (Yellow) 12/21/16 02:57 Urine Turbidity Clear (Clear) 12/21/16 02:57 Urine pH 5.0 (5.0-7.0) 12/21/16 02:57 Ur Specific [place] 1.019 (1.003-1.030) 12/21/16 02:57 Urine Protein 30 mg/dl mg/dL (Negative) 12/21/16 02:57 Urine Glucose (UA) Neg mg/dL (Negative) 12/21/16 02:57 Urine Ketones Tr mg/dL (Negative) 12/21/16 02:57 Urine Blood Mod (Negative) 12/21/16 02:57 Urine Nitrite Pos (Negative) 12/21/16 02:57 Urine Bilirubin Neg (Negative) 12/21/16 02:57 Urine Urobilinogen 4.0 mg/dL (<2.0) 12/21/16 02:57 Ur Leukocyte Esterase Neg (Negative) 12/21/16 02:57 Urine WBC (Auto) 127.0 /HPF (0.0-6.0) H 12/21/16 02:57 Urine RBC (Auto) 31.0 /HPF (0.0-6.0) 12/21/16 02:57 U Epithel Cells (Auto) < 1.0 /HPF (0-13.0) 12/21/16 02:57 Urine Bacteria (Auto) 4+ /HPF (Negative) 12/21/16 02:57 Urine Mucus Few /HPF 12/21/16 02:57 Urine Opiates Screen Presumptive negative 12/21/16 02:57 Urine Methadone Screen Presumptive negative 12/21/16 02:57 Ur Barbiturates Screen Presumptive negative 12/21/16 02:57 Ur Phencyclidine Scrn Presumptive negative 12/21/16 02:57 Ur Amphetamines Screen Presumptive negative 12/21/16 02:57 U Benzodiazepines Scrn Presumptive negative 12/21/16 02:57 Urine Cocaine Screen Presumptive negative 12/21/16 02:57 U Marijuana (THC) Screen Presumptive negative 12/21/16 02:57 Drugs of Abuse Note Disclamer 12/21/16 02:57 Plasma/Serum Alcohol < 0.01 gm% (0-0.07) 12/21/16 01:05
[2016-12-27] MEDS ORDERED: MILK OF MAGNESIA FEEDTUBE PRN (17:03)
[2016-12-27] MEDS: PEPCID FEEDTUBE SCH (21:53)
[2016-12-27] MEDS: FLORINEF FEEDTUBE SCH (21:54)
[2016-12-28] MEDS: ZOSYN/NS 4.5GM/100ML 4.5 GM/100 ML VIAL IV SCH ×2 (05:49→14:22)
--- NOTE | 2016-12-28 08:50 | Discharge Summary ---
Providers - Providers Date of Admission: 12/21/16 06:04 Attending physician: VITALY SNOWDEN MD 12/21/16 06:06 Consult to Physician [CONS] Routine Consulting Provider: JANENE ESTRADA Reason For Exam: seizure-new onset Place consult to:: answering service Notified:: [place] Phone number called:: [phone] If yes, spoke with:: magali Time called:: 10:30 Comment:: jorge a 12/21/16 09:08 Consult to Wound/ET Nurse [CONS] Routine Reason For Exam: wound eval Physical Therapy Evaluation and Treat [CONS] Routine Comment: Reason For Exam: debility 12/21/16 09:09 Consult to Physician [CONS] Routine Consulting Provider: JANENE ESTRADA Reason For Exam: seizure disorder Place consult to:: answering service Notified:: yes Was contact made?: Yes If yes, spoke with:: magali Time called:: 10:30 Comment:: jorge a 12/24/16 16:10 Speech Therapy Evaluation and Treat [CONS] Routine Reason For Exam: aspiration 12/25/16 14:31 Consult to Physician [CONS] Routine Consulting Provider: MARGIE ARNOLD Reason For Exam: DYSPHAGIA- EVAL FOR PEG TUBE Place consult to:: MARGIE LAGUNA Notified:: MARGIE LAGUNA Phone number called:: [phone] Was contact made?: Yes If yes, spoke with:: MARC Time called:: 15:00 Comment:: LEIGH 12/27/16 08:15 Consult to Dietitian/Nutrition [CONS] Routine Physician Instructions: Reason For Exam: Reason for Consult: Write/Manage Tube Feeding 12/27/16 08:22 Consult to Dietitian/Nutrition [CONS] Routine Physician Instructions: Reason For Exam: Reason for Consult: Write/Manage Tube Feeding 12/27/16 13:41 Consult to Dietitian/Nutrition [CONS] Routine Physician Instructions: Reason For Exam: Reason for Consult: Write/Manage Tube Feeding Primary care physician: DIGITAL ACCOUNT DIRECTOR Hospitalization Reason for admission: AMS Condition: Stable Hospital course: 76-year-old -[place]i male with no significant past medical history except dementia and failure to thrive brought in by family for 2 new onset seizures. The first one-patient had a blank stare into space and became unresponsive for a few sec. There were no tonic-clonic movements. The second episode happened while around 12 midnight. Patient tonic-clonic movements followed by altered sensorium for 30 minutes. Never had seizures before. Patient has been having progressive and also his weight. Very poor by mouth intake. Patient is cachectic. Patient also had a right sacral ulcer which has healed to a large extent. No fever no chills. No shortness of breath. No recent travel. On admission images that is negative for CVA except a old CVA. I did speak with the daughter who stated the patient prior to this episode was cumbersome. It does appear_written by neurology of the OCD have been focal trigger further seizure activity. Patient continued to have intermittent seizure in the hospital especially when when his medications were not administered. Nutritional actually had to be established with PEG tube placed per the family's request. He was treated for acute cystitis with IV Zosyn. Currently stable for discharge and follow-up with neurology outpatient. Family has been updated about his clinical status and the likelihood that the patient may not gain prehospital functionality. They are agreeable for placement of the [facility] facility for rehabilitation. Acute toxic encephalopathy Seizure disorder Moderate to Severe protein calorie malnutrition. BMI 19.5 Dementia ?Addisons disease Acute Cystitis Presumed sepsis- Present on admission. Patient has also been on abx since admission. . Presumed Aspiration Pneumonitis Sacral decubitus ulcer, stage II Complete Immobility Due to Frailty Disposition: DC/[place]-[facility] Time spent for discharge: 35 MINS Core Measure Documentation - Palliative Care Palliative Care/ Comfort Measures: Not Applicable - Core Measures Any of the following diagnoses?: none - VTE Discharge Requirements Deep Vein Thrombosis/Pulmonary Embolism Present on Admission: No Exam - Physical Exam Narrative exam: VITAL SIGNS: Reviewed. GENERAL: The patient appeared withdrawn otherwise in no acute distress. Vital signs as documented. HEAD: No signs of head trauma. Marked temporal wasting. EYES: Pupils are equal. EARS: Hearing grossly intact. MOUTH: Oropharynx is normal. NECK: No adenopathy, no JVD. CHEST: Chest with diminished breath sounds crackles bilaterally. No wheezes, rales, or rhonchi. CARDIAC: Regular rate and rhythm. S1 and S2, without murmurs, gallops, or rubs. VASCULAR: No Edema. Peripheral pulses normal and equal in all extremities. ABDOMEN: Soft, without detectable tenderness. No sign of distention. Peg tube in place. No rebound or guarding, and no masses palpated. Bowel Sounds normal. MUSCULOSKELETAL: Extremities without clubbing, cyanosis or edema. NEUROLOGIC EXAM: Awake but could not assess orientation as patient has not followed commands. NON VERBAL PSYCHIATRIC: Mood depressed. SKIN: Pressure ulcers sacral area and heels. Present on admission by age- appropriate with some blemishes - Constitutional Vitals: Temp Pulse Resp BP Pulse Ox 97.0 F L 103 H 20 127/74 97 12/28/16 07:18 12/28/16 07:18 12/28/16 07:18 12/28/16 07:18 12/28/16 07:18 Plan Activity: advance as tolerated, fall precautions, other (SEIZURE PRECAUTIONS) Diet: per dietitian instruction Special Instructions: record daily weights, record daily BP diary, physical therapy, occupational therapy, other (SPEECH THERAPY) Follow up with: PRIMARY CARE, [Primary Care Provider] - 3-5 Days JANENE ESTRADA MD [Staff Physician] - 7 Days Prescriptions: Fludrocortisone [Florinef] 0.05 mg FEEDTUBE QDAY #30 tablet levETIRAcetam [Keppra TAB] 750 mg PO DAILY #30 tablet oxyCODONE /ACETAMINOPHEN [Percocet 5/325 mg] 1 tab PO Q6H PRN #10 tablet PRN Reason: Pain, Moderate (4-6)
--- NOTE | 2016-12-28 09:32 | Progress Note ---
Assessment and Plan Assessment and plan: 76-year-old -[place] male with no significant past medical history except dementia and failure to thrive brought in by family for 2 new onset seizures. The first one-patient had a blank stare into space and became unresponsive for a few sec. There were no tonic-clonic movements. The second episode happened while around 12 midnight. Patient tonic-clonic movements followed by altered sensorium for 30 minutes. Never had seizures before. Patient has been having progressive and also his weight. Very poor by mouth intake. Patient is cachectic. Patient also had a right sacral ulcer which has healed to a large extent. No fever no chills. No shortness of breath. No recent travel. Acute toxic encephalopathy * Likely secondary to seizure and postictal states. * Continue treatment of underlying disorder patient also possibly has best blood pressure. 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 * spoke with daughter who states patient was verbal until the seizure activity.Peg tube placed today * Aspiration Precautions. Seizure disorder * Witnessed outpatient also in the ER. Continue antiepileptic drugs at this time. Neurology input is noted with an MRI read. * Keppra started was changed to IV since patient not taking any PO and will be change back via NGT in Am * Ativan PRN for breakthrough seziure control Moderate to Severe protein calorie malnutrition. BMI 19.5 * Ride Assembly Supervisor consult * The patient continues both of sensorium and benefit from tube placement for nutritional needs. Dementia * Alzheimer's VS vascular dementia. 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 continue fludrocortisone. * Again we'll clarify with the daughter Acute Cystitis * Start on ZOSYN and stop ceftraixone. Will discontinue today * await urine culture Presumed sepsis- Present on admission. Patient has also been on abx since admission. . Presumed Aspiration Pneumonitis * Noted on xray. no evidence of sepsis * continue abx But change to zosyn. * check lactate level Sacral decubitus ulcer, stage II * Wound care consult requested Complete Immobility Due to Frailty * physical therapy requested DVT prophylaxis * Lovenox 40 mg subcutaneous daily Discussed with Nursing staff an also intensively with the daughter Discharge in AM after GI evaluate History Interval history: Patient seen and examined remains withdrawn, not responsive, per nursing staff, no shortness of breath noted. concerned about possible seizure like activity today lasted few seconds Hospitalist Physical - Physical exam Narrative exam: VITAL SIGNS: Reviewed. GENERAL: The patient appeared withdrawn otherwise in no acute distress. Vital signs as documented. HEAD: No signs of head trauma. Marked temporal wasting. EYES: Pupils are equal. EARS: Hearing grossly intact. MOUTH: Oropharynx is normal. NECK: No adenopathy, no JVD. CHEST: Chest with diminished breath sounds crackles bilaterally. No wheezes, rales, or rhonchi. CARDIAC: Regular rate and rhythm. S1 and S2, without murmurs, gallops, or rubs. VASCULAR: No Edema. Peripheral pulses normal and equal in all extremities. ABDOMEN: Soft, without detectable tenderness. No sign of distention. No rebound or guarding, and no masses palpated. Bowel Sounds normal. MUSCULOSKELETAL: Extremities without clubbing, cyanosis or edema. NEUROLOGIC EXAM: Awake but could not assess orientation as patient has not followed commands. PSYCHIATRIC: Mood depressed. SKIN: Pressure ulcers sacral area and heels. Present on admission by age- appropriate with some blemishes - Constitutional Vitals: Temp Pulse Resp BP Pulse Ox 97.0 F L 103 H 20 127/74 97 12/28/16 07:18 12/28/16 07:18 12/28/16 07:18 12/28/16 07:18 12/28/16 07:18 General appearance: Present: no acute distress, well-nourished Results - Labs CBC & Chem 7: 12/27/16 03:56 12/27/16 03:56 Labs: Laboratory Last Values WBC 6.2 K/mm3 (4.5-11.0) 12/27/16 03:56 RBC 3.69 M/mm3 (3.65-5.03) 12/27/16 03:56 Hgb 11.7 gm/dl (11.8-15.2) L 12/27/16 03:56 Hct 36.9 % (35.5-45.6) 12/27/16 03:56 MCV 92 fl (84-94) 12/27/16 03:56 MCH 32 pg (28-32) 12/27/16 03:56 MCHC 34 % (32-34) 12/27/16 03:56 RDW 13.6 % (13.2-15.2) 12/27/16 03:56 Plt Count 252 K/mm3 (140-440) 12/27/16 03:56 Lymph % (Auto) 12.8 % (13.4-35.0) L 12/27/16 03:56 Blount % (Auto) 7.0 % (0.0-7.3) 12/27/16 03:56 Eos % (Auto) 0.5 % (0.0-4.3) 12/27/16 03:56 Baso % (Auto) 0.3 % (0.0-1.8) 12/27/16 03:56 Lymph # 0.8 K/mm3 (1.2-5.4) L 12/27/16 03:56 Blount # 0.4 K/mm3 (0.0-0.8) 12/27/16 03:56 Eos # 0.0 K/mm3 (0.0-0.4) 12/27/16 03:56 Baso # 0.0 K/mm3 (0.0-0.1) 12/27/16 03:56 Seg Neutrophils % 79.4 % (40.0-70.0) H 12/27/16 03:56 Seg Neutrophils # 4.9 K/mm3 (1.8-7.7) 12/27/16 03:56 PT 15.2 Sec. (12.2-14.9) H 12/27/16 03:56 INR 1.14 (0.87-1.13) H 12/27/16 03:56 Sodium 146 mmol/L (137-145) H D 12/27/16 03:56 Potassium 3.4 mmol/L (3.6-5.0) L 12/27/16 03:56 Chloride 107.1 mmol/L (98-107) H 12/27/16 03:56 Carbon Dioxide 24 mmol/L (22-30) 12/27/16 03:56 Anion Gap 18 mmol/L 12/27/16 03:56 BUN 7 mg/dL (9-20) L 12/27/16 03:56 Creatinine 0.7 mg/dL (0.8-1.5) L 12/27/16 03:56 Estimated GFR > 60 ml/min 12/27/16 03:56 BUN/Creatinine Ratio 10 % 12/27/16 03:56 Glucose 100 mg/dL (75-100) 12/27/16 03:56 POC Glucose 112 (70-105) H 12/24/16 22:42 Hemoglobin A1c 5.7 % (4-6) 12/21/16 06:18 Calcium 7.6 mg/dL (8.4-10.2) L 12/27/16 03:56 Magnesium 2.10 mg/dL (1.7-2.3) 12/24/16 16:26 Total Bilirubin 0.70 mg/dL (0.1-1.2) 12/22/16 07:37 AST 31 units/L (5-40) 12/22/16 07:37 ALT 11 units/L (7-56) 12/22/16 07:37 Alkaline Phosphatase 106 units/L (35-129) 12/22/16 07:37 Total Protein 7.1 g/dL (6.3-8.2) 12/22/16 07:37 Albumin 3.1 g/dL (3.9-5) L 12/22/16 07:37 Albumin/Globulin Ratio 0.8 % 12/22/16 07:37 Total Cortisol 19.7 mcg/dL () 12/22/16 07:37 Urine Color Yellow (Yellow) 12/21/16 02:57 Urine Turbidity Clear (Clear) 12/21/16 02:57 Urine pH 5.0 (5.0-7.0) 12/21/16 02:57 Ur Specific Iron 1.019 (1.003-1.030) 12/21/16 02:57 Urine Protein 30 mg/dl mg/dL (Negative) 12/21/16 02:57 Urine Glucose (UA) Neg mg/dL (Negative) 12/21/16 02:57 Urine Ketones Tr mg/dL (Negative) 12/21/16 02:57 Urine Blood Mod (Negative) 12/21/16 02:57 Urine Nitrite Pos (Negative) 12/21/16 02:57 Urine Bilirubin Neg (Negative) 12/21/16 02:57 Urine Urobilinogen 4.0 mg/dL (<2.0) 12/21/16 02:57 Ur Leukocyte Esterase Neg (Negative) 12/21/16 02:57 Urine WBC (Auto) 127.0 /HPF (0.0-6.0) H 12/21/16 02:57 Urine RBC (Auto) 31.0 /HPF (0.0-6.0) 12/21/16 02:57 U Epithel Cells (Auto) < 1.0 /HPF (0-13.0) 12/21/16 02:57 Urine Bacteria (Auto) 4+ /HPF (Negative) 12/21/16 02:57 Urine Mucus Few /HPF 12/21/16 02:57 Urine Opiates Screen Presumptive negative 12/21/16 02:57 Urine Methadone Screen Presumptive negative 12/21/16 02:57 Ur Barbiturates Screen Presumptive negative 12/21/16 02:57 Ur Phencyclidine Scrn Presumptive negative 12/21/16 02:57 Ur Amphetamines Screen Presumptive negative 12/21/16 02:57 U Benzodiazepines Scrn Presumptive negative 12/21/16 02:57 Urine Cocaine Screen Presumptive negative 12/21/16 02:57 U Marijuana (THC) Screen Presumptive negative 12/21/16 02:57 Drugs of Abuse Note Disclamer 12/21/16 02:57 Plasma/Serum Alcohol < 0.01 gm% (0-0.07) 12/21/16 01:05
[2016-12-28] MEDS: FLORINEF FEEDTUBE SCH (10:09)
[2016-12-28] MEDS: PEPCID FEEDTUBE SCH (10:09)
[2016-12-28] MEDS: ASPIRIN PR SCH (10:10)
[2016-12-28] MEDS: LOVENOX SUB-Q SCH (10:10)
[2016-12-28] MEDS ORDERED: ATIVAN IV ONE (11:15)
[2016-12-28] MEDS: KEPPRA 750 MG in NACL 0.9% 100 ML IV SCH (11:17)
[2016-12-28] MEDS ORDERED: SODIUM BICARBONATE FEEDTUBE PRN (11:24)
[2016-12-28] MEDS ORDERED: SIMPLE SYRUP FEEDTUBE PRN ×2 (11:24)
[2016-12-28] MEDS ORDERED: PANCREAZE DR 10,500 UNIT FEEDTUBE PRN (11:24)
[2016-12-28] MEDS ORDERED: ATIVAN IV NR (14:00)
[2016-12-28] MEDS ORDERED: Fluarix Quad 2017-2018(36 MOS+ IM ONE (14:00)
[2016-12-28 14:59] VITALS: BP 132/68
--- NOTE | 2016-12-28 15:36 | Gastroenterology Progress Note ---
Assessment and Plan oropharyngeal dysphagia - s/p peg tube placement on 12/27. external bumper loosened at bedside. cont post peg care daily and tube feeds per nutrition recommendations. will sign off, please call as needed or with questions. Subjective Date of service: 12/28/16 Principal diagnosis: oropharyngeal dysphagia Interval history: pt seen and examined. tolerating tube feeds, no reported events overnight. Objective - Exam Narrative Exam: Gen: NAD, unable to provide history or follow commands CV: RRR Lungs: CTAB Abd: soft, nt, nd, peg site c/d/i; external bumper loosened at bedside - Constitutional Vitals: Temp Pulse Resp BP Pulse Ox 97.0 F L 101 H 20 132/68 94 12/28/16 07:18 12/28/16 12:44 12/28/16 07:18 12/28/16 12:44 12/28/16 12:44 - Labs CBC & Chem 7: 12/27/16 03:56 12/27/16 03:56
== END 2016-12-28 16:00 | DRG 871 ==
LOC: ED 23:13 → 3A 12-21 06:04 → 2B-ACE 12-21 08:13
PROVIDERS: ADMIT Internal Medicine; ATTEND Internal Medicine
PROC: 0DH63UZ Insertion of Feeding Device into Stomach, Percutaneous Approach (ICD-10-PCS; principal; 2016-12-27)
PROC: 3E0234Z Introduction of Serum, Toxoid and Vaccine into Muscle, Percutaneous Approach (ICD-10-PCS; 2016-12-28)
DX: A41.9 Sepsis, unspecified organism (principal); E43 Unspecified severe protein-calorie malnutrition; R53.2 Functional quadriplegia; J69.0 Pneumonitis due to inhalation of food and vomit; G92 Toxic encephalopathy; Z68.1 Body mass index [BMI] 19.9 or less, adult; E27.1 Primary adrenocortical insufficiency; N30.00 Acute cystitis without hematuria; G40.909 Epilepsy, unspecified, not intractable, without status epilepticus; L89.152 Pressure ulcer of sacral region, stage 2; F03.90 Unspecified dementia, unspecified severity, without behavioral disturbance, psychotic disturbance, mood disturbance, and anxiety; M19.90 Unspecified osteoarthritis, unspecified site; R13.12 Dysphagia, oropharyngeal phase; Z23 Encounter for immunization
CPT/HCPCS: 36415; 70450; 70551; 71010; 71020; 80048; 80053; 80307; 80320; 81001; 82533; 82962; 83036; 83735; 85025; 85610; 87086; 90686; 93005; 93010; 94640; 95819; 96361; 96374; 96375; G0480; G8978-GP; G8979-GP; J0360; J0690; J0696; J1170; J1650; J1953; J1956; J2060; J2250; J2543; J3010; J3480; J7030; J7040; J7042

== ENCOUNTER 2016-12-31 15:21 | Inpatient (IN) | payer MEDICARE ==
[2016-12-31] MEDS ORDERED: ATIVAN IV ONE ×2 (15:55→18:46)
[2016-12-31] MEDS ORDERED: KEPPRA 1,000 MG/NS 0.75% 100ML 1,000 MG/100 ML BAG IV ONE (15:55)
[2016-12-31 16:32] LABS: Basophils % (Auto) 0.3 % (0.0-1.8); Eosinophils % (Auto) 1.6 % (0.0-4.3); Hematocrit 36.1 % (35.5-45.6); Hemoglobin 11.7 gm/dl (11.8-15.2); Mean Corpuscular HGB Conc 32 % (32-34); Mean Corpuscular Hemoglobin 30 pg (28-32); Mean Corpuscular Volume 93 fl (84-94); Platelet Count 427 K/mm3 (140-440); Red Cell Distribution Width 14.4 % (13.2-15.2); White Blood Count 10.3 K/mm3 (4.5-11.0)
[2016-12-31 16:48] LABS: Anion Gap 14 mmol/L; BUN/Creatinine Ratio 26; Blood Urea Nitrogen 13 mg/dL (9-20); Calcium 7.9 mg/dL (8.4-10.2); Carbon Dioxide 29 mmol/L (22-30); Chloride 99.5 mmol/L (98-107); Creatine Kinase 745 units/L (55-170); Glucose 100 mg/dL (75-100); Potassium 3.5 mmol/L (3.6-5.0); Sodium 139 mmol/L (137-145)
[2016-12-31] MEDS ORDERED: POTASSIUM CHLORIDE FEEDTUBE ONE (17:00)
[2016-12-31 17:17] LABS: Alanine Aminotransferase 18 units/L (7-56); Albumin 2.2 g/dL (3.9-5); Albumin/Globulin Ratio 0.6 %; Alkaline Phosphatase 57 units/L (35-129)
[2016-12-31 17:19] LABS: Bilirubin,Direct < 0.2 mg/dL (0-0.2)
--- NOTE | 2016-12-31 17:34 | Emergency Department Report ---
ED Seizure HPI - General Chief Complaint: Seizure Stated Complaint: SEIZURE Source: EMS, old records reviewed Mode of arrival: Stretcher Limitations: Physical Limitation - History of Present Illness Initial Comments: 76-year-old male with a past medical history of dementia, [place]'s disease, seizures, and failure to thrive presents to the hospital after having multiple seizures prior to arrival. Niece at the bedside with the patient had at least 8 seizures. EMS reports patient had one seizure in route from [facility] and 2 witnessed seizures here in the hospital. Patient was given 0.5 Ativan prior to arrival. Blood glucose 81 prior to arrival. I was called to bedside at the completion of a seizure and instructed went by 1 mg of Ativan. Patient is unable to provide any history of present illness this time. Per niece at his baseline patient is able to have a speak but is pretty much breakdown. Patient was recently discharged from the hospital here and had a PEG placed during that admission he also reports that patient had a recent chest x-ray showing pneumonia. Patient presents with lab work from the [facility]. He had blood work drawn today the and has Keppra level of 28.7. Apparently patient receives Keppra 750 mg per PEG tube every morning. Estimated adequate therapeutic Levels based on 500 mg twice a day is 2.1-10 mcg/mL trough, 1000 mg twice a day is 4.9-37.1 mcg/mm trough Recent admission diagnoses as per discharge summary Acute toxic encephalopathy Seizure disorder (new onset during admission) Moderate to Severe protein calorie malnutrition. BMI 19.5 Dementia ?Addisons disease Acute Cystitis Presumed sepsis- Present on admission. Patient has also been on abx since admission. . Presumed Aspiration Pneumonitis Sacral decubitus ulcer, stage II Complete Immobility Due to Frailty - Related Data Home Medications Medication Instructions Recorded Confirmed Last Taken Furosemide [Lasix] 20 mg FEEDTUBE ONCE 12/31/16 12/31/16 Unknown Ipratropium/Albuterol Sulfate 1 neb IH Q4HR 12/31/16 12/31/16 Unknown [DUONEB *Not for PRN Use*] LORazepam [Ativan INJ] 0.5 ml IM Q6H PRN 12/31/16 12/31/16 Unknown LORazepam [Ativan] 0.5 mg FEEDTUBE Q6H PRN 12/31/16 12/31/16 Unknown RX: Acetaminophen [Acetaminophen 650 mg FEEDTUBE Q8H PRN 12/31/16 12/31/16 Unknown TAB] RX: Fludrocortisone [Florinef] 0.05 mg FEEDTUBE QAM 12/31/16 12/31/16 Unknown RX: oxyCODONE /ACETAMINOPHEN 1 tab FEEDTUBE Q6H PRN 12/31/16 12/31/16 Unknown [Percocet 5/325 mg] guaiFENesin ER [Mucinex ER] 600 mg FEEDTUBE Q12H PRN 12/31/16 12/31/16 Unknown levETIRAcetam [Keppra TAB] 750 mg FEEDTUBE DAILY 12/31/16 12/31/16 Unknown Allergies Allergy/AdvReac Type Severity Reaction Status Date / Time No Known Allergies Allergy Verified 06/26/14 23:54 ED Review of Systems ROS: Stated complaint: SEIZURE Other details as noted in HPI Comment: Unobtainable due to pts medical conditions ED Past Medical Hx - Past Medical History Hx Congestive Heart Failure: No Hx Diabetes: No Hx Deep Vein Thrombosis: No Hx Renal Disease: No ([place]'s disease) Hx Seizures: Yes Hx Asthma: No Hx COPD: No Hx Dementia: Yes Hx HIV: No Additional medical history: Dementia. Failure to thrive - Surgical History Past Surgical History?: Yes Hx Pacemaker: No Hx Internal Defibrillator: No Additional Surgical History: Tonsillectomy, prostate seed implants , Gtube placement - Social History Smoking Status: Unknown if ever smoked - Medications Home Medications: Home Medications Medication Instructions Recorded Confirmed Last Taken Type Furosemide [Lasix] 20 mg FEEDTUBE ONCE 12/31/16 12/31/16 Unknown History Ipratropium/Albuterol Sulfate 1 neb IH Q4HR 12/31/16 12/31/16 Unknown History [DUONEB *Not for PRN Use*] LORazepam [Ativan INJ] 0.5 ml IM Q6H PRN 12/31/16 12/31/16 Unknown History LORazepam [Ativan] 0.5 mg FEEDTUBE Q6H PRN 12/31/16 12/31/16 Unknown History RX: Acetaminophen [Acetaminophen 650 mg FEEDTUBE Q8H PRN 12/31/16 12/31/16 Unknown History TAB] RX: Fludrocortisone [Florinef] 0.05 mg FEEDTUBE QAM 12/31/16 12/31/16 Unknown History RX: oxyCODONE /ACETAMINOPHEN 1 tab FEEDTUBE Q6H PRN 12/31/16 12/31/16 Unknown History [Percocet 5/325 mg] guaiFENesin ER [Mucinex ER] 600 mg FEEDTUBE Q12H PRN 12/31/16 12/31/16 Unknown History levETIRAcetam [Keppra TAB] 750 mg FEEDTUBE DAILY 12/31/16 12/31/16 Unknown History ED Physical Exam - General Limitations: Physical Limitation - Other Other exam information: General: Patient postictal Head exam: Atraumatic, normocephalic Eyes exam: Pupils equal react to light, normal. ENT: No tongue laceration Neck exam: Normal inspection, full range of motion, no meningismus nontender Respiratory exam: Clear to auscultation bilateral, no wheezes, rales, crackles Cardiovascular: Mild tachycardia, regular rhythm Abdomen: Soft, nondistended, and nontender, with normal bowel sounds, no rebound, or guarding. Positive PEG tube Extremity: Contracted extremities Back: Normal Inspection Neurologic: Lethargic, postictal, no facial droop, will not follow commands, ED Course Vital Signs 12/31/16 12/31/16 12/31/16 15:49 16:00 16:03 Temperature Pulse Rate 108 H 106 H Respiratory 27 H 29 H 24 Rate Blood Pressure 124/67 Blood Pressure 124/67 [Left] O2 Sat by Pulse 98 Oximetry 12/31/16 12/31/16 12/31/16 16:16 16:17 16:30 Temperature 100 F H Pulse Rate 105 H 104 H Respiratory 26 H 22 Rate Blood Pressure 124/67 124/67 Blood Pressure [Left] O2 Sat by Pulse 96 98 Oximetry 12/31/16 12/31/16 12/31/16 17:23 17:30 17:46 Temperature Pulse Rate 101 H 100 H Respiratory 18 25 H Rate Blood Pressure 116/62 117/63 103/52 Blood Pressure [Left] O2 Sat by Pulse 98 97 99 Oximetry 12/31/16 12/31/16 12/31/16 18:00 18:16 18:30 Temperature Pulse Rate 100 H 103 H 100 H Respiratory 24 24 24 Rate Blood Pressure 101/47 130/72 123/65 Blood Pressure [Left] O2 Sat by Pulse 99 97 95 Oximetry 12/31/16 12/31/16 12/31/16 18:46 19:00 19:16 Temperature Pulse Rate 101 H 98 H 98 H Respiratory 21 28 H 23 Rate Blood Pressure 103/51 111/66 113/63 Blood Pressure [Left] O2 Sat by Pulse 98 99 Oximetry ED Medical Decision Making - Lab Data Result diagrams: 12/31/16 16:08 12/31/16 16:16 Lab Results 12/31/16 12/31/16 12/31/16 Range/Units 16:08 16:08 16:15 WBC 10.3 (4.5-11.0) K/mm3 RBC 3.90 (3.65-5.03) M/mm3 Hgb 11.7 L (11.8-15.2) gm/dl Hct 36.1 (35.5-45.6) % MCV 93 (84-94) fl MCH 30 (28-32) pg MCHC 32 (32-34) % RDW 14.4 (13.2-15.2) % Plt Count 427 (140-440) K/mm3 Lymph % (Auto) 9.1 L (13.4-35.0) % [place] % (Auto) 3.1 (0.0-7.3) % Eos % (Auto) 1.6 (0.0-4.3) % Baso % (Auto) 0.3 (0.0-1.8) % Lymph # 0.9 L (1.2-5.4) K/mm3 [place] # 0.3 (0.0-0.8) K/mm3 Eos # 0.2 (0.0-0.4) K/mm3 Baso # 0.0 (0.0-0.1) K/mm3 Seg Neutrophils % 85.9 H (40.0-70.0) % Seg Neutrophils # 8.9 H (1.8-7.7) K/mm3 VBG pH 7.366 (7.320-7.420) Sodium (137-145) mmol/L Potassium (3.6-5.0) mmol/L Chloride (98-107) mmol/L Carbon Dioxide (22-30) mmol/L Anion Gap mmol/L BUN (9-20) mg/dL Creatinine (0.8-1.5) mg/dL Estimated GFR ml/min BUN/Creatinine Ratio % Glucose (75-100) mg/dL Lactic Acid 1.60 (0.7-2.0) mmol/L Calcium (8.4-10.2) mg/dL Magnesium (1.7-2.3) mg/dL Total Bilirubin (0.1-1.2) mg/dL Direct Bilirubin (0-0.2) mg/dL AST (5-40) units/L ALT (7-56) units/L Alkaline Phosphatase (35-129) units/L Total Creatine Kinase (55-170) units/L Total Protein (6.3-8.2) g/dL Albumin (3.9-5) g/dL Albumin/Globulin Ratio % 12/31/16 12/31/16 Range/Units 16:16 16:16 WBC (4.5-11.0) K/mm3 RBC (3.65-5.03) M/mm3 Hgb (11.8-15.2) gm/dl Hct (35.5-45.6) % MCV (84-94) fl MCH (28-32) pg MCHC (32-34) % RDW (13.2-15.2) % Plt Count (140-440) K/mm3 Lymph % (Auto) (13.4-35.0) % [place] % (Auto) (0.0-7.3) % Eos % (Auto) (0.0-4.3) % Baso % (Auto) (0.0-1.8) % Lymph # (1.2-5.4) K/mm3 [place] # (0.0-0.8) K/mm3 Eos # (0.0-0.4) K/mm3 Baso # (0.0-0.1) K/mm3 Seg Neutrophils % (40.0-70.0) % Seg Neutrophils # (1.8-7.7) K/mm3 VBG pH (7.320-7.420) Sodium 139 (137-145) mmol/L Potassium 3.5 L (3.6-5.0) mmol/L Chloride 99.5 (98-107) mmol/L Carbon Dioxide 29 (22-30) mmol/L Anion Gap 14 mmol/L BUN 13 (9-20) mg/dL Creatinine 0.5 L (0.8-1.5) mg/dL Estimated GFR > 60 ml/min BUN/Creatinine Ratio 26 % Glucose 100 (75-100) mg/dL Lactic Acid (0.7-2.0) mmol/L Calcium 7.9 L (8.4-10.2) mg/dL Magnesium 2.10 (1.7-2.3) mg/dL Total Bilirubin 0.30 (0.1-1.2) mg/dL Direct Bilirubin < 0.2 (0-0.2) mg/dL AST 41 H (5-40) units/L ALT 18 (7-56) units/L Alkaline Phosphatase 57 (35-129) units/L Total Creatine Kinase 745 H (55-170) units/L Total Protein 6.0 L (6.3-8.2) g/dL Albumin 2.2 L (3.9-5) g/dL Albumin/Globulin Ratio 0.6 % - EKG Data -: EKG Interpreted by [facility] EKG shows normal: sinus rhythm, axis (qrs 34), QRS complexes (qrs 80), ST-T waves (no stemi/ t inv) Rate: tachycardia (107) - Radiology Data Radiology results: report reviewed CT head: Atrophy, moderate periventricular white matter change and right thalamic and basal ganglia likely stable. Consider chronic small vessel ischemic change also considered demyelination. Consider MRI. See report Chest x-ray: Aortic tortuosity. Hyperinflation suggestive of obstructive physiology. Coarse interstitial prominence and bronchial wall thickening. Multifocal perihilar and infrahilar airspace disease left greater than the right. Consider pneumonitis/bronchitis and/or aspiration. Consider asymmetric pulmonary edema. Recommend follow-up to exclude underlying neoplastic etiology - Medical Decision Making Corrected calcium level based on patient's hypoalbuminemia is 9.3 and within normal range Patient received IV Keppra load. Patient received by potassium chloride via feeding tube. Until some Levaquin order for possible pneumonia. Patient had similar infiltrates on previous x-ray but appeared to be worsened today with possibility of aspiration pneumonia. Patient will be admitted to the hospital - Differential Diagnosis intracranial hemorrhage, Intracranial mass, aspiration pneumonia Critical Care Time: No Critical care attestation.: If time is entered above; I have spent that time in minutes in the direct care of this critically ill patient, excluding procedure time. ED Disposition Clinical Impression: Recurrent seizures, Pulmonary infiltrates on CXR, Hypokalemia Disposition: DC-09 OP ADMIT IP TO THIS HOSP Is pt being admited?: Yes Condition: Stable Time of Disposition: 20:12 (Dr wheeler/hosp)
--- NOTE | 2016-12-31 17:51 | Cat Scan Report ---
FINAL REPORT PROCEDURE: CT HEAD/BRAIN WO CON TECHNIQUE: Computerized tomography of the head was performed without contrast material. DLP 1003.91 mGy-cm. HISTORY: Multiple seizures. COMPARISON: CT scan of the brain dated 12/21/2016. MRI of the brain dated 12/24/2016. FINDINGS: Skull and scalp: Moderate degenerative changes of the cervical spine on lateral view. Slight C2-3 anterolisthesis. Osteopenia. Paranasal sinuses: Normal. Ventricles and subarachnoid spaces: Ventricles are prominent. Cerebrum: No evidence of hemorrhage, acute infarction or mass. Moderate atrophy. Moderate periventricular white matter low attenuation. Stable 3 millimeter right thalamic lacune. Probable smaller bilateral basal ganglia lacunes. Findings appear relatively unchanged compared to the prior examination. Bilateral basal ganglia calcifications. Area of restricted diffusion seen on MRI is difficult to appreciate in the midst of the moderate white matter change on CT scan. Cerebellum and brainstem: No evidence of hemorrhage, acute infarction or mass. Vasculature: Moderate atherosclerosis. Comments: None. IMPRESSION: Atrophy. Ventricular prominence, likely related to the degree of atrophy. Moderate periventricular white matter change and right thalamic and basal ganglia lacunes, stable. Consider chronic small vessel ischemic change, also consider demyelination. Area of restricted diffusion on MRI suggesting acute ischemia is difficult to appreciate in the midst of the moderate white matter change on CT scan. Recommend repeat MRI for further evaluation if there is continued clinical concern for acute process.
--- NOTE | 2016-12-31 18:16 | XRay Report ---
FINAL REPORT PROCEDURE: XR CHEST 1V AP TECHNIQUE: Chest radiograph anteroposterior view. CPT 61063 HISTORY: Multiple seizures. COMPARISON: No prior studies are available for comparison. FINDINGS: Heart: Normal. Mediastinum/Vessels: Aortic tortuosity.. Lungs/Pleural space: Mild hyperinflation. Coarse interstitial prominence and peribronchial thickening. More focal moderate left perihilar and infrahilar airspace disease. Findings noted to a lesser degree on the right. Bony thorax: Osteopenia. Mild degenerative changes spine. Life support devices: None. IMPRESSION: Aortic tortuosity. Hyperinflation suggests obstructive physiology. Coarse interstitial prominence and bronchial wall thickening. More focal perihilar and infrahilar airspace disease, left greater than right. Consider pneumonitis/bronchitis and/or aspiration. Also consider asymmetric pulmonary edema. Recommend follow-up to exclude underlying neoplastic etiology.
[2016-12-31] MEDS ORDERED: ZOSYN/NS 4.5GM/100ML 4.5 GM/100 ML VIAL IV ONE (18:20)
[2016-12-31] MEDS ORDERED: LEVAQUIN 750MG/150ML 750 MG/150 ML BAG IV ONE (18:20)
[2016-12-31 18:37] LABS: Bilirubin,Urine NEG (Negative); Blood,Urine SM (Negative); Ketones,Urine NEG (Negative); Leukocyte Esterase,Urine NEG (Negative); Mucus,Urine FEW /HPF; Nitrite,Urine NEG (Negative); Protein,Urine <15 mg/dL mg/dL (Negative); Urobilinogen,Urine < 2.0 mg/dL (<2.0)
--- NOTE | 2016-12-31 21:57 | History and Physical Report ---
History of Present Illness Date of examination: 12/31/16 Date of admission: 12/31/16 20:14 History of present illness: 75-year-old man with a history of prostate cancer, seizure was sent to the emergency room from the longterm because she had 3 seizures at the longterm, one in route to the hospital and 2 in the emergency room. The patient was loaded with IV Keppra and given IV Ativan. Review of system is unobtainable PAST SURGICAL HISTORY:None SOCIAL HISTORY:Denies alcohol, tobacco or drugs, longterm resident FAMILY HISTORY Hypertension Medications and Allergies Allergies Allergy/AdvReac Type Severity Reaction Status Date / Time No Known Allergies Allergy Verified 06/26/14 23:54 Home Medications Medication Instructions Recorded Confirmed Last Taken Type Acetaminophen [Acetaminophen TAB] 650 mg FEEDTUBE Q8H PRN 12/31/16 12/31/16 Unknown History Fludrocortisone [Florinef] 0.05 mg FEEDTUBE QAM 12/31/16 12/31/16 Unknown History Furosemide [Lasix] 20 mg FEEDTUBE ONCE 12/31/16 12/31/16 Unknown History Ipratropium/Albuterol Sulfate 1 neb IH Q4HR 12/31/16 12/31/16 Unknown History [DUONEB *Not for PRN Use*] LORazepam [Ativan INJ] 0.5 ml IM Q6H PRN 12/31/16 12/31/16 Unknown History LORazepam [Ativan] 0.5 mg FEEDTUBE Q6H PRN 12/31/16 12/31/16 Unknown History guaiFENesin ER [Mucinex ER] 600 mg FEEDTUBE Q12H PRN 12/31/16 12/31/16 Unknown History levETIRAcetam [Keppra TAB] 750 mg FEEDTUBE DAILY 12/31/16 12/31/16 Unknown History oxyCODONE /ACETAMINOPHEN [Percocet 1 tab FEEDTUBE Q6H PRN 12/31/16 12/31/16 Unknown History 5/325 mg] Exam - Physical Exam Narrative exam: Gen. appearance: Patient lying in bed in no acute distress HEENT: Normocephalic/atraumatic, pupils equal round reactive to light, extra alkaline movement intact, no scleral icterus, no JVD or thyromegaly or nodule, neck is supple, mucous membrane moist, no erythema or exudate Heart: S1-S2, regular rate and rhythm Lungs: Clear to auscultation anteriorly bilateral breathing comfortable Abdomen: Positive bowel sounds, nontender, nondistended, no organomegaly Extremities: No edema, cyanosis, clubbing Neuro:: Oriented 3 , cranial nerves II-12 intact, speech, motor intact Skin: Sacral decubitus, No rash, nodules, warm dry - Constitutional Vitals: Temp Pulse Resp BP Pulse Ox 100 F H 100 H 29 H 111/61 96 12/31/16 16:17 12/31/16 21:50 12/31/16 21:50 12/31/16 21:50 12/31/16 21:50 Results - Labs CBC & Chem 7: 01/02/17 04:47 12/31/16 16:16 Labs: Abnormal lab results 12/31/16 12/31/16 12/31/16 Range/Units 16:08 16:16 16:16 Hgb 11.7 L (11.8-15.2) gm/dl Lymph % (Auto) 9.1 L (13.4-35.0) % Lymph # 0.9 L (1.2-5.4) K/mm3 Seg Neutrophils % 85.9 H (40.0-70.0) % Seg Neutrophils # 8.9 H (1.8-7.7) K/mm3 Potassium 3.5 L (3.6-5.0) mmol/L Creatinine 0.5 L (0.8-1.5) mg/dL Calcium 7.9 L (8.4-10.2) mg/dL AST 41 H (5-40) units/L Total Creatine Kinase 745 H (55-170) units/L Total Protein 6.0 L (6.3-8.2) g/dL Albumin 2.2 L (3.9-5) g/dL - Imaging and Cardiology Chest x-ray: report reviewed CT Scan - head: report reviewed Assessment and Plan Assessment Sepsis Acute Seizures aspiration pneumonia History of prostate cancer Dementia [place]'s disease Sacral decubitus Plan Admit to medicine Start IV fluids, IV Zosyn, follow cultures Start IV Ativan as needed for seizure, consult neurology Consult wound care Continue appropriate outpatient medication DVT prophylaxis
[2017-01-01] MEDS ORDERED: ZOFRAN IV PRN (00:21)
[2017-01-01] MEDS ORDERED: TYLENOL PO PRN ×2 (00:21→02:00)
[2017-01-01] MEDS: NACL 0.45% 1000 ML 1,000 ML IV SCH ×2 (01:31→17:40)
[2017-01-01] MEDS ORDERED: TYLENOL FEEDTUBE PRN ×2 (01:34→07:00)
[2017-01-01] MEDS ORDERED: ATIVAN FEEDTUBE PRN (01:34)
[2017-01-01] MEDS: ATIVAN IV PRN ×2 (01:42→13:24)
[2017-01-01] MEDS: DUONEB *Not for PRN Use IH SCH ×6 (02:42→19:41)
[2017-01-01 06:48] LABS: Bilirubin,Urine NEG (Negative); Blood,Urine SM (Negative); Ketones,Urine 20 mg/dL (Negative); Leukocyte Esterase,Urine NEG (Negative); Nitrite,Urine NEG (Negative); Protein,Urine <15 mg/dL mg/dL (Negative); Urobilinogen,Urine < 2.0 mg/dL (<2.0)
[2017-01-01] MEDS: ZOSYN/NS 3.375GM/50ML 3.375 GM/50 ML BAG IV SCH ×3 (07:05→22:14)
--- NOTE | 2017-01-01 08:55 | Consultation ---
History of Present Illness - Reason for Consult Consult date: 01/01/17 Co management Requesting physician: SUKHI SEALS - History of Present Illness Thank you for this consult.patient seen /examined, well known to me from the ME. He had some epileptic activity in the ME. I had loaded him with Keppra, and started on ativan at the ME, yet he continued to have this activity.Labs reviewed, and fair, with mild anemia. Medications and Allergies Allergies Allergy/AdvReac Type Severity Reaction Status Date / Time No Known Allergies Allergy Verified 06/26/14 23:54 Home Medications Medication Instructions Recorded Confirmed Last Taken Type Acetaminophen [Acetaminophen TAB] 650 mg FEEDTUBE Q8H PRN 12/31/16 12/31/16 Unknown History Fludrocortisone [Florinef] 0.05 mg FEEDTUBE QAM 12/31/16 12/31/16 Unknown History Furosemide [Lasix] 20 mg FEEDTUBE ONCE 12/31/16 12/31/16 Unknown History Ipratropium/Albuterol Sulfate 1 neb IH Q4HR 12/31/16 12/31/16 Unknown History [DUONEB *Not for PRN Use*] LORazepam [Ativan INJ] 0.5 ml IM Q6H PRN 12/31/16 12/31/16 Unknown History LORazepam [Ativan] 0.5 mg FEEDTUBE Q6H PRN 12/31/16 12/31/16 Unknown History guaiFENesin ER [Mucinex ER] 600 mg FEEDTUBE Q12H PRN 12/31/16 12/31/16 Unknown History levETIRAcetam [Keppra TAB] 750 mg FEEDTUBE DAILY 12/31/16 12/31/16 Unknown History oxyCODONE /ACETAMINOPHEN [Percocet 1 tab FEEDTUBE Q6H PRN 12/31/16 12/31/16 Unknown History 5/325 mg] Active Meds: Active Medications Acetaminophen (Tylenol) 650 mg FEEDTUBE Q8H PRN PRN Reason: Non Cardiac Pain or Temp>100.5 Albuterol/Ipratropium (Duoneb *Not For Prn Use*) 1 ampul IH Q4HRT [facility] Last Admin: 01/01/17 04:03 Dose: Not Given Fludrocortisone Acetate (Florinef) 0.05 mg FEEDTUBE QAM [facility] Sodium Chloride (Nacl 0.45% 1000 Ml) 1,000 mls @ 75 mls/hr IV DIRECT [facility] Last Admin: 01/01/17 01:31 Dose: 75 mls/hr Piperacillin Sod/Tazobactam Sod (Zosyn/Ns 3.375gm/50ml) 3.375 gm in 50 mls @ 100 mls/hr IV Q8HR [facility]REK[facility] PRN Reason: Protocol Last Admin: 01/01/17 07:05 Dose: 100 mls/hr Levetiracetam (Keppra) 750 mg FEEDTUBE DAILY [facility] Lorazepam (Ativan) 1 mg IV Q4H PRN PRN Reason: Seizures Last Admin: 01/01/17 01:42 Dose: 1 mg Lorazepam (Ativan) 0.5 mg FEEDTUBE Q6H PRN PRN Reason: Seizures Last Admin: 01/01/17 07:55 Dose: 0.5 mg Ondansetron HCl (Zofran) 4 mg IV Q8H PRN PRN Reason: N/V unrelieved by Darrion Review of Systems Genitourinary Male: dysuria Exam - Constitutional Vitals: Temp Pulse Resp BP Pulse Ox 98.0 F 68 24 104/61 99 01/01/17 04:51 01/01/17 05:03 01/01/17 04:51 01/01/17 04:51 01/01/17 04:51 General appearance: Present: mild distress, well-nourished - EENT Eyes: Present: PERRL ENT: hearing intact, clear oral mucosa - Neck Neck: Present: supple, normal ROM - Respiratory Respiratory effort: normal Respiratory: bilateral: CTA - Cardiovascular Heart Sounds: Present: S1 & S2. Absent: rub, click - Extremities Extremities: pulses symmetrical, No edema Peripheral Pulses: within normal limits - Abdominal General gastrointestinal: Present: soft, non-tender, non-distended, normal bowel sounds Male genitourinary: Present: deferred - Rectal Rectal Exam: deferred - Integumentary Integumentary: Present: clear, warm, dry - Musculoskeletal Musculoskeletal: gait normal, strength equal bilaterally - Psychiatric Psychiatric: appropriate mood/affect - Neurologic Neurologic: CNII-XII intact, moves all extremities Results - Labs CBC & Chem 7: 12/31/16 16:08 12/31/16 16:16 Labs: Abnormal lab results 12/31/16 12/31/16 12/31/16 Range/Units 16:08 16:16 16:16 Hgb 11.7 L (11.8-15.2) gm/dl Lymph % (Auto) 9.1 L (13.4-35.0) % Lymph # 0.9 L (1.2-5.4) K/mm3 Seg Neutrophils % 85.9 H (40.0-70.0) % Seg Neutrophils # 8.9 H (1.8-7.7) K/mm3 Potassium 3.5 L (3.6-5.0) mmol/L Creatinine 0.5 L (0.8-1.5) mg/dL Calcium 7.9 L (8.4-10.2) mg/dL AST 41 H (5-40) units/L Total Creatine Kinase 745 H (55-170) units/L Total Protein 6.0 L (6.3-8.2) g/dL Albumin 2.2 L (3.9-5) g/dL Assessment and Plan - Patient Problems (1) Recurrent seizures Current Visit: Yes Status: Acute Plan to address problem: Await neurology eval. (2) Altered mental status Current Visit: No Status: Acute Plan to address problem: This is due to the seizure., same as above.
[2017-01-01] MEDS ORDERED: KEPPRA FEEDTUBE SCH (10:00)
[2017-01-01] MEDS: FLORINEF FEEDTUBE SCH (10:13)
--- NOTE | 2017-01-01 10:57 | Progress Note ---
Assessment and Plan Assessment and plan: Intractable seizure Subacute infarction Hand's disease Functional quadriplegia Sacral decubitus ulcer -Patient is on IV Keppra and lorazepam, was given a dose of fosphenytoin - Patient is on aspirin and statin - Continue appropriate home medications - Neurology consult appreciated - MRI showed subacute stroke DVT prophylaxis - Heparin Disposition - Continue inpatient care History Interval history: Patient seen and evaluated, he had episodes of seizure. Hospitalist Physical - Physical exam Narrative exam: Not in cardiopulmonary distress. The patient is emaciated. Vital signs as documented. Head exam is unremarkable. No scleral icterus . Neck is without jugular venous distension, thyromegaly, or carotid bruits. Lungs are clear to auscultation. Cardiac exam reveals regular rate and Rhythm. First and second heart sounds normal. No murmurs, rubs or gallops. Abdominal exam reveals normal bowel sounds, no masses, no organomegaly and no aortic enlargement. Extremities contracted. Sacral decubitus ulcer. 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 No focal weakness. - Constitutional Vitals: Temp Pulse Resp BP Pulse Ox 98.9 F 104 H 16 118/56 99 01/01/17 08:00 01/01/17 08:00 01/01/17 08:00 01/01/17 08:00 01/01/17 08:00 General appearance: Present: mild distress, well-nourished Results - Labs CBC & Chem 7: 12/31/16 16:08 12/31/16 16:16 Labs: Laboratory Last Values WBC 10.3 K/mm3 (4.5-11.0) 12/31/16 16:08 RBC 3.90 M/mm3 (3.65-5.03) 12/31/16 16:08 Hgb 11.7 gm/dl (11.8-15.2) L 12/31/16 16:08 Hct 36.1 % (35.5-45.6) 12/31/16 16:08 MCV 93 fl (84-94) 12/31/16 16:08 MCH 30 pg (28-32) 12/31/16 16:08 MCHC 32 % (32-34) 12/31/16 16:08 RDW 14.4 % (13.2-15.2) 12/31/16 16:08 Plt Count 427 K/mm3 (140-440) 12/31/16 16:08 Lymph % (Auto) 9.1 % (13.4-35.0) L 12/31/16 16:08 [place] % (Auto) 3.1 % (0.0-7.3) 12/31/16 16:08 Eos % (Auto) 1.6 % (0.0-4.3) 12/31/16 16:08 Baso % (Auto) 0.3 % (0.0-1.8) 12/31/16 16:08 Lymph # 0.9 K/mm3 (1.2-5.4) L 12/31/16 16:08 [place] # 0.3 K/mm3 (0.0-0.8) 12/31/16 16:08 Eos # 0.2 K/mm3 (0.0-0.4) 12/31/16 16:08 Baso # 0.0 K/mm3 (0.0-0.1) 12/31/16 16:08 Seg Neutrophils % 85.9 % (40.0-70.0) H 12/31/16 16:08 Seg Neutrophils # 8.9 K/mm3 (1.8-7.7) H 12/31/16 16:08 VBG pH 7.366 (7.320-7.420) 12/31/16 16:15 Sodium 139 mmol/L (137-145) 12/31/16 16:16 Potassium 3.5 mmol/L (3.6-5.0) L 12/31/16 16:16 Chloride 99.5 mmol/L (98-107) 12/31/16 16:16 Carbon Dioxide 29 mmol/L (22-30) 12/31/16 16:16 Anion Gap 14 mmol/L 12/31/16 16:16 BUN 13 mg/dL (9-20) 12/31/16 16:16 Creatinine 0.5 mg/dL (0.8-1.5) L 12/31/16 16:16 Estimated GFR > 60 ml/min 12/31/16 16:16 BUN/Creatinine Ratio 26 % 12/31/16 16:16 Glucose 100 mg/dL (75-100) 12/31/16 16:16 Lactic Acid 1.60 mmol/L (0.7-2.0) 12/31/16 16:08 Calcium 7.9 mg/dL (8.4-10.2) L 12/31/16 16:16 Magnesium 2.10 mg/dL (1.7-2.3) 12/31/16 16:16 Total Bilirubin 0.30 mg/dL (0.1-1.2) 12/31/16 16:16 Direct Bilirubin < 0.2 mg/dL (0-0.2) 12/31/16 16:16 AST 41 units/L (5-40) H 12/31/16 16:16 ALT 18 units/L (7-56) 12/31/16 16:16 Alkaline Phosphatase 57 units/L (35-129) 12/31/16 16:16 Total Creatine Kinase 745 units/L (55-170) H 12/31/16 16:16 Total Protein 6.0 g/dL (6.3-8.2) L 12/31/16 16:16 Albumin 2.2 g/dL (3.9-5) L 12/31/16 16:16 Albumin/Globulin Ratio 0.6 % 12/31/16 16:16 Urine Color Yellow (Yellow) 01/01/17 06:21 Urine Turbidity Clear (Clear) 01/01/17 06:21 Urine pH 7.0 (5.0-7.0) 01/01/17 06:21 Ur Specific [employer] 1.021 (1.003-1.030) 01/01/17 06:21 Urine Protein <15 mg/dl mg/dL (Negative) 01/01/17 06:21 Urine Glucose (UA) Neg mg/dL (Negative) 01/01/17 06:21 Urine Ketones 20 mg/dL (Negative) 01/01/17 06:21 Urine Blood Sm (Negative) 01/01/17 06:21 Urine Nitrite Neg (Negative) 01/01/17 06:21 Urine Bilirubin Neg (Negative) 01/01/17 06:21 Urine Urobilinogen < 2.0 mg/dL (<2.0) 01/01/17 06:21 Ur Leukocyte Esterase Neg (Negative) 01/01/17 06:21 Urine WBC (Auto) 4.0 /HPF (0.0-6.0) 01/01/17 06:21 Urine RBC (Auto) 15.0 /HPF (0.0-6.0) 01/01/17 06:21 U Epithel Cells (Auto) < 1.0 /HPF (0-13.0) 01/01/17 06:21 Urine Mucus Few /HPF 12/31/16 18:04
[2017-01-01] MEDS ORDERED: CEREBYX IV ONE ×2 (11:00→11:30)
[2017-01-01] MEDS ORDERED: KEPPRA 1,000 MG in NACL 0.9% 100 ML IV SCH (11:00)
[2017-01-01] MEDS ORDERED: [UNRECOGNIZED DRUG - OTHER] IV ONE (11:30)
[2017-01-01] MEDS ORDERED: NACL IV ONE (11:30)
--- NOTE | 2017-01-01 13:05 | Magnetic Resonance Report ---
MRI BRAIN WITHOUT CONTRAST: 12/31/16 20:14:00 CLINICAL: CVA COMPARISON: 12/24/16 TECHNIQUE: Axial diffusion, T1, T2, FLAIR, gradient echo T2*, and sagittal T1 sequences on a 1.5 [place] magnet. FINDINGS: No restricted diffusion. T2 shine through is identified in the right frontal lobe cortex and in the right paraventricular white matter in areas of restricted diffusion on the prior exam. There is gyral swelling with enlargement and increased T2 signal involving the right frontal lobe, right parietal lobe and right temporal lobe gyri. No evidence of hemorrhage. Global cortical atrophy and extensive bilateral periventricular deep white matter hyperintensities in FLAIR and T2. The brainstem and cerebellum are normal. Intact vascular flow voids. Normal pituitary and optic chiasm. Normal sinuses. The orbits, and soft tissues are normal. Normal calvarium and skull base. IMPRESSION: Late subacute nonhemorrhagic infarcts predominantly involving the cortex of the right frontal and temporal lobes and to a lesser degree the right parietal lobe. Subacute nonhemorrhagic infarct of right parietal lobe white matter. No acute infarction no hemorrhage. Global cortical as the extensive chronic white matter microangiopathy.
[2017-01-01] MEDS: KEPPRA 1,000 MG/NS 0.75% 100ML 1,000 MG/100 ML BAG IV SCH (13:20)
--- NOTE | 2017-01-01 14:22 | Consultation ---
History of Present Illness Consult date: 01/01/17 History of present illness: patient seen and assessed he is still post ictal and confused the MRI only shows the old stroke nothing acute or recent.... saw rthe report on the MRI and thisd is normal progression post stroke not true bleed advise IV meds as ordered seizures have stopped at this time spoke to family Medications and Allergies Allergies Allergy/AdvReac Type Severity Reaction Status Date / Time No Known Allergies Allergy Verified 06/26/14 23:54 Home Medications Medication Instructions Recorded Confirmed Last Taken Type Acetaminophen [Acetaminophen TAB] 650 mg FEEDTUBE Q8H PRN 12/31/16 12/31/16 Unknown History Fludrocortisone [Florinef] 0.05 mg FEEDTUBE QAM 12/31/16 12/31/16 Unknown History Furosemide [Lasix] 20 mg FEEDTUBE ONCE 12/31/16 12/31/16 Unknown History Ipratropium/Albuterol Sulfate 1 neb IH Q4HR 12/31/16 12/31/16 Unknown History [DUONEB *Not for PRN Use*] LORazepam [Ativan INJ] 0.5 ml IM Q6H PRN 12/31/16 12/31/16 Unknown History LORazepam [Ativan] 0.5 mg FEEDTUBE Q6H PRN 12/31/16 12/31/16 Unknown History guaiFENesin ER [Mucinex ER] 600 mg FEEDTUBE Q12H PRN 12/31/16 12/31/16 Unknown History levETIRAcetam [Keppra TAB] 750 mg FEEDTUBE DAILY 12/31/16 12/31/16 Unknown History oxyCODONE /ACETAMINOPHEN [Percocet 1 tab FEEDTUBE Q6H PRN 12/31/16 12/31/16 Unknown History 5/325 mg] Active Meds: Active Medications Acetaminophen (Tylenol) 650 mg FEEDTUBE Q8H PRN PRN Reason: Non Cardiac Pain or Temp>100.5 Albuterol/Ipratropium (Duoneb *Not For Prn Use*) 1 ampul IH Q4HRT [facility] Last Admin: 01/01/17 10:50 Dose: 1 ampul Fludrocortisone Acetate (Florinef) 0.05 mg FEEDTUBE QAM [facility] Last Admin: 01/01/17 10:13 Dose: 0.05 mg Sodium Chloride (Nacl 0.45% 1000 Ml) 1,000 mls @ 75 mls/hr IV DIRECT [facility] Last Admin: 01/01/17 01:31 Dose: 75 mls/hr Piperacillin Sod/Tazobactam Sod (Zosyn/Ns 3.375gm/50ml) 3.375 gm in 50 mls @ 100 mls/hr IV Q8HR [facility] PRN Reason: Protocol Last Admin: 01/01/17 07:05 Dose: 100 mls/hr Levetiracetam (Keppra 1,000 Mg/Ns 0.75% 100ml) 1,000 mg in 100 mls @ 400 mls/ hr IV Q12H [facility] Last Admin: 01/01/17 13:20 Dose: 400 mls/hr Lorazepam (Ativan) 1 mg IV Q4H PRN PRN Reason: Seizures Last Admin: 01/01/17 13:24 Dose: 1 mg Lorazepam (Ativan) 0.5 mg FEEDTUBE Q6H PRN PRN Reason: Seizures Last Admin: 01/01/17 07:55 Dose: 0.5 mg Ondansetron HCl (Zofran) 4 mg IV Q8H PRN PRN Reason: N/V unrelieved by Reglan Physical Examination - Vital Signs Vital Signs: Vital Signs Resp 27 H 12/31/16 15:49 Results - Laboratory Findings CBC and BMP: 12/31/16 16:08 12/31/16 16:16 Abnormal Lab Findings: Abnormal Labs 12/31/16 12/31/16 12/31/16 16:08 16:16 16:16 Hgb 11.7 L Lymph % (Auto) 9.1 L Lymph # 0.9 L Seg Neutrophils % 85.9 H Seg Neutrophils # 8.9 H Potassium 3.5 L Creatinine 0.5 L Calcium 7.9 L AST 41 H Total Creatine Kinase 745 H Total Protein 6.0 L Albumin 2.2 L
[2017-01-01] MEDS: ASPIRIN PR SCH (16:06)
[2017-01-01] MEDS ORDERED: PROVENTIL IH PRN (21:20)
--- NOTE | 2017-01-01 23:36 | Consultation ---
HISTORY OF PRESENT ILLNESS: This is a 76-year-old black male that returns to [facility] on 01/01/2016. 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 He was having several seizures prior to admission according to the ED doctor ____. The patient had previously had a PEG tube placed. He had had a history of acute cystitis, aspiration pneumonia, sacral decubitus stage 4 and had been admitted here previously with a stroke. When he was admitted, he was not taking any seizure medication. He had received some lorazepam and subsequent to this continued to have seizure activity. Reviewing his laboratory, his glucose was 100, his sodium 139, his potassium 3.5, his creatinine 0.5. CPK was elevated at 745. Albumin was 2.2. A CT scan of the head was reviewed by me that showed periventricular atrophy, evidence of old right-sided frontal and thalamic deep white matter changes with ischemia, but no evidence of, to my review, any bleed or any other acute lesions. In the interval since admission, the patient has had an MRI scan of the brain, which shows similar findings. No edema and no mass effect, frontal area of infarction. The radiologist did comment as to some portion of this appeared to be hemorrhagic in reviewing this. Re-reviewing the CT scan, I do not see a hemorrhagic component. He actually has a very large amount of white matter hypodensity bilaterally and the patient has evidence of rather marked amount of generalized atrophy. PHYSICAL EXAMINATION: VITAL SIGNS: His vital signs reveal blood pressure to be 186/56, respirations are 16, pulse rate is 76. NEUROLOGIC: Cranial nerves II through XII are intact. Neck is supple. Ocular movements are full. He does have slight diminished movement of the left arm, not speaking, apparently this is baseline status per his daughter who is in the room present, I do not know there is any further seizure activity. I reviewed over his current medications and he is to be receiving fosphenytoin IV and levetiracetam 100 mg b.i.d. and certainly these doses seem adequate for control of seizures, both Dilantin and Keppra should be adequate. We would recommend getting an EEG. I do not think we need to further evaluate the area of infarct in his right hemisphere. This has been adequately imaged on both the CT and MRI. I spoke with the daughter, recommend getting an EEG. JOB# [id number] RADHA/RADHA
[2017-01-02] MEDS: KEPPRA 1,000 MG/NS 0.75% 100ML 1,000 MG/100 ML BAG IV SCH (01:29)
[2017-01-02] MEDS: DUONEB *Not for PRN Use IH SCH ×4 (01:46→20:25)
[2017-01-02 05:39] LABS: Basophils % (Auto) 0.6 % (0.0-1.8); Hematocrit 31.1 % (35.5-45.6); Hemoglobin 10.3 gm/dl (11.8-15.2); Mean Corpuscular HGB Conc 33 % (32-34); Mean Corpuscular Hemoglobin 30 pg (28-32); Mean Corpuscular Volume 91 fl (84-94); Platelet Count 470 K/mm3 (140-440); Red Blood Count 3.41 M/mm3 (3.65-5.03); Red Cell Distribution Width 14.3 % (13.2-15.2); White Blood Count 7.1 K/mm3 (4.5-11.0)
[2017-01-02] MEDS: ZOSYN/NS 3.375GM/50ML 3.375 GM/50 ML BAG IV SCH ×3 (05:50→21:46)
[2017-01-02 06:03] LABS: Anion Gap 16 mmol/L; BUN/Creatinine Ratio 18; Blood Urea Nitrogen 11 mg/dL (9-20); Calcium 7.9 mg/dL (8.4-10.2); Carbon Dioxide 27 mmol/L (22-30); Chloride 103.1 mmol/L (98-107); Glucose 78 mg/dL (75-100); Potassium 4.4 mmol/L (3.6-5.0); Sodium 142 mmol/L (137-145)
[2017-01-02] MEDS ORDERED: SIMPLE SYRUP FEEDTUBE PRN ×2 (11:09)
[2017-01-02] MEDS ORDERED: PANCREAZE DR 10,500 UNIT FEEDTUBE PRN (11:09)
[2017-01-02] MEDS ORDERED: SODIUM BICARBONATE FEEDTUBE PRN (11:09)
[2017-01-02] MEDS: ASPIRIN PR SCH (11:35)
[2017-01-02] MEDS: FLORINEF FEEDTUBE SCH (11:39)
[2017-01-02] MEDS: NACL 0.45% 1000 ML 1,000 ML IV SCH (11:39)
[2017-01-02] MEDS: KEPPRA 1,000 MG in NACL 0.9% 100 ML IV SCH (13:54)
--- NOTE | 2017-01-02 15:02 | Progress Note ---
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 Hospitalist Physical - Physical exam Narrative exam: Not in cardiopulmonary distress. The patient is emaciated. Vital signs as documented. Head exam is unremarkable. No scleral icterus . Neck is without jugular venous distension, thyromegaly, or carotid bruits. Lungs are clear to auscultation. Cardiac exam reveals regular rate and Rhythm. First and second heart sounds normal. No murmurs, rubs or gallops. Abdominal exam reveals normal bowel sounds, no masses, no organomegaly and no aortic enlargement. Extremities contracted. Sacral decubitus ulcer. 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 - Constitutional Vitals: Temp Pulse Resp BP Pulse Ox 98.7 F 89 18 105/43 98 01/02/17 08:55 01/02/17 14:22 01/02/17 14:22 01/02/17 08:55 01/02/17 09:53 General appearance: Present: mild distress, well-nourished Results - Labs CBC & Chem 7: 01/02/17 04:47 01/02/17 04:47 Labs: Laboratory Last Values WBC 7.1 K/mm3 (4.5-11.0) 01/02/17 04:47 RBC 3.41 M/mm3 (3.65-5.03) L 01/02/17 04:47 Hgb 10.3 gm/dl (11.8-15.2) L 01/02/17 04:47 Hct 31.1 % (35.5-45.6) L 01/02/17 04:47 MCV 91 fl (84-94) 01/02/17 04:47 MCH 30 pg (28-32) 01/02/17 04:47 MCHC 33 % (32-34) 01/02/17 04:47 RDW 14.3 % (13.2-15.2) 01/02/17 04:47 Plt Count 470 K/mm3 (140-440) H 01/02/17 04:47 Lymph % (Auto) 10.8 % (13.4-35.0) L 01/02/17 04:47 [place] % (Auto) 4.3 % (0.0-7.3) 01/02/17 04:47 Eos % (Auto) 2.0 % (0.0-4.3) 01/02/17 04:47 Baso % (Auto) 0.6 % (0.0-1.8) 01/02/17 04:47 Lymph # 0.8 K/mm3 (1.2-5.4) L 01/02/17 04:47 [place] # 0.3 K/mm3 (0.0-0.8) 01/02/17 04:47 Eos # 0.1 K/mm3 (0.0-0.4) 01/02/17 04:47 Baso # 0.0 K/mm3 (0.0-0.1) 01/02/17 04:47 Seg Neutrophils % 82.3 % (40.0-70.0) H 01/02/17 04:47 Seg Neutrophils # 5.9 K/mm3 (1.8-7.7) 01/02/17 04:47 VBG pH 7.366 (7.320-7.420) 12/31/16 16:15 Sodium 142 mmol/L (137-145) 01/02/17 04:47 Potassium 4.4 mmol/L (3.6-5.0) D 01/02/17 04:47 Chloride 103.1 mmol/L (98-107) 01/02/17 04:47 Carbon Dioxide 27 mmol/L (22-30) 01/02/17 04:47 Anion Gap 16 mmol/L 01/02/17 04:47 BUN 11 mg/dL (9-20) 01/02/17 04:47 Creatinine 0.6 mg/dL (0.8-1.5) L 01/02/17 04:47 Estimated GFR > 60 ml/min 01/02/17 04:47 BUN/Creatinine Ratio 18 % 01/02/17 04:47 Glucose 78 mg/dL (75-100) 01/02/17 04:47 POC Glucose 75 (70-105) 01/02/17 14:52 Lactic Acid 1.60 mmol/L (0.7-2.0) 12/31/16 16:08 Calcium 7.9 mg/dL (8.4-10.2) L 01/02/17 04:47 Magnesium 2.10 mg/dL (1.7-2.3) 12/31/16 16:16 Total Bilirubin 0.30 mg/dL (0.1-1.2) 12/31/16 16:16 Direct Bilirubin < 0.2 mg/dL (0-0.2) 12/31/16 16:16 AST 41 units/L (5-40) H 12/31/16 16:16 ALT 18 units/L (7-56) 12/31/16 16:16 Alkaline Phosphatase 57 units/L (35-129) 12/31/16 16:16 Total Creatine Kinase 745 units/L (55-170) H 12/31/16 16:16 Total Protein 6.0 g/dL (6.3-8.2) L 12/31/16 16:16 Albumin 2.2 g/dL (3.9-5) L 12/31/16 16:16 Albumin/Globulin Ratio 0.6 % 12/31/16 16:16 Urine Color Yellow (Yellow) 01/01/17 06:21 Urine Turbidity Clear (Clear) 01/01/17 06:21 Urine pH 7.0 (5.0-7.0) 01/01/17 06:21 Ur Specific [place] 1.021 (1.003-1.030) 01/01/17 06:21 Urine Protein <15 mg/dl mg/dL (Negative) 01/01/17 06:21 Urine Glucose (UA) Neg mg/dL (Negative) 01/01/17 06:21 Urine Ketones 20 mg/dL (Negative) 01/01/17 06:21 Urine Blood Sm (Negative) 01/01/17 06:21 Urine Nitrite Neg (Negative) 01/01/17 06:21 Urine Bilirubin Neg (Negative) 01/01/17 06:21 Urine Urobilinogen < 2.0 mg/dL (<2.0) 01/01/17 06:21 Ur Leukocyte Esterase Neg (Negative) 01/01/17 06:21 Urine WBC (Auto) 4.0 /HPF (0.0-6.0) 01/01/17 06:21 Urine RBC (Auto) 15.0 /HPF (0.0-6.0) 01/01/17 06:21 U Epithel Cells (Auto) < 1.0 /HPF (0-13.0) 01/01/17 06:21 Urine Mucus Few /HPF 12/31/16 18:04
[2017-01-03] MEDS: KEPPRA 1,000 MG in NACL 0.9% 100 ML IV SCH ×2 (01:06→13:21)
[2017-01-03] MEDS: DUONEB *Not for PRN Use IH SCH ×4 (02:31→20:59)
[2017-01-03] MEDS: NACL 0.45% 1000 ML 1,000 ML IV SCH ×2 (04:19→19:38)
[2017-01-03] MEDS: ZOSYN/NS 3.375GM/50ML 3.375 GM/50 ML BAG IV SCH ×2 (05:31→14:10)
[2017-01-03 06:12] LABS: Anion Gap 14 mmol/L; BUN/Creatinine Ratio 18; Blood Urea Nitrogen 9 mg/dL (9-20); Calcium 7.6 mg/dL (8.4-10.2); Carbon Dioxide 27 mmol/L (22-30); Chloride 99.4 mmol/L (98-107); Glucose 209 mg/dL (75-100); Potassium 4.3 mmol/L (3.6-5.0); Sodium 136 mmol/L (137-145)
[2017-01-03] MEDS: FLORINEF FEEDTUBE SCH (09:41)
[2017-01-03] MEDS: ASPIRIN PR SCH (09:45)
--- NOTE | 2017-01-03 15:57 | Progress Note ---
Assessment and Plan Assessment and plan: Intractable seizure Subacute infarction [place]'s disease Functional quadriplegia Sacral decubitus ulcer -Patient is on IV Keppra and lorazepam - Patient is on aspirin and statin - Continue appropriate home medications - Neurology consult appreciated - MRI showed subacute stroke DVT prophylaxis - Heparin Disposition -Possible discharge tomorrow. History Interval history: Patient seen and evaluated at the bedside, no episodes of seizures. Hospitalist Physical - Physical exam Narrative exam: Not in cardiopulmonary distress. The patient is emaciated. Vital signs as documented. Head exam is unremarkable. No scleral icterus . Neck is without jugular venous distension, thyromegaly, or carotid bruits. Lungs are clear to auscultation. Cardiac exam reveals regular rate and Rhythm. First and second heart sounds normal. No murmurs, rubs or gallops. Abdominal exam reveals normal bowel sounds, no masses, no organomegaly and no aortic enlargement. Extremities contracted. Sacral decubitus ulcer. 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 - Constitutional Vitals: Temp Pulse Resp BP Pulse Ox 97.4 F L 86 18 128/57 100 01/03/17 04:09 01/03/17 15:49 01/03/17 15:49 01/03/17 04:09 01/03/17 08:23 General appearance: Present: mild distress, well-nourished Results - Labs CBC & Chem 7: 01/02/17 04:47 01/03/17 05:16 Labs: Laboratory Last Values WBC 7.1 K/mm3 (4.5-11.0) 01/02/17 04:47 RBC 3.41 M/mm3 (3.65-5.03) L 01/02/17 04:47 Hgb 10.3 gm/dl (11.8-15.2) L 01/02/17 04:47 Hct 31.1 % (35.5-45.6) L 01/02/17 04:47 MCV 91 fl (84-94) 01/02/17 04:47 MCH 30 pg (28-32) 01/02/17 04:47 MCHC 33 % (32-34) 01/02/17 04:47 RDW 14.3 % (13.2-15.2) 01/02/17 04:47 Plt Count 470 K/mm3 (140-440) H 01/02/17 04:47 Lymph % (Auto) 10.8 % (13.4-35.0) L 01/02/17 04:47 [place] % (Auto) 4.3 % (0.0-7.3) 01/02/17 04:47 Eos % (Auto) 2.0 % (0.0-4.3) 01/02/17 04:47 Baso % (Auto) 0.6 % (0.0-1.8) 01/02/17 04:47 Lymph # 0.8 K/mm3 (1.2-5.4) L 01/02/17 04:47 [place] # 0.3 K/mm3 (0.0-0.8) 01/02/17 04:47 Eos # 0.1 K/mm3 (0.0-0.4) 01/02/17 04:47 Baso # 0.0 K/mm3 (0.0-0.1) 01/02/17 04:47 Seg Neutrophils % 82.3 % (40.0-70.0) H 01/02/17 04:47 Seg Neutrophils # 5.9 K/mm3 (1.8-7.7) 01/02/17 04:47 VBG pH 7.366 (7.320-7.420) 12/31/16 16:15 Sodium 136 mmol/L (137-145) L 01/03/17 05:16 Potassium 4.3 mmol/L (3.6-5.0) 01/03/17 05:16 Chloride 99.4 mmol/L (98-107) 01/03/17 05:16 Carbon Dioxide 27 mmol/L (22-30) 01/03/17 05:16 Anion Gap 14 mmol/L 01/03/17 05:16 BUN 9 mg/dL (9-20) 01/03/17 05:16 Creatinine 0.5 mg/dL (0.8-1.5) L 01/03/17 05:16 Estimated GFR > 60 ml/min 01/03/17 05:16 BUN/Creatinine Ratio 18 % 01/03/17 05:16 Glucose 209 mg/dL (75-100) H 01/03/17 05:16 POC Glucose 216 (70-105) H 01/02/17 23:59 Hemoglobin A1c 5.4 % (4-6) 01/03/17 09:22 Lactic Acid 1.60 mmol/L (0.7-2.0) 12/31/16 16:08 Calcium 7.6 mg/dL (8.4-10.2) L 01/03/17 05:16 Magnesium 2.10 mg/dL (1.7-2.3) 12/31/16 16:16 Total Bilirubin 0.30 mg/dL (0.1-1.2) 12/31/16 16:16 Direct Bilirubin < 0.2 mg/dL (0-0.2) 12/31/16 16:16 AST 41 units/L (5-40) H 12/31/16 16:16 ALT 18 units/L (7-56) 12/31/16 16:16 Alkaline Phosphatase 57 units/L (35-129) 12/31/16 16:16 Total Creatine Kinase 745 units/L (55-170) H 12/31/16 16:16 Total Protein 6.0 g/dL (6.3-8.2) L 12/31/16 16:16 Albumin 2.2 g/dL (3.9-5) L 12/31/16 16:16 Albumin/Globulin Ratio 0.6 % 12/31/16 16:16 Urine Color Yellow (Yellow) 01/01/17 06:21 Urine Turbidity Clear (Clear) 01/01/17 06:21 Urine pH 7.0 (5.0-7.0) 01/01/17 06:21 Ur Specific [place] 1.021 (1.003-1.030) 01/01/17 06:21 Urine Protein <15 mg/dl mg/dL (Negative) 01/01/17 06:21 Urine Glucose (UA) Neg mg/dL (Negative) 01/01/17 06:21 Urine Ketones 20 mg/dL (Negative) 01/01/17 06:21 Urine Blood Sm (Negative) 01/01/17 06:21 Urine Nitrite Neg (Negative) 01/01/17 06:21 Urine Bilirubin Neg (Negative) 01/01/17 06:21 Urine Urobilinogen < 2.0 mg/dL (<2.0) 01/01/17 06:21 Ur Leukocyte Esterase Neg (Negative) 01/01/17 06:21 Urine WBC (Auto) 4.0 /HPF (0.0-6.0) 01/01/17 06:21 Urine RBC (Auto) 15.0 /HPF (0.0-6.0) 01/01/17 06:21 U Epithel Cells (Auto) < 1.0 /HPF (0-13.0) 01/01/17 06:21 Urine Mucus Few /HPF 12/31/16 18:04
[2017-01-04] MEDS ORDERED: KEPPRA 1,000 MG/NS 0.75% 100ML 1,000 MG/100 ML BAG IV SCH (01:00)
[2017-01-04] MEDS: DUONEB *Not for PRN Use IH SCH ×4 (06:18→20:51)
[2017-01-04] MEDS: NACL 0.45% 1000 ML 1,000 ML IV SCH ×2 (09:44→21:39)
[2017-01-04] MEDS: FLORINEF FEEDTUBE SCH (10:05)
[2017-01-04] MEDS: ASPIRIN PR SCH (10:06)
[2017-01-04] MEDS: LEVAQUIN 750MG/150ML 750 MG/150 ML BAG IV SCH (10:11)
--- NOTE | 2017-01-04 14:56 | Progress Note ---
Assessment and Plan Assessment and plan: Intractable seizure Subacute infarction Burke's disease Functional quadriplegia Sacral decubitus ulcer -Patient is on IV Keppra and lorazepam, and IV antibiotics - Patient is on aspirin and statin - Continue appropriate home medications - Neurology consult appreciated - MRI showed subacute stroke DVT prophylaxis - Heparin Disposition -Continue inpatient care History Interval history: Patient seen and evaluated at the bedside, no episodes of seizures. Hospitalist Physical - Physical exam Narrative exam: Not in cardiopulmonary distress. The patient is emaciated. Vital signs as documented. Head exam is unremarkable. No scleral icterus . Neck is without jugular venous distension, thyromegaly, or carotid bruits. Lungs are clear to auscultation. Cardiac exam reveals regular rate and Rhythm. First and second heart sounds normal. No murmurs, rubs or gallops. Abdominal exam reveals normal bowel sounds, no masses, no organomegaly and no aortic enlargement. Extremities contracted. Sacral decubitus ulcer. 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 - Constitutional Vitals: Temp Pulse Resp BP Pulse Ox 97.5 F L 98 H 18 123/66 100 01/04/17 05:17 01/04/17 14:26 01/04/17 14:26 01/04/17 05:17 01/04/17 08:27 General appearance: Present: mild distress, well-nourished Results - Labs CBC & Chem 7: 01/02/17 04:47 01/03/17 05:16 Labs: Laboratory Last Values WBC 7.1 K/mm3 (4.5-11.0) 01/02/17 04:47 RBC 3.41 M/mm3 (3.65-5.03) L 01/02/17 04:47 Hgb 10.3 gm/dl (11.8-15.2) L 01/02/17 04:47 Hct 31.1 % (35.5-45.6) L 01/02/17 04:47 MCV 91 fl (84-94) 01/02/17 04:47 MCH 30 pg (28-32) 01/02/17 04:47 MCHC 33 % (32-34) 01/02/17 04:47 RDW 14.3 % (13.2-15.2) 01/02/17 04:47 Plt Count 470 K/mm3 (140-440) H 01/02/17 04:47 Lymph % (Auto) 10.8 % (13.4-35.0) L 01/02/17 04:47 [place] % (Auto) 4.3 % (0.0-7.3) 01/02/17 04:47 Eos % (Auto) 2.0 % (0.0-4.3) 01/02/17 04:47 Baso % (Auto) 0.6 % (0.0-1.8) 01/02/17 04:47 Lymph # 0.8 K/mm3 (1.2-5.4) L 01/02/17 04:47 [place] # 0.3 K/mm3 (0.0-0.8) 01/02/17 04:47 Eos # 0.1 K/mm3 (0.0-0.4) 01/02/17 04:47 Baso # 0.0 K/mm3 (0.0-0.1) 01/02/17 04:47 Seg Neutrophils % 82.3 % (40.0-70.0) H 01/02/17 04:47 Seg Neutrophils # 5.9 K/mm3 (1.8-7.7) 01/02/17 04:47 VBG pH 7.366 (7.320-7.420) 12/31/16 16:15 Sodium 136 mmol/L (137-145) L 01/03/17 05:16 Potassium 4.3 mmol/L (3.6-5.0) 01/03/17 05:16 Chloride 99.4 mmol/L (98-107) 01/03/17 05:16 Carbon Dioxide 27 mmol/L (22-30) 01/03/17 05:16 Anion Gap 14 mmol/L 01/03/17 05:16 BUN 9 mg/dL (9-20) 01/03/17 05:16 Creatinine 0.5 mg/dL (0.8-1.5) L 01/03/17 05:16 Estimated GFR > 60 ml/min 01/03/17 05:16 BUN/Creatinine Ratio 18 % 01/03/17 05:16 Glucose 209 mg/dL (75-100) H 01/03/17 05:16 POC Glucose 165 (70-105) H 01/04/17 06:53 Hemoglobin A1c 5.4 % (4-6) 01/03/17 09:22 Lactic Acid 1.60 mmol/L (0.7-2.0) 12/31/16 16:08 Calcium 7.6 mg/dL (8.4-10.2) L 01/03/17 05:16 Magnesium 2.10 mg/dL (1.7-2.3) 12/31/16 16:16 Total Bilirubin 0.30 mg/dL (0.1-1.2) 12/31/16 16:16 Direct Bilirubin < 0.2 mg/dL (0-0.2) 12/31/16 16:16 AST 41 units/L (5-40) H 12/31/16 16:16 ALT 18 units/L (7-56) 12/31/16 16:16 Alkaline Phosphatase 57 units/L (35-129) 12/31/16 16:16 Total Creatine Kinase 745 units/L (55-170) H 12/31/16 16:16 Total Protein 6.0 g/dL (6.3-8.2) L 12/31/16 16:16 Albumin 2.2 g/dL (3.9-5) L 12/31/16 16:16 Albumin/Globulin Ratio 0.6 % 12/31/16 16:16 Urine Color Yellow (Yellow) 01/01/17 06:21 Urine Turbidity Clear (Clear) 01/01/17 06:21 Urine pH 7.0 (5.0-7.0) 01/01/17 06:21 Ur Specific [place] 1.021 (1.003-1.030) 01/01/17 06:21 Urine Protein <15 mg/dl mg/dL (Negative) 01/01/17 06:21 Urine Glucose (UA) Neg mg/dL (Negative) 01/01/17 06:21 Urine Ketones 20 mg/dL (Negative) 01/01/17 06:21 Urine Blood Sm (Negative) 01/01/17 06:21 Urine Nitrite Neg (Negative) 01/01/17 06:21 Urine Bilirubin Neg (Negative) 01/01/17 06:21 Urine Urobilinogen < 2.0 mg/dL (<2.0) 01/01/17 06:21 Ur Leukocyte Esterase Neg (Negative) 01/01/17 06:21 Urine WBC (Auto) 4.0 /HPF (0.0-6.0) 01/01/17 06:21 Urine RBC (Auto) 15.0 /HPF (0.0-6.0) 01/01/17 06:21 U Epithel Cells (Auto) < 1.0 /HPF (0-13.0) 01/01/17 06:21 Urine Mucus Few /HPF 12/31/16 18:04
[2017-01-04] MEDS: KEPPRA PO SCH (21:39)
[2017-01-05] MEDS: DUONEB *Not for PRN Use IH SCH ×5 (03:15→22:52)
[2017-01-05] MEDS: KEPPRA PO SCH ×2 (09:09→21:33)
[2017-01-05] MEDS: FLORINEF FEEDTUBE SCH (09:09)
[2017-01-05] MEDS: ASPIRIN PR SCH (09:10)
[2017-01-05] MEDS: LEVAQUIN 750MG/150ML 750 MG/150 ML BAG IV SCH (09:10)
[2017-01-05] MEDS: NACL 0.45% 1000 ML 1,000 ML IV SCH (13:20)
--- NOTE | 2017-01-05 16:43 | Progress Note ---
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 History Interval history: Patient seen and evaluated at the bedside, no episodes of seizures. patient was talking to me. Hospitalist Physical - Physical exam Narrative exam: Not in cardiopulmonary distress. The patient is emaciated. Vital signs as documented. Head exam is unremarkable. No scleral icterus . Neck is without jugular venous distension, thyromegaly, or carotid bruits. Lungs are clear to auscultation. Cardiac exam reveals regular rate and Rhythm. First and second heart sounds normal. No murmurs, rubs or gallops. Abdominal exam reveals normal bowel sounds, no masses, no organomegaly and no aortic enlargement. Extremities contracted. Sacral decubitus ulcer. 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 - Constitutional Vitals: Temp Pulse Resp BP Pulse Ox 98.3 F 93 H 16 113/58 100 01/05/17 15:53 01/05/17 14:22 01/05/17 15:53 01/05/17 15:56 01/05/17 13:16 General appearance: Present: mild distress, well-nourished Results - Labs CBC & Chem 7: 01/02/17 04:47 01/03/17 05:16 Labs: Laboratory Last Values WBC 7.1 K/mm3 (4.5-11.0) 01/02/17 04:47 RBC 3.41 M/mm3 (3.65-5.03) L 01/02/17 04:47 Hgb 10.3 gm/dl (11.8-15.2) L 01/02/17 04:47 Hct 31.1 % (35.5-45.6) L 01/02/17 04:47 MCV 91 fl (84-94) 01/02/17 04:47 MCH 30 pg (28-32) 01/02/17 04:47 MCHC 33 % (32-34) 01/02/17 04:47 RDW 14.3 % (13.2-15.2) 01/02/17 04:47 Plt Count 470 K/mm3 (140-440) H 01/02/17 04:47 Lymph % (Auto) 10.8 % (13.4-35.0) L 01/02/17 04:47 [place] % (Auto) 4.3 % (0.0-7.3) 01/02/17 04:47 Eos % (Auto) 2.0 % (0.0-4.3) 01/02/17 04:47 Baso % (Auto) 0.6 % (0.0-1.8) 01/02/17 04:47 Lymph # 0.8 K/mm3 (1.2-5.4) L 01/02/17 04:47 [place] # 0.3 K/mm3 (0.0-0.8) 01/02/17 04:47 Eos # 0.1 K/mm3 (0.0-0.4) 01/02/17 04:47 Baso # 0.0 K/mm3 (0.0-0.1) 01/02/17 04:47 Seg Neutrophils % 82.3 % (40.0-70.0) H 01/02/17 04:47 Seg Neutrophils # 5.9 K/mm3 (1.8-7.7) 01/02/17 04:47 VBG pH 7.366 (7.320-7.420) 12/31/16 16:15 Sodium 136 mmol/L (137-145) L 01/03/17 05:16 Potassium 4.3 mmol/L (3.6-5.0) 01/03/17 05:16 Chloride 99.4 mmol/L (98-107) 01/03/17 05:16 Carbon Dioxide 27 mmol/L (22-30) 01/03/17 05:16 Anion Gap 14 mmol/L 01/03/17 05:16 BUN 9 mg/dL (9-20) 01/03/17 05:16 Creatinine 0.5 mg/dL (0.8-1.5) L 01/03/17 05:16 Estimated GFR > 60 ml/min 01/03/17 05:16 BUN/Creatinine Ratio 18 % 01/03/17 05:16 Glucose 209 mg/dL (75-100) H 01/03/17 05:16 POC Glucose 107 (70-105) H 01/05/17 12:42 Hemoglobin A1c 5.4 % (4-6) 01/03/17 09:22 Lactic Acid 1.60 mmol/L (0.7-2.0) 12/31/16 16:08 Calcium 7.6 mg/dL (8.4-10.2) L 01/03/17 05:16 Magnesium 2.10 mg/dL (1.7-2.3) 12/31/16 16:16 Total Bilirubin 0.30 mg/dL (0.1-1.2) 12/31/16 16:16 Direct Bilirubin < 0.2 mg/dL (0-0.2) 12/31/16 16:16 AST 41 units/L (5-40) H 12/31/16 16:16 ALT 18 units/L (7-56) 12/31/16 16:16 Alkaline Phosphatase 57 units/L (35-129) 12/31/16 16:16 Total Creatine Kinase 745 units/L (55-170) H 12/31/16 16:16 Total Protein 6.0 g/dL (6.3-8.2) L 12/31/16 16:16 Albumin 2.2 g/dL (3.9-5) L 12/31/16 16:16 Albumin/Globulin Ratio 0.6 % 12/31/16 16:16 Urine Color Yellow (Yellow) 01/01/17 06:21 Urine Turbidity Clear (Clear) 01/01/17 06:21 Urine pH 7.0 (5.0-7.0) 01/01/17 06:21 Ur Specific [place] 1.021 (1.003-1.030) 01/01/17 06:21 Urine Protein <15 mg/dl mg/dL (Negative) 01/01/17 06:21 Urine Glucose (UA) Neg mg/dL (Negative) 01/01/17 06:21 Urine Ketones 20 mg/dL (Negative) 01/01/17 06:21 Urine Blood Sm (Negative) 01/01/17 06:21 Urine Nitrite Neg (Negative) 01/01/17 06:21 Urine Bilirubin Neg (Negative) 01/01/17 06:21 Urine Urobilinogen < 2.0 mg/dL (<2.0) 01/01/17 06:21 Ur Leukocyte Esterase Neg (Negative) 01/01/17 06:21 Urine WBC (Auto) 4.0 /HPF (0.0-6.0) 01/01/17 06:21 Urine RBC (Auto) 15.0 /HPF (0.0-6.0) 01/01/17 06:21 U Epithel Cells (Auto) < 1.0 /HPF (0-13.0) 01/01/17 06:21 Urine Mucus Few /HPF 12/31/16 18:04
[2017-01-06] MEDS: NACL 0.45% 1000 ML 1,000 ML IV SCH ×2 (03:50→19:28)
[2017-01-06 06:29] LABS: Basophils % (Auto) 0.6 % (0.0-1.8); Eosinophils % (Auto) 1.4 % (0.0-4.3); Hematocrit 32.5 % (35.5-45.6); Hemoglobin 11.2 gm/dl (11.8-15.2); Mean Corpuscular HGB Conc 34 % (32-34); Mean Corpuscular Hemoglobin 32 pg (28-32); Mean Corpuscular Volume 92 fl (84-94); Platelet Count 638 K/mm3 (140-440); Red Blood Count 3.55 M/mm3 (3.65-5.03); Red Cell Distribution Width 14.3 % (13.2-15.2); White Blood Count 7.2 K/mm3 (4.5-11.0)
[2017-01-06 06:40] LABS: Anion Gap 14 mmol/L; BUN/Creatinine Ratio 24; Blood Urea Nitrogen 12 mg/dL (9-20); Calcium 8.3 mg/dL (8.4-10.2); Carbon Dioxide 27 mmol/L (22-30); Chloride 100.3 mmol/L (98-107); Glucose 125 mg/dL (75-100); Potassium 4.9 mmol/L (3.6-5.0); Sodium 136 mmol/L (137-145)
[2017-01-06] MEDS: DUONEB *Not for PRN Use IH SCH ×3 (07:39→19:46)
[2017-01-06] MEDS: KEPPRA PO SCH ×2 (09:31→21:58)
[2017-01-06] MEDS: FLORINEF FEEDTUBE SCH (09:31)
[2017-01-06] MEDS: ASPIRIN PR SCH (09:31)
[2017-01-06] MEDS: LEVAQUIN 750MG/150ML 750 MG/150 ML BAG IV SCH (09:32)
--- NOTE | 2017-01-06 13:12 | Progress Note ---
Assessment and Plan Assessment and plan: Intractable seizure Subacute infarction [place]ann[place]'s disease Functional quadriplegia Sacral decubitus ulcer -Patient is on IV Keppra and lorazepam, and IV antibiotics - Patient is on aspirin and statin - Continue appropriate home medications - Neurology consult appreciated - MRI showed subacute stroke DVT prophylaxis - Heparin Disposition - patient is stable for discharge,pending for placement to SNF. History Interval history: Patient seen and evaluated at the bedside, no episodes of seizures. patient was talking to me. Hospitalist Physical - Physical exam Narrative exam: Not in cardiopulmonary distress. The patient is emaciated. Vital signs as documented. Head exam is unremarkable. No scleral icterus . Neck is without jugular venous distension, thyromegaly, or carotid bruits. Lungs are clear to auscultation. Cardiac exam reveals regular rate and Rhythm. First and second heart sounds normal. No murmurs, rubs or gallops. Abdominal exam reveals normal bowel sounds, no masses, no organomegaly and no aortic enlargement. Extremities contracted. Sacral decubitus ulcer. 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 - Constitutional Vitals: Temp Pulse Resp BP Pulse Ox 97.5 F L 101 H 16 105/53 99 01/06/17 05:00 01/06/17 07:52 01/06/17 07:48 01/06/17 07:52 01/06/17 07:52 General appearance: Present: mild distress, well-nourished Results - Labs CBC & Chem 7: 01/06/17 05:37 01/06/17 05:37 Labs: Laboratory Last Values WBC 7.2 K/mm3 (4.5-11.0) 01/06/17 05:37 RBC 3.55 M/mm3 (3.65-5.03) L 01/06/17 05:37 Hgb 11.2 gm/dl (11.8-15.2) L 01/06/17 05:37 Hct 32.5 % (35.5-45.6) L 01/06/17 05:37 MCV 92 fl (84-94) 01/06/17 05:37 MCH 32 pg (28-32) 01/06/17 05:37 MCHC 34 % (32-34) 01/06/17 05:37 RDW 14.3 % (13.2-15.2) 01/06/17 05:37 Plt Count 638 K/mm3 (140-440) H 01/06/17 05:37 Lymph % (Auto) 15.8 % (13.4-35.0) 01/06/17 05:37 [place] % (Auto) 7.7 % (0.0-7.3) H 01/06/17 05:37 Eos % (Auto) 1.4 % (0.0-4.3) 01/06/17 05:37 Baso % (Auto) 0.6 % (0.0-1.8) 01/06/17 05:37 Lymph # 1.1 K/mm3 (1.2-5.4) L 01/06/17 05:37 [place] # 0.6 K/mm3 (0.0-0.8) 01/06/17 05:37 Eos # 0.1 K/mm3 (0.0-0.4) 01/06/17 05:37 Baso # 0.0 K/mm3 (0.0-0.1) 01/06/17 05:37 Seg Neutrophils % 74.5 % (40.0-70.0) H 01/06/17 05:37 Seg Neutrophils # 5.3 K/mm3 (1.8-7.7) 01/06/17 05:37 VBG pH 7.366 (7.320-7.420) 12/31/16 16:15 Sodium 136 mmol/L (137-145) L 01/06/17 05:37 Potassium 4.9 mmol/L (3.6-5.0) 01/06/17 05:37 Chloride 100.3 mmol/L (98-107) 01/06/17 05:37 Carbon Dioxide 27 mmol/L (22-30) 01/06/17 05:37 Anion Gap 14 mmol/L 01/06/17 05:37 BUN 12 mg/dL (9-20) 01/06/17 05:37 Creatinine 0.5 mg/dL (0.8-1.5) L 01/06/17 05:37 Estimated GFR > 60 ml/min 01/06/17 05:37 BUN/Creatinine Ratio 24 % 01/06/17 05:37 Glucose 125 mg/dL (75-100) H 01/06/17 05:37 POC Glucose 104 (70-105) 01/06/17 11:43 Hemoglobin A1c 5.4 % (4-6) 01/03/17 09:22 Lactic Acid 1.60 mmol/L (0.7-2.0) 12/31/16 16:08 Calcium 8.3 mg/dL (8.4-10.2) L 01/06/17 05:37 Magnesium 2.10 mg/dL (1.7-2.3) 12/31/16 16:16 Total Bilirubin 0.30 mg/dL (0.1-1.2) 12/31/16 16:16 Direct Bilirubin < 0.2 mg/dL (0-0.2) 12/31/16 16:16 AST 41 units/L (5-40) H 12/31/16 16:16 ALT 18 units/L (7-56) 12/31/16 16:16 Alkaline Phosphatase 57 units/L (35-129) 12/31/16 16:16 Total Creatine Kinase 745 units/L (55-170) H 12/31/16 16:16 Total Protein 6.0 g/dL (6.3-8.2) L 12/31/16 16:16 Albumin 2.2 g/dL (3.9-5) L 12/31/16 16:16 Albumin/Globulin Ratio 0.6 % 12/31/16 16:16 Urine Color Yellow (Yellow) 01/01/17 06:21 Urine Turbidity Clear (Clear) 01/01/17 06:21 Urine pH 7.0 (5.0-7.0) 01/01/17 06:21 Ur Specific [place] 1.021 (1.003-1.030) 01/01/17 06:21 Urine Protein <15 mg/dl mg/dL (Negative) 01/01/17 06:21 Urine Glucose (UA) Neg mg/dL (Negative) 01/01/17 06:21 Urine Ketones 20 mg/dL (Negative) 01/01/17 06:21 Urine Blood Sm (Negative) 01/01/17 06:21 Urine Nitrite Neg (Negative) 01/01/17 06:21 Urine Bilirubin Neg (Negative) 01/01/17 06:21 Urine Urobilinogen < 2.0 mg/dL (<2.0) 01/01/17 06:21 Ur Leukocyte Esterase Neg (Negative) 01/01/17 06:21 Urine WBC (Auto) 4.0 /HPF (0.0-6.0) 01/01/17 06:21 Urine RBC (Auto) 15.0 /HPF (0.0-6.0) 01/01/17 06:21 U Epithel Cells (Auto) < 1.0 /HPF (0-13.0) 01/01/17 06:21 Urine Mucus Few /HPF 12/31/16 18:04
--- NOTE | 2017-01-06 20:10 | Progress Note ---
Assessment and Plan - Patient Problems (1) Recurrent seizures Current Visit: Yes Status: Acute Plan to address problem: Await neurology eval. no new issuesat this time. disposition as per you. (2) Altered mental status Current Visit: No Status: Acute Plan to address problem: This is due to the seizure., same as above. no seizure activity recent. Subjective Date of service: 01/06/17 Interval history: patient was seen earlier, resting in bed, no acute distress.labs reviewed. disposition as per you. Objective - Constitutional Vitals: Vital Signs - 12hr 01/06/17 01/06/17 01/06/17 09:55 10:00 14:13 Temperature 98.3 F Pulse Rate 98 H 109 H Pulse Rate [ 108 H Anterior Bilateral Throughout] Respiratory 36 H Rate Respiratory 20 Rate [Anterior Bilateral Throughout] Blood Pressure 127/72 O2 Sat by Pulse 100 Oximetry 01/06/17 01/06/17 01/06/17 14:40 16:26 19:48 Temperature 97.5 F L Pulse Rate 109 H Pulse Rate [ 102 H 107 H Anterior Bilateral Throughout] Respiratory 20 Rate Respiratory 18 16 Rate [Anterior Bilateral Throughout] Blood Pressure 126/67 O2 Sat by Pulse 100 Oximetry 01/06/17 01/06/17 19:50 20:02 Temperature Pulse Rate Pulse Rate [ 109 H Anterior Bilateral Throughout] Respiratory Rate Respiratory 16 Rate [Anterior Bilateral Throughout] Blood Pressure O2 Sat by Pulse 100 Oximetry General appearance: Present: no acute distress - EENT Eyes: PERRL, EOM intact ENT: hearing intact, clear oral mucosa Ears: bilateral: normal - Neck Neck: supple, normal ROM - Respiratory Respiratory effort: normal Respiratory: bilateral: CTA - Cardiovascular Rhythm: regular Heart Sounds: Present: S1 & S2. Absent: gallop, rub Extremities: pulses intact, No edema, normal color, Full ROM - Gastrointestinal General gastrointestinal: Present: soft, non-tender, non-distended, normal bowel sounds Rectal Exam: deferred - Genitourinary Male genitourinary: deferred - Integumentary Integumentary: clear, warm, dry - Musculoskeletal Musculoskeletal: 1, strength equal bilaterally - Neurologic Neurologic: moves all extremities - Psychiatric Psychiatric: appropriate mood/affect, memory intact - Labs CBC & Chem 7: 01/06/17 05:37 01/06/17 05:37 Labs: Abnormal lab results 01/05/17 01/06/17 01/06/17 Range/Units 23:32 05:37 05:37 RBC 3.55 L (3.65-5.03) M/mm3 Hgb 11.2 L (11.8-15.2) gm/dl Hct 32.5 L (35.5-45.6) % Plt Count 638 H (140-440) K/mm3 [place] % (Auto) 7.7 H (0.0-7.3) % Lymph # 1.1 L (1.2-5.4) K/mm3 Seg Neutrophils % 74.5 H (40.0-70.0) % Sodium 136 L (137-145) mmol/L Creatinine 0.5 L (0.8-1.5) mg/dL Glucose 125 H (75-100) mg/dL POC Glucose 153 H (70-105) Calcium 8.3 L (8.4-10.2) mg/dL 01/06/17 01/06/17 Range/Units 05:55 17:17 RBC (3.65-5.03) M/mm3 Hgb (11.8-15.2) gm/dl Hct (35.5-45.6) % Plt Count (140-440) K/mm3 [place] % (Auto) (0.0-7.3) % Lymph # (1.2-5.4) K/mm3 Seg Neutrophils % (40.0-70.0) % Sodium (137-145) mmol/L Creatinine (0.8-1.5) mg/dL Glucose (75-100) mg/dL POC Glucose 134 H 114 H (70-105) Calcium (8.4-10.2) mg/dL
[2017-01-07] MEDS: DUONEB *Not for PRN Use IH SCH ×3 (07:29→19:36)
[2017-01-07] MEDS: LEVAQUIN 750MG/150ML 750 MG/150 ML BAG IV SCH (09:48)
[2017-01-07] MEDS: NACL 0.45% 1000 ML 1,000 ML IV SCH (09:48)
[2017-01-07] MEDS: FLORINEF FEEDTUBE SCH (09:49)
[2017-01-07] MEDS: ASPIRIN PR SCH (09:49)
[2017-01-07] MEDS: KEPPRA PO SCH ×2 (09:50→22:35)
--- NOTE | 2017-01-07 11:06 | Discharge Summary ---
Providers - Providers Date of Admission: 12/31/16 20:14 Attending physician: PARUL MAN MD 12/31/16 17:36 Consult to Wound/ET Nurse [CONS] Stat Reason For Exam: wound eval 01/01/17 01:03 Consult to Physician [CONS] Routine Consulting Provider: JANENE BOSTON Reason For Exam: sz Notified:: secretary receptionist pl call 01/01/17 10:39 Consult to Physician [CONS] Routine Consulting Provider: JANENE BOSTON Reason For Exam: seizure, recurrent Place consult to:: Dr. Boston Notified:: Gisel GAVIN Phone number called:: Was contact made?: Yes If yes, spoke with:: Judy-Office Time called:: 10:46 01/01/17 17:11 Consult to Dietitian/Nutrition [CONS] Routine Physician Instructions: patient has j tube Reason For Exam: Reason for Consult: Write/Manage Tube Feeding 01/03/17 13:46 Physical Therapy Evaluation and Treat [CONS] Routine Comment: needs new precert back to SNF/skill level Reason For Exam: eval and treat 01/03/17 13:47 Occupational Therapy Evaluate and Treat [CONS] Routine Comment: needs new precert back to SNF/skill level Reason For Exam: eval & treat Primary care physician: CLEMENTINA FORD Hospitalization Reason for admission: [place], sepsis, Acute CVA Condition: Stable Disposition: DC-30 STILL A PATIENT - Discharge Diagnoses (1) Hypokalemia Status: Acute (2) Pulmonary infiltrates on CXR Status: Acute (3) Recurrent seizures Status: Acute (4) Altered mental status Status: Acute Comment: Lower extremity cellulitis. Resolved about at baseline patient has a baseline dementia that was exacerbated by UTI (5) Stroke due to embolism Status: Acute Core Measure Documentation - Palliative Care Palliative Care/ Comfort Measures: Not Applicable - Core Measures Any of the following diagnoses?: none - Stroke Discharge Requirements Statin for LDL = or >70 mg/dl on DC: Yes Anticoag for atrial fib/atrial flutter: Not Applicable Antithrombotic for ischemic stroke: Yes Exam - Physical Exam Narrative exam: Not in cardiopulmonary distress. The patient is emaciated. Vital signs as documented. Head exam is unremarkable. No scleral icterus . Neck is without jugular venous distension, thyromegaly, or carotid bruits. Lungs are clear to auscultation. Cardiac exam reveals regular rate and Rhythm. First and second heart sounds normal. No murmurs, rubs or gallops. Abdominal exam reveals normal bowel sounds, no masses, no organomegaly and no aortic enlargement. Extremities contracted. Sacral decubitus ulcer. 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 - Constitutional Vitals: Temp Pulse Resp BP Pulse Ox 99.0 F 106 H 18 110/66 100 01/07/17 07:56 01/07/17 07:56 01/07/17 07:56 01/07/17 07:56 01/07/17 07:56 Plan Activity: fall precautions Weight Bearing Status: Weight Bear as Tolerated Diet: low cholesterol Follow up with: CLEMENTINA FORD DO [Primary Care Provider] - 7 Days Prescriptions: AtorvaSTATin [Lipitor] 40 mg PO QHS #30 tablet Aspirin [Aspirin SUPPOS] 300 mg MS QDAY #30 supp.rect levETIRAcetam [Keppra TAB] 1,000 mg FEEDTUBE DAILY #60 tablet Levofloxacin [Levaquin TAB] 500 mg PO QDAY #3 tablet oxyCODONE /ACETAMINOPHEN [Percocet 5/325 mg] 1 tab FEEDTUBE Q6H PRN #12 tablet PRN Reason: Pain, Moderate (4-6)
--- NOTE | 2017-01-07 16:59 | Progress Note ---
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 - Patient Problems (1) Hypokalemia Current Visit: Yes Status: Acute (2) Pulmonary infiltrates on CXR Current Visit: Yes Status: Acute (3) Recurrent seizures Current Visit: Yes Status: Acute (4) Altered mental status Current Visit: No Status: Acute (5) Stroke due to embolism Current Visit: Yes Status: Acute History Interval history: Patient seen and evaluated at the bedside, no episodes of seizures. patient was talking to me. Hospitalist Physical - Physical exam Narrative exam: Not in cardiopulmonary distress. The patient is emaciated. Vital signs as documented. Head exam is unremarkable. No scleral icterus . Neck is without jugular venous distension, thyromegaly, or carotid bruits. Lungs are clear to auscultation. Cardiac exam reveals regular rate and Rhythm. First and second heart sounds normal. No murmurs, rubs or gallops. Abdominal exam reveals normal bowel sounds, no masses, no organomegaly and no aortic enlargement. Extremities contracted. Sacral decubitus ulcer. 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 - Constitutional Vitals: Temp Pulse Resp BP Pulse Ox 98.1 F 109 H 28 H 144/71 100 01/07/17 14:59 01/07/17 14:59 01/07/17 14:59 01/07/17 14:59 01/07/17 14:59 General appearance: Present: no acute distress Results - Labs CBC & Chem 7: 01/06/17 05:37 01/06/17 05:37 Labs: Laboratory Last Values WBC 7.2 K/mm3 (4.5-11.0) 01/06/17 05:37 RBC 3.55 M/mm3 (3.65-5.03) L 01/06/17 05:37 Hgb 11.2 gm/dl (11.8-15.2) L 01/06/17 05:37 Hct 32.5 % (35.5-45.6) L 01/06/17 05:37 MCV 92 fl (84-94) 01/06/17 05:37 MCH 32 pg (28-32) 01/06/17 05:37 MCHC 34 % (32-34) 01/06/17 05:37 RDW 14.3 % (13.2-15.2) 01/06/17 05:37 Plt Count 638 K/mm3 (140-440) H 01/06/17 05:37 Lymph % (Auto) 15.8 % (13.4-35.0) 01/06/17 05:37 [place] % (Auto) 7.7 % (0.0-7.3) H 01/06/17 05:37 Eos % (Auto) 1.4 % (0.0-4.3) 01/06/17 05:37 Baso % (Auto) 0.6 % (0.0-1.8) 01/06/17 05:37 Lymph # 1.1 K/mm3 (1.2-5.4) L 01/06/17 05:37 [place] # 0.6 K/mm3 (0.0-0.8) 01/06/17 05:37 Eos # 0.1 K/mm3 (0.0-0.4) 01/06/17 05:37 Baso # 0.0 K/mm3 (0.0-0.1) 01/06/17 05:37 Seg Neutrophils % 74.5 % (40.0-70.0) H 01/06/17 05:37 Seg Neutrophils # 5.3 K/mm3 (1.8-7.7) 01/06/17 05:37 VBG pH 7.366 (7.320-7.420) 12/31/16 16:15 Sodium 136 mmol/L (137-145) L 01/06/17 05:37 Potassium 4.9 mmol/L (3.6-5.0) 01/06/17 05:37 Chloride 100.3 mmol/L (98-107) 01/06/17 05:37 Carbon Dioxide 27 mmol/L (22-30) 01/06/17 05:37 Anion Gap 14 mmol/L 01/06/17 05:37 BUN 12 mg/dL (9-20) 01/06/17 05:37 Creatinine 0.5 mg/dL (0.8-1.5) L 01/06/17 05:37 Estimated GFR > 60 ml/min 01/06/17 05:37 BUN/Creatinine Ratio 24 % 01/06/17 05:37 Glucose 125 mg/dL (75-100) H 01/06/17 05:37 POC Glucose 99 (70-105) 01/07/17 12:19 Hemoglobin A1c 5.4 % (4-6) 01/03/17 09:22 Lactic Acid 1.60 mmol/L (0.7-2.0) 12/31/16 16:08 Calcium 8.3 mg/dL (8.4-10.2) L 01/06/17 05:37 Magnesium 2.10 mg/dL (1.7-2.3) 12/31/16 16:16 Total Bilirubin 0.30 mg/dL (0.1-1.2) 12/31/16 16:16 Direct Bilirubin < 0.2 mg/dL (0-0.2) 12/31/16 16:16 AST 41 units/L (5-40) H 12/31/16 16:16 ALT 18 units/L (7-56) 12/31/16 16:16 Alkaline Phosphatase 57 units/L (35-129) 12/31/16 16:16 Total Creatine Kinase 745 units/L (55-170) H 12/31/16 16:16 Total Protein 6.0 g/dL (6.3-8.2) L 12/31/16 16:16 Albumin 2.2 g/dL (3.9-5) L 12/31/16 16:16 Albumin/Globulin Ratio 0.6 % 12/31/16 16:16 Urine Color Yellow (Yellow) 01/01/17 06:21 Urine Turbidity Clear (Clear) 01/01/17 06:21 Urine pH 7.0 (5.0-7.0) 01/01/17 06:21 Ur Specific [place] 1.021 (1.003-1.030) 01/01/17 06:21 Urine Protein <15 mg/dl mg/dL (Negative) 01/01/17 06:21 Urine Glucose (UA) Neg mg/dL (Negative) 01/01/17 06:21 Urine Ketones 20 mg/dL (Negative) 01/01/17 06:21 Urine Blood Sm (Negative) 01/01/17 06:21 Urine Nitrite Neg (Negative) 01/01/17 06:21 Urine Bilirubin Neg (Negative) 01/01/17 06:21 Urine Urobilinogen < 2.0 mg/dL (<2.0) 01/01/17 06:21 Ur Leukocyte Esterase Neg (Negative) 01/01/17 06:21 Urine WBC (Auto) 4.0 /HPF (0.0-6.0) 01/01/17 06:21 Urine RBC (Auto) 15.0 /HPF (0.0-6.0) 01/01/17 06:21 U Epithel Cells (Auto) < 1.0 /HPF (0-13.0) 01/01/17 06:21 Urine Mucus Few /HPF 12/31/16 18:04
--- NOTE | 2017-01-07 20:45 | Progress Note ---
Assessment and Plan - Patient Problems (1) Recurrent seizures Current Visit: Yes Status: Acute Plan to address problem: Await neurology eval. no new issuesat this time. disposition as per you. (2) Altered mental status Current Visit: No Status: Acute Plan to address problem: This is due to the seizure., same as above. no seizure activity recent. Subjective Date of service: 01/07/17 Interval history: patient was seen earlier, resting in bed, no acute distress.labs reviewed. disposition as per you. Patient resting ok in bed at5 the time seem, no new issues.Awaiting placement. Objective - Constitutional Vitals: Vital Signs - 12hr 01/07/17 01/07/17 01/07/17 14:12 14:26 14:59 Temperature 98.1 F Pulse Rate 109 H Pulse Rate [ 106 H 106 H Anterior Bilateral Throughout] Respiratory 28 H Rate Respiratory 16 16 Rate [Anterior Bilateral Throughout] Blood Pressure 144/71 O2 Sat by Pulse 100 Oximetry General appearance: Present: no acute distress, well-nourished - EENT Eyes: PERRL, EOM intact ENT: hearing intact, clear oral mucosa Ears: bilateral: normal - Neck Neck: supple, normal ROM - Respiratory Respiratory effort: normal Respiratory: bilateral: CTA - Cardiovascular Rhythm: regular Heart Sounds: Present: S1 & S2. Absent: gallop, rub Extremities: pulses intact, No edema, normal color, Full ROM - Gastrointestinal General gastrointestinal: Present: soft, non-tender, non-distended, normal bowel sounds Rectal Exam: deferred - Genitourinary Male genitourinary: deferred - Integumentary Integumentary: clear, warm, dry - Musculoskeletal Musculoskeletal: 1, strength equal bilaterally - Neurologic Neurologic: moves all extremities - Psychiatric Psychiatric: appropriate mood/affect - Labs CBC & Chem 7: 01/06/17 05:37 01/06/17 05:37 Labs: Abnormal lab results 01/06/17 01/07/17 01/07/17 Range/Units 23:57 05:35 16:37 POC Glucose 145 H 139 H 132 H (70-105)
[2017-01-08] MEDS: DUONEB *Not for PRN Use IH SCH ×3 (07:57→21:10)
--- NOTE | 2017-01-08 08:09 | Progress Note ---
Assessment and Plan Assessment and plan: 75-year-old man with a history of prostate cancer, seizure was sent to the emergency room from the residential because she had 3 seizures at the residential, one in route to the hospital and 2 in the emergency room. 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 History Interval history: No new Events overnight. Hospitalist Physical - Physical exam Narrative exam: General.: Appears well, no distress, nontoxic HEENT: Moist mucous membranes, extraocular muscles intact, no lymphadenopathy Neck: supple Cardiac: S1-S2 heard Lungs: clear to auscultation bilaterally Abdomen: soft , nontender, nondistended, bowel sounds positive Extremities: no edema clubbing or cyanosis Skin: no rash or lesions Neurologic: Opens eyes, tracks and turn stimulate walking around. Does not move any extremities, does not be any commands. Nonverbal - Constitutional Vitals: Temp Pulse Resp BP Pulse Ox 97.8 F 94 H 16 109/61 100 01/08/17 00:15 01/08/17 07:57 01/08/17 07:57 01/08/17 00:15 01/08/17 07:57 General appearance: Present: no acute distress, well-nourished Results - Labs CBC & Chem 7: 01/06/17 05:37 01/06/17 05:37 Labs: Laboratory Last Values WBC 7.2 K/mm3 (4.5-11.0) 01/06/17 05:37 RBC 3.55 M/mm3 (3.65-5.03) L 01/06/17 05:37 Hgb 11.2 gm/dl (11.8-15.2) L 01/06/17 05:37 Hct 32.5 % (35.5-45.6) L 01/06/17 05:37 MCV 92 fl (84-94) 01/06/17 05:37 MCH 32 pg (28-32) 01/06/17 05:37 MCHC 34 % (32-34) 01/06/17 05:37 RDW 14.3 % (13.2-15.2) 01/06/17 05:37 Plt Count 638 K/mm3 (140-440) H 01/06/17 05:37 Lymph % (Auto) 15.8 % (13.4-35.0) 01/06/17 05:37 [place] % (Auto) 7.7 % (0.0-7.3) H 01/06/17 05:37 Eos % (Auto) 1.4 % (0.0-4.3) 01/06/17 05:37 Baso % (Auto) 0.6 % (0.0-1.8) 01/06/17 05:37 Lymph # 1.1 K/mm3 (1.2-5.4) L 01/06/17 05:37 [place] # 0.6 K/mm3 (0.0-0.8) 01/06/17 05:37 Eos # 0.1 K/mm3 (0.0-0.4) 01/06/17 05:37 Baso # 0.0 K/mm3 (0.0-0.1) 01/06/17 05:37 Seg Neutrophils % 74.5 % (40.0-70.0) H 01/06/17 05:37 Seg Neutrophils # 5.3 K/mm3 (1.8-7.7) 01/06/17 05:37 VBG pH 7.366 (7.320-7.420) 12/31/16 16:15 Sodium 136 mmol/L (137-145) L 01/06/17 05:37 Potassium 4.9 mmol/L (3.6-5.0) 01/06/17 05:37 Chloride 100.3 mmol/L (98-107) 01/06/17 05:37 Carbon Dioxide 27 mmol/L (22-30) 01/06/17 05:37 Anion Gap 14 mmol/L 01/06/17 05:37 BUN 12 mg/dL (9-20) 01/06/17 05:37 Creatinine 0.5 mg/dL (0.8-1.5) L 01/06/17 05:37 Estimated GFR > 60 ml/min 01/06/17 05:37 BUN/Creatinine Ratio 24 % 01/06/17 05:37 Glucose 125 mg/dL (75-100) H 01/06/17 05:37 POC Glucose 129 (70-105) H 01/08/17 06:10 Hemoglobin A1c 5.4 % (4-6) 01/03/17 09:22 Lactic Acid 1.60 mmol/L (0.7-2.0) 12/31/16 16:08 Calcium 8.3 mg/dL (8.4-10.2) L 01/06/17 05:37 Magnesium 2.10 mg/dL (1.7-2.3) 12/31/16 16:16 Total Bilirubin 0.30 mg/dL (0.1-1.2) 12/31/16 16:16 Direct Bilirubin < 0.2 mg/dL (0-0.2) 12/31/16 16:16 AST 41 units/L (5-40) H 12/31/16 16:16 ALT 18 units/L (7-56) 12/31/16 16:16 Alkaline Phosphatase 57 units/L (35-129) 12/31/16 16:16 Total Creatine Kinase 745 units/L (55-170) H 12/31/16 16:16 Total Protein 6.0 g/dL (6.3-8.2) L 12/31/16 16:16 Albumin 2.2 g/dL (3.9-5) L 12/31/16 16:16 Albumin/Globulin Ratio 0.6 % 12/31/16 16:16 Urine Color Yellow (Yellow) 01/01/17 06:21 Urine Turbidity Clear (Clear) 01/01/17 06:21 Urine pH 7.0 (5.0-7.0) 01/01/17 06:21 Ur Specific [place] 1.021 (1.003-1.030) 01/01/17 06:21 Urine Protein <15 mg/dl mg/dL (Negative) 01/01/17 06:21 Urine Glucose (UA) Neg mg/dL (Negative) 01/01/17 06:21 Urine Ketones 20 mg/dL (Negative) 01/01/17 06:21 Urine Blood Sm (Negative) 01/01/17 06:21 Urine Nitrite Neg (Negative) 01/01/17 06:21 Urine Bilirubin Neg (Negative) 01/01/17 06:21 Urine Urobilinogen < 2.0 mg/dL (<2.0) 01/01/17 06:21 Ur Leukocyte Esterase Neg (Negative) 01/01/17 06:21 Urine WBC (Auto) 4.0 /HPF (0.0-6.0) 01/01/17 06:21 Urine RBC (Auto) 15.0 /HPF (0.0-6.0) 01/01/17 06:21 U Epithel Cells (Auto) < 1.0 /HPF (0-13.0) 01/01/17 06:21 Urine Mucus Few /HPF 12/31/16 18:04
[2017-01-08] MEDS: LEVAQUIN 750MG/150ML 750 MG/150 ML BAG IV SCH (10:16)
[2017-01-08] MEDS: FLORINEF FEEDTUBE SCH (10:16)
[2017-01-08] MEDS: KEPPRA PO SCH ×2 (10:16→22:33)
[2017-01-08] MEDS: ASPIRIN PR SCH (10:16)
--- NOTE | 2017-01-08 21:29 | Progress Note ---
Assessment and Plan - Patient Problems (1) Recurrent seizures Current Visit: Yes Status: Acute Plan to address problem: Await neurology eval. no new issues at this time. disposition as per you. (2) Altered mental status Current Visit: No Status: Acute Plan to address problem: This is due to the seizure., same as above. no seizure activity recent. Subjective Date of service: 01/08/17 Interval history: patient was seen earlier, resting in bed, no acute distress.labs reviewed. disposition as per you. Patient resting ok in bed at5 the time seem, no new issues.Awaiting placement. Patient resting in bed, no new issues at this time, awaiting placement. Objective - Constitutional Vitals: Vital Signs - 12hr 01/08/17 01/08/17 01/08/17 10:53 14:26 14:51 Temperature 98.5 F Pulse Rate 103 H Pulse Rate [ 92 H 94 H Anterior Bilateral Throughout] Respiratory 18 Rate Respiratory 16 16 Rate [Anterior Bilateral Throughout] Blood Pressure Blood Pressure 108/64 [Left] O2 Sat by Pulse 95 Oximetry 01/08/17 17:22 Temperature 99.1 F Pulse Rate 108 H Pulse Rate [ Anterior Bilateral Throughout] Respiratory 18 Rate Respiratory Rate [Anterior Bilateral Throughout] Blood Pressure 104/47 Blood Pressure [Left] O2 Sat by Pulse 100 Oximetry General appearance: Present: no acute distress, well-nourished - EENT Eyes: PERRL, EOM intact ENT: hearing intact, clear oral mucosa Ears: bilateral: normal - Neck Neck: supple, normal ROM - Respiratory Respiratory effort: normal Respiratory: bilateral: CTA - Cardiovascular Rhythm: regular Heart Sounds: Present: S1 & S2. Absent: gallop, rub Extremities: pulses intact, No edema, normal color, Full ROM - Gastrointestinal General gastrointestinal: Present: soft, non-tender, non-distended, normal bowel sounds Rectal Exam: deferred - Genitourinary Male genitourinary: deferred - Integumentary Integumentary: clear, warm, dry - Musculoskeletal Musculoskeletal: 1, strength equal bilaterally - Neurologic Neurologic: moves all extremities - Psychiatric Psychiatric: memory intact, appropriate mood/affect, intact judgment & insight - Labs CBC & Chem 7: 01/06/17 05:37 01/06/17 05:37 Labs: Abnormal lab results 01/08/17 01/08/17 Range/Units 06:10 17:25 POC Glucose 129 H 160 H (70-105)
[2017-01-09] MEDS: DUONEB *Not for PRN Use IH SCH ×3 (08:11→21:35)
[2017-01-09] MEDS: KEPPRA PO SCH ×2 (12:21→22:10)
[2017-01-09] MEDS: FLORINEF FEEDTUBE SCH (12:22)
[2017-01-09] MEDS: ASPIRIN PR SCH (12:23)
--- NOTE | 2017-01-09 16:24 | Progress Note ---
Assessment and Plan Assessment and plan: 75-year-old man with a history of prostate cancer, seizure was sent to the emergency room from the group home because she had 3 seizures at the group home, one in route to the hospital and 2 in the emergency room. Status epilepticus Continue seizure medications, no further seizures in hospital. Subacute CVA/ infarction Case discussed with neurologist. Continues secondary stroke prophylaxis medications Rahat's disease Functional quadriplegia Continue supportive care Sacral decubitus ulcer, present on admission Continuing care DVT prophylaxis - Heparin Disposition - patient is stable for discharge,pending for placement to SNF. History Interval history: No new Events overnight. Hospitalist Physical - Physical exam Narrative exam: General.: Appears well, no distress, nontoxic HEENT: Moist mucous membranes, extraocular muscles intact, no lymphadenopathy Neck: supple Cardiac: S1-S2 heard Lungs: clear to auscultation bilaterally Abdomen: soft , nontender, nondistended, bowel sounds positive Extremities: no edema clubbing or cyanosis Skin: no rash or lesions Neurologic: Opens eyes, tracks and turn stimulate walking around. Does not move any extremities, does not be any commands. Nonverbal - Constitutional Vitals: Temp Pulse Resp BP Pulse Ox 97.8 F 114 H 24 112/60 99 01/09/17 15:10 01/09/17 15:10 01/09/17 15:10 01/09/17 15:10 01/09/17 15:10 General appearance: Present: no acute distress, well-nourished Results - Labs CBC & Chem 7: 01/06/17 05:37 01/06/17 05:37 Labs: Laboratory Last Values WBC 7.2 K/mm3 (4.5-11.0) 01/06/17 05:37 RBC 3.55 M/mm3 (3.65-5.03) L 01/06/17 05:37 Hgb 11.2 gm/dl (11.8-15.2) L 01/06/17 05:37 Hct 32.5 % (35.5-45.6) L 01/06/17 05:37 MCV 92 fl (84-94) 01/06/17 05:37 MCH 32 pg (28-32) 01/06/17 05:37 MCHC 34 % (32-34) 01/06/17 05:37 RDW 14.3 % (13.2-15.2) 01/06/17 05:37 Plt Count 638 K/mm3 (140-440) H 01/06/17 05:37 Lymph % (Auto) 15.8 % (13.4-35.0) 01/06/17 05:37 [place] % (Auto) 7.7 % (0.0-7.3) H 01/06/17 05:37 Eos % (Auto) 1.4 % (0.0-4.3) 01/06/17 05:37 Baso % (Auto) 0.6 % (0.0-1.8) 01/06/17 05:37 Lymph # 1.1 K/mm3 (1.2-5.4) L 01/06/17 05:37 [place] # 0.6 K/mm3 (0.0-0.8) 01/06/17 05:37 Eos # 0.1 K/mm3 (0.0-0.4) 01/06/17 05:37 Baso # 0.0 K/mm3 (0.0-0.1) 01/06/17 05:37 Seg Neutrophils % 74.5 % (40.0-70.0) H 01/06/17 05:37 Seg Neutrophils # 5.3 K/mm3 (1.8-7.7) 01/06/17 05:37 VBG pH 7.366 (7.320-7.420) 12/31/16 16:15 Sodium 136 mmol/L (137-145) L 01/06/17 05:37 Potassium 4.9 mmol/L (3.6-5.0) 01/06/17 05:37 Chloride 100.3 mmol/L (98-107) 01/06/17 05:37 Carbon Dioxide 27 mmol/L (22-30) 01/06/17 05:37 Anion Gap 14 mmol/L 01/06/17 05:37 BUN 12 mg/dL (9-20) 01/06/17 05:37 Creatinine 0.5 mg/dL (0.8-1.5) L 01/06/17 05:37 Estimated GFR > 60 ml/min 01/06/17 05:37 BUN/Creatinine Ratio 24 % 01/06/17 05:37 Glucose 125 mg/dL (75-100) H 01/06/17 05:37 POC Glucose 150 (70-105) H 01/09/17 12:13 Hemoglobin A1c 5.4 % (4-6) 01/03/17 09:22 Lactic Acid 1.60 mmol/L (0.7-2.0) 12/31/16 16:08 Calcium 8.3 mg/dL (8.4-10.2) L 01/06/17 05:37 Magnesium 2.10 mg/dL (1.7-2.3) 12/31/16 16:16 Total Bilirubin 0.30 mg/dL (0.1-1.2) 12/31/16 16:16 Direct Bilirubin < 0.2 mg/dL (0-0.2) 12/31/16 16:16 AST 41 units/L (5-40) H 12/31/16 16:16 ALT 18 units/L (7-56) 12/31/16 16:16 Alkaline Phosphatase 57 units/L (35-129) 12/31/16 16:16 Total Creatine Kinase 745 units/L (55-170) H 12/31/16 16:16 Total Protein 6.0 g/dL (6.3-8.2) L 12/31/16 16:16 Albumin 2.2 g/dL (3.9-5) L 12/31/16 16:16 Albumin/Globulin Ratio 0.6 % 12/31/16 16:16 Urine Color Yellow (Yellow) 01/01/17 06:21 Urine Turbidity Clear (Clear) 01/01/17 06:21 Urine pH 7.0 (5.0-7.0) 01/01/17 06:21 Ur Specific [place] 1.021 (1.003-1.030) 01/01/17 06:21 Urine Protein <15 mg/dl mg/dL (Negative) 01/01/17 06:21 Urine Glucose (UA) Neg mg/dL (Negative) 01/01/17 06:21 Urine Ketones 20 mg/dL (Negative) 01/01/17 06:21 Urine Blood Sm (Negative) 01/01/17 06:21 Urine Nitrite Neg (Negative) 01/01/17 06:21 Urine Bilirubin Neg (Negative) 01/01/17 06:21 Urine Urobilinogen < 2.0 mg/dL (<2.0) 01/01/17 06:21 Ur Leukocyte Esterase Neg (Negative) 01/01/17 06:21 Urine WBC (Auto) 4.0 /HPF (0.0-6.0) 01/01/17 06:21 Urine RBC (Auto) 15.0 /HPF (0.0-6.0) 01/01/17 06:21 U Epithel Cells (Auto) < 1.0 /HPF (0-13.0) 01/01/17 06:21 Urine Mucus Few /HPF 12/31/16 18:04
--- NOTE | 2017-01-09 16:31 | Progress Note ---
Assessment and Plan - Patient Problems (1) Recurrent seizures Current Visit: Yes Status: Acute Plan to address problem: Await neurology eval. no new issues at this time. disposition as per you. (2) Altered mental status Current Visit: No Status: Acute Plan to address problem: This is due to the seizure., same as above. no seizure activity recent. Subjective Date of service: 01/09/17 Interval history: patient was seen earlier, resting in bed, no acute distress.labs reviewed. disposition as per you. Patient resting ok in bed at5 the time seem, no new issues.Awaiting placement. Patient resting in bed, no new issues at this time, awaiting placement. Patient seen/examined, resting in bed, vss.records reviewed. Objective - Constitutional Vitals: Vital Signs - 12hr 01/09/17 01/09/17 01/09/17 08:10 08:18 08:25 Temperature 98.8 F Pulse Rate 107 H Pulse Rate [ 100 H 104 H Anterior Bilateral Throughout] Respiratory 24 Rate Respiratory 20 20 Rate [Anterior Bilateral Throughout] Blood Pressure 101/52 O2 Sat by Pulse 100 Oximetry 01/09/17 01/09/17 10:00 15:10 Temperature 97.8 F Pulse Rate 114 H Pulse Rate [ Anterior Bilateral Throughout] Respiratory 24 Rate Respiratory Rate [Anterior Bilateral Throughout] Blood Pressure 112/60 O2 Sat by Pulse 100 99 Oximetry General appearance: Present: no acute distress, well-nourished - EENT Eyes: PERRL, EOM intact ENT: hearing intact, clear oral mucosa Ears: bilateral: normal - Neck Neck: supple, normal ROM - Respiratory Respiratory effort: normal Respiratory: bilateral: CTA - Cardiovascular Rhythm: regular Heart Sounds: Present: S1 & S2. Absent: gallop, rub Extremities: pulses intact, No edema, normal color, Full ROM - Gastrointestinal General gastrointestinal: Present: soft, non-tender, non-distended, normal bowel sounds Rectal Exam: deferred - Genitourinary Male genitourinary: deferred - Integumentary Integumentary: clear, warm, dry - Musculoskeletal Musculoskeletal: 1, strength equal bilaterally - Neurologic Neurologic: moves all extremities - Psychiatric Psychiatric: appropriate mood/affect, intact judgment & insight - Labs CBC & Chem 7: 01/06/17 05:37 01/06/17 05:37 Labs: Abnormal lab results 11/01/09/17 01/09/17 Range/Units 17:25 01:01 05:38 POC Glucose 160 H 138 H 127 H (70-105) 01/09/17 Range/Units 12:13 POC Glucose 150 H (70-105)
[2017-01-10] MEDS: DUONEB *Not for PRN Use IH SCH ×3 (10:18→20:25)
[2017-01-10] MEDS: KEPPRA PO SCH ×2 (11:08→22:21)
[2017-01-10] MEDS: ASPIRIN PR SCH (11:08)
[2017-01-10] MEDS: FLORINEF FEEDTUBE SCH (11:11)
--- NOTE | 2017-01-10 19:02 | Progress Note ---
Assessment and Plan - Patient Problems (1) Recurrent seizures Current Visit: Yes Status: Acute Plan to address problem: Await neurology eval. no new issues at this time. disposition as per you. (2) Altered mental status Current Visit: No Status: Acute Plan to address problem: This is due to the seizure., same as above. no seizure activity recent. Subjective Date of service: 01/10/17 Interval history: patient was seen earlier, resting in bed, no acute distress.labs reviewed. disposition as per you. Patient resting ok in bed at5 the time seem, no new issues.Awaiting placement. Patient resting in bed, no new issues at this time, awaiting placement. Patient seen/examined, resting in bed, vss.records reviewed. Patient seen, resting in bed, no acute distress at the time of visit. Objective - Constitutional Vitals: Vital Signs - 12hr 01/10/17 01/10/17 01/10/17 09:26 10:16 10:28 Temperature 98.0 F Pulse Rate 107 H Pulse Rate [ 102 H 102 H Anterior Bilateral Throughout] Respiratory 14 Rate Respiratory 20 18 Rate [Anterior Bilateral Throughout] Blood Pressure 108/57 O2 Sat by Pulse 100 100 Oximetry 01/10/17 01/10/17 01/10/17 11:12 16:09 16:48 Temperature 98.5 F Pulse Rate Pulse Rate [ 102 H Anterior Bilateral Throughout] Respiratory 24 Rate Respiratory 22 Rate [Anterior Bilateral Throughout] Blood Pressure 110/61 O2 Sat by Pulse Oximetry 01/10/17 17:02 Temperature Pulse Rate Pulse Rate [ 100 H Anterior Bilateral Throughout] Respiratory Rate Respiratory 20 Rate [Anterior Bilateral Throughout] Blood Pressure O2 Sat by Pulse Oximetry General appearance: Present: no acute distress, well-nourished - EENT Eyes: PERRL, EOM intact ENT: hearing intact, clear oral mucosa Ears: bilateral: normal - Neck Neck: supple, normal ROM - Respiratory Respiratory effort: normal Respiratory: bilateral: CTA - Cardiovascular Rhythm: regular Heart Sounds: Present: S1 & S2. Absent: gallop, rub Extremities: pulses intact, No edema, normal color, Full ROM - Gastrointestinal General gastrointestinal: Present: soft, non-tender, non-distended, normal bowel sounds Rectal Exam: deferred - Genitourinary Male genitourinary: deferred - Integumentary Integumentary: clear, warm, dry - Musculoskeletal Musculoskeletal: 1, strength equal bilaterally - Neurologic Neurologic: moves all extremities - Psychiatric Psychiatric: memory intact, appropriate mood/affect, intact judgment & insight - Labs CBC & Chem 7: 01/06/17 05:37 01/06/17 05:37 Labs: Abnormal lab results 01/09/17 01/10/17 Range/Units 21:13 06:41 POC Glucose 119 H 141 H (70-105)
--- NOTE | 2017-01-10 20:14 | Progress Note ---
Assessment and Plan Assessment and plan: 75-year-old man with a history of prostate cancer, seizure was [facility] because [facility] at the [facility], one in route to the hospital and 2 in the emergency room. Status epilepticus Continue seizure medications, no further seizures in hospital. Subacute CVA/ infarction Case discussed with neurologist. Continues secondary stroke prophylaxis medications Functional quadriplegia Continue supportive care Sacral decubitus ulcer, present on admission Continuing care DVT prophylaxis - Heparin Disposition - patient is stable for discharge,pending for placement to SNF. History Interval history: No new Events overnight. Hospitalist Physical - Physical exam Narrative exam: General.: Appears well, no distress, nontoxic HEENT: Moist mucous membranes, extraocular muscles intact, no lymphadenopathy Neck: supple Cardiac: S1-S2 heard Lungs: clear to auscultation bilaterally Abdomen: soft , nontender, nondistended, bowel sounds positive Extremities: no edema clubbing or cyanosis Skin: no rash or lesions Neurologic: Opens eyes, tracks and turn stimulate walking around. Does not move any extremities, does not be any commands. Nonverbal - Constitutional Vitals: Temp Pulse Resp BP Pulse Ox 98.5 F 100 H 20 110/61 100 01/10/17 16:09 01/10/17 17:02 01/10/17 17:02 01/10/17 11:12 01/10/17 10:16 General appearance: Present: no acute distress, well-nourished Results - Labs CBC & Chem 7: 01/06/17 05:37 01/06/17 05:37 Labs: Laboratory Last Values WBC 7.2 K/mm3 (4.5-11.0) 01/06/17 05:37 RBC 3.55 M/mm3 (3.65-5.03) L 01/06/17 05:37 Hgb 11.2 gm/dl (11.8-15.2) L 01/06/17 05:37 Hct 32.5 % (35.5-45.6) L 01/06/17 05:37 MCV 92 fl (84-94) 01/06/17 05:37 MCH 32 pg (28-32) 01/06/17 05:37 MCHC 34 % (32-34) 01/06/17 05:37 RDW 14.3 % (13.2-15.2) 01/06/17 05:37 Plt Count 638 K/mm3 (140-440) H 01/06/17 05:37 Lymph % (Auto) 15.8 % (13.4-35.0) 01/06/17 05:37 [place] % (Auto) 7.7 % (0.0-7.3) H 01/06/17 05:37 Eos % (Auto) 1.4 % (0.0-4.3) 01/06/17 05:37 Baso % (Auto) 0.6 % (0.0-1.8) 01/06/17 05:37 Lymph # 1.1 K/mm3 (1.2-5.4) L 01/06/17 05:37 [place] # 0.6 K/mm3 (0.0-0.8) 01/06/17 05:37 Eos # 0.1 K/mm3 (0.0-0.4) 01/06/17 05:37 Baso # 0.0 K/mm3 (0.0-0.1) 01/06/17 05:37 Seg Neutrophils % 74.5 % (40.0-70.0) H 01/06/17 05:37 Seg Neutrophils # 5.3 K/mm3 (1.8-7.7) 01/06/17 05:37 VBG pH 7.366 (7.320-7.420) 12/31/16 16:15 Sodium 136 mmol/L (137-145) L 01/06/17 05:37 Potassium 4.9 mmol/L (3.6-5.0) 01/06/17 05:37 Chloride 100.3 mmol/L (98-107) 01/06/17 05:37 Carbon Dioxide 27 mmol/L (22-30) 01/06/17 05:37 Anion Gap 14 mmol/L 01/06/17 05:37 BUN 12 mg/dL (9-20) 01/06/17 05:37 Creatinine 0.5 mg/dL (0.8-1.5) L 01/06/17 05:37 Estimated GFR > 60 ml/min 01/06/17 05:37 BUN/Creatinine Ratio 24 % 01/06/17 05:37 Glucose 125 mg/dL (75-100) H 01/06/17 05:37 POC Glucose 141 (70-105) H 01/10/17 06:41 Hemoglobin A1c 5.4 % (4-6) 01/03/17 09:22 Lactic Acid 1.60 mmol/L (0.7-2.0) 12/31/16 16:08 Calcium 8.3 mg/dL (8.4-10.2) L 01/06/17 05:37 Magnesium 2.10 mg/dL (1.7-2.3) 12/31/16 16:16 Total Bilirubin 0.30 mg/dL (0.1-1.2) 12/31/16 16:16 Direct Bilirubin < 0.2 mg/dL (0-0.2) 12/31/16 16:16 AST 41 units/L (5-40) H 12/31/16 16:16 ALT 18 units/L (7-56) 12/31/16 16:16 Alkaline Phosphatase 57 units/L (35-129) 12/31/16 16:16 Total Creatine Kinase 745 units/L (55-170) H 12/31/16 16:16 Total Protein 6.0 g/dL (6.3-8.2) L 12/31/16 16:16 Albumin 2.2 g/dL (3.9-5) L 12/31/16 16:16 Albumin/Globulin Ratio 0.6 % 12/31/16 16:16 Urine Color Yellow (Yellow) 01/01/17 06:21 Urine Turbidity Clear (Clear) 01/01/17 06:21 Urine pH 7.0 (5.0-7.0) 01/01/17 06:21 Ur Specific [place] 1.021 (1.003-1.030) 01/01/17 06:21 Urine Protein <15 mg/dl mg/dL (Negative) 01/01/17 06:21 Urine Glucose (UA) Neg mg/dL (Negative) 01/01/17 06:21 Urine Ketones 20 mg/dL (Negative) 01/01/17 06:21 Urine Blood Sm (Negative) 01/01/17 06:21 Urine Nitrite Neg (Negative) 01/01/17 06:21 Urine Bilirubin Neg (Negative) 01/01/17 06:21 Urine Urobilinogen < 2.0 mg/dL (<2.0) 01/01/17 06:21 Ur Leukocyte Esterase Neg (Negative) 01/01/17 06:21 Urine WBC (Auto) 4.0 /HPF (0.0-6.0) 01/01/17 06:21 Urine RBC (Auto) 15.0 /HPF (0.0-6.0) 01/01/17 06:21 U Epithel Cells (Auto) < 1.0 /HPF (0-13.0) 01/01/17 06:21 Urine Mucus Few /HPF 12/31/16 18:04
[2017-01-11] MEDS: DUONEB *Not for PRN Use IH SCH ×3 (10:22→20:31)
--- NOTE | 2017-01-11 11:01 | Progress Note ---
Assessment and Plan Assessment and plan: 75-year-old man with a history of prostate cancer, seizure was sent to the emergency room from the snf because she had 3 seizures at the snf, one in route to the hospital and 2 in the emergency room. Status epilepticus Continue seizure medications, no further seizures in hospital. -continue current AEDs History of CVA Case discussed with neurologist. no evidence of recent or acute cva Continues secondary stroke prophylaxis medications Functional quadriplegia Continue supportive care Sacral decubitus ulcer, present on admission Continuing care DVT prophylaxis - Heparin Disposition - patient is stable for discharge,pending for placement to SNF. History Interval history: no new seizures, no vomiting, no fevers, no sob Hospitalist Physical - Physical exam Narrative exam: General.: Appears well, no distress, nontoxic HEENT: Moist mucous membranes, extraocular muscles intact, no lymphadenopathy Neck: supple Cardiac: S1-S2 heard Lungs: clear to auscultation bilaterally Abdomen: soft , nontender, nondistended, bowel sounds positive Extremities: no edema clubbing or cyanosis Skin: no rash or lesions Neurologic: Opens eyes, tracks and turn stimulate walking around. Does not move any extremities, does not be any commands. Nonverbal - Constitutional Vitals: Temp Pulse Resp BP Pulse Ox 98.2 F 103 H 18 115/63 99 01/11/17 08:22 01/11/17 10:25 01/11/17 10:25 01/11/17 08:22 01/11/17 10:00 General appearance: Present: no acute distress, well-nourished Results - Labs CBC & Chem 7: 01/06/17 05:37 01/06/17 05:37 Labs: Laboratory Last Values WBC 7.2 K/mm3 (4.5-11.0) 01/06/17 05:37 RBC 3.55 M/mm3 (3.65-5.03) L 01/06/17 05:37 Hgb 11.2 gm/dl (11.8-15.2) L 01/06/17 05:37 Hct 32.5 % (35.5-45.6) L 01/06/17 05:37 MCV 92 fl (84-94) 01/06/17 05:37 MCH 32 pg (28-32) 01/06/17 05:37 MCHC 34 % (32-34) 01/06/17 05:37 RDW 14.3 % (13.2-15.2) 01/06/17 05:37 Plt Count 638 K/mm3 (140-440) H 01/06/17 05:37 Lymph % (Auto) 15.8 % (13.4-35.0) 01/06/17 05:37 [place] % (Auto) 7.7 % (0.0-7.3) H 01/06/17 05:37 Eos % (Auto) 1.4 % (0.0-4.3) 01/06/17 05:37 Baso % (Auto) 0.6 % (0.0-1.8) 01/06/17 05:37 Lymph # 1.1 K/mm3 (1.2-5.4) L 01/06/17 05:37 [place] # 0.6 K/mm3 (0.0-0.8) 01/06/17 05:37 Eos # 0.1 K/mm3 (0.0-0.4) 01/06/17 05:37 Baso # 0.0 K/mm3 (0.0-0.1) 01/06/17 05:37 Seg Neutrophils % 74.5 % (40.0-70.0) H 01/06/17 05:37 Seg Neutrophils # 5.3 K/mm3 (1.8-7.7) 01/06/17 05:37 VBG pH 7.366 (7.320-7.420) 12/31/16 16:15 Sodium 136 mmol/L (137-145) L 01/06/17 05:37 Potassium 4.9 mmol/L (3.6-5.0) 01/06/17 05:37 Chloride 100.3 mmol/L (98-107) 01/06/17 05:37 Carbon Dioxide 27 mmol/L (22-30) 01/06/17 05:37 Anion Gap 14 mmol/L 01/06/17 05:37 BUN 12 mg/dL (9-20) 01/06/17 05:37 Creatinine 0.5 mg/dL (0.8-1.5) L 01/06/17 05:37 Estimated GFR > 60 ml/min 01/06/17 05:37 BUN/Creatinine Ratio 24 % 01/06/17 05:37 Glucose 125 mg/dL (75-100) H 01/06/17 05:37 POC Glucose 144 (70-105) H 01/11/17 03:29 Hemoglobin A1c 5.4 % (4-6) 01/03/17 09:22 Lactic Acid 1.60 mmol/L (0.7-2.0) 12/31/16 16:08 Calcium 8.3 mg/dL (8.4-10.2) L 01/06/17 05:37 Magnesium 2.10 mg/dL (1.7-2.3) 12/31/16 16:16 Total Bilirubin 0.30 mg/dL (0.1-1.2) 12/31/16 16:16 Direct Bilirubin < 0.2 mg/dL (0-0.2) 12/31/16 16:16 AST 41 units/L (5-40) H 12/31/16 16:16 ALT 18 units/L (7-56) 12/31/16 16:16 Alkaline Phosphatase 57 units/L (35-129) 12/31/16 16:16 Total Creatine Kinase 745 units/L (55-170) H 12/31/16 16:16 Total Protein 6.0 g/dL (6.3-8.2) L 12/31/16 16:16 Albumin 2.2 g/dL (3.9-5) L 12/31/16 16:16 Albumin/Globulin Ratio 0.6 % 12/31/16 16:16 Urine Color Yellow (Yellow) 01/01/17 06:21 Urine Turbidity Clear (Clear) 01/01/17 06:21 Urine pH 7.0 (5.0-7.0) 01/01/17 06:21 Ur Specific [place] 1.021 (1.003-1.030) 01/01/17 06:21 Urine Protein <15 mg/dl mg/dL (Negative) 01/01/17 06:21 Urine Glucose (UA) Neg mg/dL (Negative) 01/01/17 06:21 Urine Ketones 20 mg/dL (Negative) 01/01/17 06:21 Urine Blood Sm (Negative) 01/01/17 06:21 Urine Nitrite Neg (Negative) 01/01/17 06:21 Urine Bilirubin Neg (Negative) 01/01/17 06:21 Urine Urobilinogen < 2.0 mg/dL (<2.0) 01/01/17 06:21 Ur Leukocyte Esterase Neg (Negative) 01/01/17 06:21 Urine WBC (Auto) 4.0 /HPF (0.0-6.0) 01/01/17 06:21 Urine RBC (Auto) 15.0 /HPF (0.0-6.0) 01/01/17 06:21 U Epithel Cells (Auto) < 1.0 /HPF (0-13.0) 01/01/17 06:21 Urine Mucus Few /HPF 12/31/16 18:04
--- NOTE | 2017-01-11 12:37 | Consultation ---
History of Present Illness Consult date: 01/11/17 History of present illness: seizure control good more alert agitation is controlled continue same medications as prior Medications and Allergies Allergies Allergy/AdvReac Type Severity Reaction Status Date / Time No Known Allergies Allergy Verified 06/26/14 23:54 Home Medications Medication Instructions Recorded Confirmed Last Taken Type Acetaminophen [Acetaminophen TAB] 650 mg FEEDTUBE Q8H PRN 12/31/16 12/31/16 Unknown History Fludrocortisone [Florinef] 0.05 mg FEEDTUBE QAM 12/31/16 12/31/16 Unknown History Furosemide [Lasix] 20 mg FEEDTUBE ONCE 12/31/16 12/31/16 Unknown History Ipratropium/Albuterol Sulfate 1 neb IH Q4HR 12/31/16 12/31/16 Unknown History [DUONEB *Not for PRN Use*] LORazepam [Ativan INJ] 0.5 ml IM Q6H PRN 12/31/16 12/31/16 Unknown History LORazepam [Ativan] 0.5 mg FEEDTUBE Q6H PRN 12/31/16 12/31/16 Unknown History guaiFENesin ER [Mucinex ER] 600 mg FEEDTUBE Q12H PRN 12/31/16 12/31/16 Unknown History Aspirin [Aspirin SUPPOS] 300 mg [place] QDAY #30 supp.rect 01/07/17 Unknown Rx AtorvaSTATin [Lipitor] 40 mg PO QHS #30 tablet 01/07/17 Unknown Rx Levofloxacin [Levaquin TAB] 500 mg PO QDAY #3 tablet 01/07/17 Unknown Rx levETIRAcetam [Keppra TAB] 1,000 mg FEEDTUBE DAILY #60 tablet 01/07/17 Unknown Rx oxyCODONE /ACETAMINOPHEN [Percocet 1 tab FEEDTUBE Q6H PRN #12 tablet 01/07/17 Unknown Rx 5/325 mg] Active Meds: Active Medications Acetaminophen (Tylenol) 650 mg FEEDTUBE Q8H PRN PRN Reason: Non Cardiac Pain or Temp>100.5 Albuterol (Proventil) 2.5 mg IH Q4HRT PRN PRN Reason: Shortness Of Breath Albuterol/Ipratropium (Duoneb *Not For Prn Use*) 1 ampul IH TIDRT [facility] Last Admin: 01/11/17 10:22 Dose: 1 ampul Lipase/Protease/Amylase (Pancreaze Dr 10,500 Unit) 1 each FEEDTUBE PRN PRN PRN Reason: For Clogged Feeding Tube Aspirin (Aspirin) 300 mg [place] QDAY [facility] Last Admin: 01/10/17 11:08 Dose: 300 mg Atorvastatin Calcium (Lipitor) 40 mg PO QHS [facility] Last Admin: 01/10/17 22:21 Dose: 40 mg Fludrocortisone Acetate (Florinef) 0.05 mg FEEDTUBE QAM [facility] Last Admin: 01/10/17 11:11 Dose: 0.05 mg Levetiracetam (Keppra) 1,000 mg PO BID [facility] Last Admin: 01/10/17 22:21 Dose: 1,000 mg Lorazepam (Ativan) 1 mg IV Q4H PRN PRN Reason: Seizures Last Admin: 01/01/17 13:24 Dose: 1 mg Ondansetron HCl (Zofran) 4 mg IV Q8H PRN PRN Reason: N/V unrelieved by Reglan Simple Syrup (Simple Syrup) 15 ml FEEDTUBE PRN PRN PRN Reason: Hypoglycemia Simple Syrup (Simple Syrup) 30 ml FEEDTUBE PRN PRN PRN Reason: Hypoglycemia Sodium Bicarbonate (Sodium Bicarbonate) 325 mg FEEDTUBE PRN PRN PRN Reason: For Clogged Feeding Tube Physical Examination - Vital Signs Vital Signs: Vital Signs Resp 27 H 12/31/16 15:49 Results - Laboratory Findings CBC and BMP: 01/06/17 05:37 01/06/17 05:37 Abnormal Lab Findings: Abnormal Labs 12/31/16 12/31/16 12/31/16 16:08 16:16 16:16 RBC Hgb 11.7 L Hct Plt Count Lymph % (Auto) 9.1 L [place] % (Auto) Lymph # 0.9 L Seg Neutrophils % 85.9 H Seg Neutrophils # 8.9 H Sodium Potassium 3.5 L Creatinine 0.5 L Glucose POC Glucose Calcium 7.9 L AST 41 H Total Creatine Kinase 745 H Total Protein 6.0 L Albumin 2.2 L 01/02/17 01/02/17 01/02/17 04:47 04:47 18:52 RBC 3.41 L Hgb 10.3 L Hct 31.1 L Plt Count 470 H Lymph % (Auto) 10.8 L [place] % (Auto) Lymph # 0.8 L Seg Neutrophils % 82.3 H Seg Neutrophils # Sodium Potassium Creatinine 0.6 L Glucose POC Glucose 149 H Calcium 7.9 L AST Total Creatine Kinase Total Protein Albumin 01/02/17 01/03/17 01/03/17 23:59 05:16 11:59 RBC Hgb Hct Plt Count Lymph % (Auto) [place] % (Auto) Lymph # Seg Neutrophils % Seg Neutrophils # Sodium 136 L Potassium Creatinine 0.5 L Glucose 209 H POC Glucose 216 H 197 H Calcium 7.6 L AST Total Creatine Kinase Total Protein Albumin 01/03/17 01/04/17 01/04/17 17:47 01:18 06:53 RBC Hgb Hct Plt Count Lymph % (Auto) [place] % (Auto) Lymph # Seg Neutrophils % Seg Neutrophils # Sodium Potassium Creatinine Glucose POC Glucose 124 H 156 H 165 H Calcium AST Total Creatine Kinase Total Protein Albumin 01/04/17 01/04/17 01/05/17 11:51 17:39 00:59 RBC Hgb Hct Plt Count Lymph % (Auto) [place] % (Auto) Lymph # Seg Neutrophils % Seg Neutrophils # Sodium Potassium Creatinine Glucose POC Glucose 205 H 116 H 160 H Calcium AST Total Creatine Kinase Total Protein Albumin 01/05/17 01/05/17 01/05/17 06:32 12:42 15:57 RBC Hgb Hct Plt Count Lymph % (Auto) [place] % (Auto) Lymph # Seg Neutrophils % Seg Neutrophils # Sodium Potassium Creatinine Glucose POC Glucose 130 H 107 H 134 H Calcium AST Total Creatine Kinase Total Protein Albumin 01/05/17 01/06/17 01/06/17 23:32 05:37 05:37 RBC 3.55 L Hgb 11.2 L Hct 32.5 L Plt Count 638 H Lymph % (Auto) [place] % (Auto) 7.7 H Lymph # 1.1 L Seg Neutrophils % 74.5 H Seg Neutrophils # Sodium 136 L Potassium Creatinine 0.5 L Glucose 125 H POC Glucose 153 H Calcium 8.3 L AST Total Creatine Kinase Total Protein Albumin 01/06/17 01/06/17 01/06/17 05:55 17:17 23:57 RBC Hgb Hct Plt Count Lymph % (Auto) [place] % (Auto) Lymph # Seg Neutrophils % Seg Neutrophils # Sodium Potassium Creatinine Glucose POC Glucose 134 H 114 H 145 H Calcium AST Total Creatine Kinase Total Protein Albumin 01/07/17 01/07/17 01/07/17 05:35 16:37 21:17 RBC Hgb Hct Plt Count Lymph % (Auto) [place] % (Auto) Lymph # Seg Neutrophils % Seg Neutrophils # Sodium Potassium Creatinine Glucose POC Glucose 139 H 132 H 132 H Calcium AST Total Creatine Kinase Total Protein Albumin 01/08/17 01/08/17 01/09/17 06:10 17:25 01:01 RBC Hgb Hct Plt Count Lymph % (Auto) [place] % (Auto) Lymph # Seg Neutrophils % Seg Neutrophils # Sodium Potassium Creatinine Glucose POC Glucose 129 H 160 H 138 H Calcium AST Total Creatine Kinase Total Protein Albumin 01/09/17 01/09/17 01/09/17 05:38 12:13 17:00 RBC Hgb Hct Plt Count Lymph % (Auto) [place] % (Auto) Lymph # Seg Neutrophils % Seg Neutrophils # Sodium Potassium Creatinine Glucose POC Glucose 127 H 150 H 134 H Calcium AST Total Creatine Kinase Total Protein Albumin 01/09/17 01/10/17 01/11/17 21:13 06:41 03:29 RBC Hgb Hct Plt Count Lymph % (Auto) [place] % (Auto) Lymph # Seg Neutrophils % Seg Neutrophils # Sodium Potassium Creatinine Glucose POC Glucose 119 H 141 H 144 H Calcium AST Total Creatine Kinase Total Protein Albumin 01/11/17 12:00 RBC Hgb Hct Plt Count Lymph % (Auto) [place] % (Auto) Lymph # Seg Neutrophils % Seg Neutrophils # Sodium Potassium Creatinine Glucose POC Glucose 119 H Calcium AST Total Creatine Kinase Total Protein Albumin
--- NOTE | 2017-01-11 15:47 | Progress Note ---
Assessment and Plan - Patient Problems (1) Recurrent seizures Current Visit: Yes Status: Acute Plan to address problem: Await neurology eval. no new issues at this time. disposition as per you. (2) Altered mental status Current Visit: No Status: Acute Plan to address problem: This is due to the seizure., same as above. no seizure activity recent. Subjective Date of service: 01/11/17 Interval history: patient was seen earlier, resting in bed, no acute distress.labs reviewed. disposition as per you. Patient resting ok in bed at5 the time seem, no new issues.Awaiting placement. Patient resting in bed, no new issues at this time, awaiting placement. Patient seen/examined, resting in bed, vss.records reviewed. Patient seen, resting in bed, no acute distress at the time of visit. Patient seen/examined, non verbal, non toxic looking.Still awaiting placement. Objective - Constitutional Vitals: Vital Signs - 12hr 01/11/17 01/11/17 01/11/17 06:02 08:22 10:00 Temperature 98.6 F 98.2 F Pulse Rate 105 H 103 H Pulse Rate [ Anterior Bilateral Throughout] Respiratory 16 19 Rate Respiratory Rate [Anterior Bilateral Throughout] Blood Pressure 113/59 115/63 O2 Sat by Pulse 99 100 99 Oximetry 01/11/17 01/11/17 10:15 10:25 Temperature Pulse Rate Pulse Rate [ 103 H 103 H Anterior Bilateral Throughout] Respiratory Rate Respiratory 18 18 Rate [Anterior Bilateral Throughout] Blood Pressure O2 Sat by Pulse Oximetry - EENT Eyes: PERRL, EOM intact ENT: hearing intact, clear oral mucosa Ears: bilateral: normal - Neck Neck: supple, normal ROM - Respiratory Respiratory effort: normal Respiratory: bilateral: CTA - Cardiovascular Rhythm: regular Heart Sounds: Present: S1 & S2. Absent: gallop, rub Extremities: pulses intact, No edema, normal color, Full ROM - Gastrointestinal General gastrointestinal: Present: soft, non-tender, non-distended, normal bowel sounds Rectal Exam: deferred - Genitourinary Male genitourinary: deferred - Integumentary Integumentary: clear, warm, dry - Musculoskeletal Musculoskeletal: 1, strength equal bilaterally - Neurologic Neurologic: moves all extremities - Psychiatric Psychiatric: appropriate mood/affect - Labs CBC & Chem 7: 01/06/17 05:37 01/06/17 05:37 Labs: Abnormal lab results 01/11/17 01/11/17 Range/Units 03:29 12:00 POC Glucose 144 H 119 H (70-105)
[2017-01-11] MEDS: KEPPRA PO SCH ×2 (17:31→23:48)
[2017-01-11] MEDS: FLORINEF FEEDTUBE SCH (17:33)
[2017-01-11] MEDS: ASPIRIN PR SCH (17:34)
[2017-01-12] MEDS: DUONEB *Not for PRN Use IH SCH ×3 (07:56→20:09)
[2017-01-12] MEDS: KEPPRA PO SCH ×2 (10:24→23:10)
[2017-01-12] MEDS: ASPIRIN PR SCH (10:24)
--- NOTE | 2017-01-12 13:16 | Progress Note ---
Assessment and Plan Assessment and plan: 75-year-old man with a history of prostate cancer, seizure was sent to the emergency room from the skilled nursing because she had 3 seizures at the skilled nursing, one in route to the hospital and 2 in the emergency room. Status epilepticus Continue seizure medications, no further seizures in hospital. -continue current AEDs History of CVA Case discussed with neurologist. no evidence of recent or acute cva Continues secondary stroke prophylaxis medications Functional quadriplegia Continue supportive care Sacral decubitus ulcer, present on admission Continuing care DVT prophylaxis - Heparin severe malnutrition continue tube feeds by PEG Disposition - patient is stable for discharge,pending for placement to SNF. History Interval history: no new seizures, no vomiting, no fevers, no sob Hospitalist Physical - Physical exam Narrative exam: General.: Appears well, no distress, nontoxic HEENT: Moist mucous membranes, extraocular muscles intact, no lymphadenopathy Neck: supple Cardiac: S1-S2 heard Lungs: clear to auscultation bilaterally Abdomen: soft , nontender, nondistended, bowel sounds positive Extremities: no edema clubbing or cyanosis Skin: no rash or lesions Neurologic: Opens eyes, tracks and turn stimulate walking around. Does not move any extremities, does not be any commands. Nonverbal - Constitutional Vitals: Temp Pulse Resp BP Pulse Ox 98.6 F 106 H 20 95/55 99 01/12/17 12:02 01/12/17 12:02 01/12/17 12:02 01/12/17 12:02 01/12/17 12:02 General appearance: Present: no acute distress, well-nourished Results - Labs CBC & Chem 7: 01/06/17 05:37 01/06/17 05:37 Labs: Laboratory Last Values WBC 7.2 K/mm3 (4.5-11.0) 01/06/17 05:37 RBC 3.55 M/mm3 (3.65-5.03) L 01/06/17 05:37 Hgb 11.2 gm/dl (11.8-15.2) L 01/06/17 05:37 Hct 32.5 % (35.5-45.6) L 01/06/17 05:37 MCV 92 fl (84-94) 01/06/17 05:37 MCH 32 pg (28-32) 01/06/17 05:37 MCHC 34 % (32-34) 01/06/17 05:37 RDW 14.3 % (13.2-15.2) 01/06/17 05:37 Plt Count 638 K/mm3 (140-440) H 01/06/17 05:37 Lymph % (Auto) 15.8 % (13.4-35.0) 01/06/17 05:37 [place] % (Auto) 7.7 % (0.0-7.3) H 01/06/17 05:37 Eos % (Auto) 1.4 % (0.0-4.3) 01/06/17 05:37 Baso % (Auto) 0.6 % (0.0-1.8) 01/06/17 05:37 Lymph # 1.1 K/mm3 (1.2-5.4) L 01/06/17 05:37 [place] # 0.6 K/mm3 (0.0-0.8) 01/06/17 05:37 Eos # 0.1 K/mm3 (0.0-0.4) 01/06/17 05:37 Baso # 0.0 K/mm3 (0.0-0.1) 01/06/17 05:37 Seg Neutrophils % 74.5 % (40.0-70.0) H 01/06/17 05:37 Seg Neutrophils # 5.3 K/mm3 (1.8-7.7) 01/06/17 05:37 VBG pH 7.366 (7.320-7.420) 12/31/16 16:15 Sodium 136 mmol/L (137-145) L 01/06/17 05:37 Potassium 4.9 mmol/L (3.6-5.0) 01/06/17 05:37 Chloride 100.3 mmol/L (98-107) 01/06/17 05:37 Carbon Dioxide 27 mmol/L (22-30) 01/06/17 05:37 Anion Gap 14 mmol/L 01/06/17 05:37 BUN 12 mg/dL (9-20) 01/06/17 05:37 Creatinine 0.5 mg/dL (0.8-1.5) L 01/06/17 05:37 Estimated GFR > 60 ml/min 01/06/17 05:37 BUN/Creatinine Ratio 24 % 01/06/17 05:37 Glucose 125 mg/dL (75-100) H 01/06/17 05:37 POC Glucose 124 (70-105) H 01/12/17 11:33 Hemoglobin A1c 5.4 % (4-6) 01/03/17 09:22 Lactic Acid 1.60 mmol/L (0.7-2.0) 12/31/16 16:08 Calcium 8.3 mg/dL (8.4-10.2) L 01/06/17 05:37 Magnesium 2.10 mg/dL (1.7-2.3) 12/31/16 16:16 Total Bilirubin 0.30 mg/dL (0.1-1.2) 12/31/16 16:16 Direct Bilirubin < 0.2 mg/dL (0-0.2) 12/31/16 16:16 AST 41 units/L (5-40) H 12/31/16 16:16 ALT 18 units/L (7-56) 12/31/16 16:16 Alkaline Phosphatase 57 units/L (35-129) 12/31/16 16:16 Total Creatine Kinase 745 units/L (55-170) H 12/31/16 16:16 Total Protein 6.0 g/dL (6.3-8.2) L 12/31/16 16:16 Albumin 2.2 g/dL (3.9-5) L 12/31/16 16:16 Albumin/Globulin Ratio 0.6 % 12/31/16 16:16 Urine Color Yellow (Yellow) 01/01/17 06:21 Urine Turbidity Clear (Clear) 01/01/17 06:21 Urine pH 7.0 (5.0-7.0) 01/01/17 06:21 Ur Specific [place] 1.021 (1.003-1.030) 01/01/17 06:21 Urine Protein <15 mg/dl mg/dL (Negative) 01/01/17 06:21 Urine Glucose (UA) Neg mg/dL (Negative) 01/01/17 06:21 Urine Ketones 20 mg/dL (Negative) 01/01/17 06:21 Urine Blood Sm (Negative) 01/01/17 06:21 Urine Nitrite Neg (Negative) 01/01/17 06:21 Urine Bilirubin Neg (Negative) 01/01/17 06:21 Urine Urobilinogen < 2.0 mg/dL (<2.0) 01/01/17 06:21 Ur Leukocyte Esterase Neg (Negative) 01/01/17 06:21 Urine WBC (Auto) 4.0 /HPF (0.0-6.0) 01/01/17 06:21 Urine RBC (Auto) 15.0 /HPF (0.0-6.0) 01/01/17 06:21 U Epithel Cells (Auto) < 1.0 /HPF (0-13.0) 01/01/17 06:21 Urine Mucus Few /HPF 12/31/16 18:04
[2017-01-12] MEDS: FLORINEF FEEDTUBE SCH (15:11)
--- NOTE | 2017-01-12 15:36 | Progress Note ---
Assessment and Plan - Patient Problems (1) Recurrent seizures Current Visit: Yes Status: Acute Plan to address problem: Await neurology eval. no new issues at this time. disposition as per you. (2) Altered mental status Current Visit: No Status: Acute Plan to address problem: This is due to the seizure., same as above. no seizure activity recent. Subjective Date of service: 01/12/17 Interval history: patient was seen earlier, resting in bed, no acute distress.labs reviewed. disposition as per you. Patient resting ok in bed at5 the time seem, no new issues.Awaiting placement. Patient resting in bed, no new issues at this time, awaiting placement. Patient seen/examined, resting in bed, vss.records reviewed. Patient seen, resting in bed, no acute distress at the time of visit. Patient seen/examined, non verbal, non toxic looking.Still awaiting placement. Patient seen/examined, resting in bed, not readily following commands, but non toxic looking.will check new labs.Still awaiting placement. Objective - Constitutional Vitals: Vital Signs - 12hr 01/12/17 01/12/17 01/12/17 07:45 07:56 08:06 Temperature 98.0 F Pulse Rate 101 H Pulse Rate [ 100 H 103 H Anterior Bilateral Throughout] Respiratory 20 Rate Respiratory 18 18 Rate [Anterior Bilateral Throughout] Blood Pressure 104/56 O2 Sat by Pulse 98 98 Oximetry 01/12/17 12:02 Temperature 98.6 F Pulse Rate 106 H Pulse Rate [ Anterior Bilateral Throughout] Respiratory 20 Rate Respiratory Rate [Anterior Bilateral Throughout] Blood Pressure 95/55 O2 Sat by Pulse 99 Oximetry General appearance: Present: no acute distress, well-nourished - EENT Eyes: PERRL, EOM intact ENT: hearing intact, clear oral mucosa Ears: bilateral: normal - Neck Neck: supple, normal ROM - Respiratory Respiratory effort: normal Respiratory: bilateral: CTA - Cardiovascular Rhythm: regular Heart Sounds: Present: S1 & S2. Absent: gallop, rub Extremities: pulses intact, No edema, normal color, Full ROM - Gastrointestinal General gastrointestinal: Present: soft, non-tender, non-distended, normal bowel sounds Rectal Exam: deferred - Genitourinary Male genitourinary: deferred - Integumentary Integumentary: clear, warm, dry - Musculoskeletal Musculoskeletal: 1, strength equal bilaterally - Neurologic Neurologic: moves all extremities - Psychiatric Psychiatric: appropriate mood/affect - Labs CBC & Chem 7: 01/06/17 05:37 01/06/17 05:37 Labs: Abnormal lab results 01/11/17 01/12/17 01/12/17 Range/Units 23:47 05:40 11:33 POC Glucose 115 H 128 H 124 H (70-105)
[2017-01-13 06:06] LABS: Basophils % (Auto) 0.8 % (0.0-1.8); Eosinophils % (Auto) 2.1 % (0.0-4.3); Hematocrit 34.7 % (35.5-45.6); Hemoglobin 11.8 gm/dl (11.8-15.2); Mean Corpuscular HGB Conc 34 % (32-34); Mean Corpuscular Hemoglobin 31 pg (28-32); Mean Corpuscular Volume 91 fl (84-94); Platelet Count 584 K/mm3 (140-440); Red Blood Count 3.84 M/mm3 (3.65-5.03); Red Cell Distribution Width 13.9 % (13.2-15.2); White Blood Count 6.8 K/mm3 (4.5-11.0)
[2017-01-13 06:30] LABS: Alanine Aminotransferase 139 units/L (7-56); Albumin 2.7 g/dL (3.9-5); Albumin/Globulin Ratio 0.6 %; Alkaline Phosphatase 104 units/L (35-129); Anion Gap 17 mmol/L; BUN/Creatinine Ratio 48; Blood Urea Nitrogen 29 mg/dL (9-20); Calcium 8.5 mg/dL (8.4-10.2); Carbon Dioxide 27 mmol/L (22-30); Chloride 92.6 mmol/L (98-107); Glucose 138 mg/dL (75-100); Potassium 5.8 mmol/L (3.6-5.0); Sodium 131 mmol/L (137-145); Total Protein 7.4 g/dL (6.3-8.2)
[2017-01-13] MEDS: DUONEB *Not for PRN Use IH SCH ×3 (08:02→21:13)
[2017-01-13] MEDS: FLORINEF FEEDTUBE SCH (10:22)
[2017-01-13] MEDS: KEPPRA PO SCH ×2 (10:22→21:38)
[2017-01-13] MEDS: ASPIRIN PR SCH (10:22)
--- NOTE | 2017-01-13 12:39 | Progress Note ---
Assessment and Plan Assessment and plan: 75-year-old man with a history of prostate cancer, seizure was sent to the emergency room from the long-term because she had 3 seizures at the long-term, one in route to the hospital and 2 in the emergency room. Status epilepticus Continue seizure medications, no further seizures in hospital. -continue current AEDs History of CVA Case discussed with neurologist. no evidence of recent or acute cva Continues secondary stroke prophylaxis medications Functional quadriplegia Continue supportive care Sacral decubitus ulcer, present on admission Continuing care severe malnutrition continue tube feeds by PEG Disposition - patient is stable for discharge,pending for placement to SNF. History Interval history: no new seizures, no vomiting, no fevers, no sob, no agitation Hospitalist Physical - Physical exam Narrative exam: General.: Appears well, no distress, nontoxic HEENT: Moist mucous membranes, extraocular muscles intact, no lymphadenopathy Neck: supple Cardiac: S1-S2 heard Lungs: clear to auscultation bilaterally Abdomen: soft , nontender, nondistended, bowel sounds positive Extremities: no edema clubbing or cyanosis Skin: no rash or lesions Neurologic: Opens eyes, tracks and turn stimulate walking around. Does not move any extremities, does not be any commands. Nonverbal - Constitutional Vitals: Temp Pulse Resp BP Pulse Ox 98.1 F 103 H 20 101/56 99 01/13/17 07:42 01/13/17 08:23 01/13/17 08:23 01/13/17 07:42 01/13/17 08:05 General appearance: Present: no acute distress, cachectic Results - Labs CBC & Chem 7: 01/13/17 05:13 01/13/17 05:13 Labs: Laboratory Last Values WBC 6.8 K/mm3 (4.5-11.0) 01/13/17 05:13 RBC 3.84 M/mm3 (3.65-5.03) 01/13/17 05:13 Hgb 11.8 gm/dl (11.8-15.2) 01/13/17 05:13 Hct 34.7 % (35.5-45.6) L 01/13/17 05:13 MCV 91 fl (84-94) 01/13/17 05:13 MCH 31 pg (28-32) 01/13/17 05:13 MCHC 34 % (32-34) 01/13/17 05:13 RDW 13.9 % (13.2-15.2) 01/13/17 05:13 Plt Count 584 K/mm3 (140-440) H 01/13/17 05:13 Lymph % (Auto) 18.5 % (13.4-35.0) 01/13/17 05:13 [place] % (Auto) 9.5 % (0.0-7.3) H 01/13/17 05:13 Eos % (Auto) 2.1 % (0.0-4.3) 01/13/17 05:13 Baso % (Auto) 0.8 % (0.0-1.8) 01/13/17 05:13 Lymph # 1.3 K/mm3 (1.2-5.4) 01/13/17 05:13 [place] # 0.6 K/mm3 (0.0-0.8) 01/13/17 05:13 Eos # 0.1 K/mm3 (0.0-0.4) 01/13/17 05:13 Baso # 0.1 K/mm3 (0.0-0.1) 01/13/17 05:13 Seg Neutrophils % 69.1 % (40.0-70.0) 01/13/17 05:13 Seg Neutrophils # 4.7 K/mm3 (1.8-7.7) 01/13/17 05:13 VBG pH 7.366 (7.320-7.420) 12/31/16 16:15 Sodium 131 mmol/L (137-145) L 01/13/17 05:13 Potassium 5.8 mmol/L (3.6-5.0) H 01/13/17 05:13 Chloride 92.6 mmol/L (98-107) L 01/13/17 05:13 Carbon Dioxide 27 mmol/L (22-30) 01/13/17 05:13 Anion Gap 17 mmol/L 01/13/17 05:13 BUN 29 mg/dL (9-20) H 01/13/17 05:13 Creatinine 0.6 mg/dL (0.8-1.5) L 01/13/17 05:13 Estimated GFR > 60 ml/min 01/13/17 05:13 BUN/Creatinine Ratio 48 % 01/13/17 05:13 Glucose 138 mg/dL (75-100) H 01/13/17 05:13 POC Glucose 146 (70-105) H 01/13/17 06:18 Hemoglobin A1c 5.4 % (4-6) 01/03/17 09:22 Lactic Acid 1.60 mmol/L (0.7-2.0) 12/31/16 16:08 Calcium 8.5 mg/dL (8.4-10.2) 01/13/17 05:13 Magnesium 2.10 mg/dL (1.7-2.3) 12/31/16 16:16 Total Bilirubin 0.20 mg/dL (0.1-1.2) 01/13/17 05:13 Direct Bilirubin < 0.2 mg/dL (0-0.2) 12/31/16 16:16 AST 139 units/L (5-40) H 01/13/17 05:13 ALT 139 units/L (7-56) H 01/13/17 05:13 Alkaline Phosphatase 104 units/L (35-129) 01/13/17 05:13 Total Creatine Kinase 745 units/L (55-170) H 12/31/16 16:16 Total Protein 7.4 g/dL (6.3-8.2) 01/13/17 05:13 Albumin 2.7 g/dL (3.9-5) L 01/13/17 05:13 Albumin/Globulin Ratio 0.6 % 01/13/17 05:13 Urine Color Yellow (Yellow) 01/01/17 06:21 Urine Turbidity Clear (Clear) 01/01/17 06:21 Urine pH 7.0 (5.0-7.0) 01/01/17 06:21 Ur Specific [place] 1.021 (1.003-1.030) 01/01/17 06:21 Urine Protein <15 mg/dl mg/dL (Negative) 01/01/17 06:21 Urine Glucose (UA) Neg mg/dL (Negative) 01/01/17 06:21 Urine Ketones 20 mg/dL (Negative) 01/01/17 06:21 Urine Blood Sm (Negative) 01/01/17 06:21 Urine Nitrite Neg (Negative) 01/01/17 06:21 Urine Bilirubin Neg (Negative) 01/01/17 06:21 Urine Urobilinogen < 2.0 mg/dL (<2.0) 01/01/17 06:21 Ur Leukocyte Esterase Neg (Negative) 01/01/17 06:21 Urine WBC (Auto) 4.0 /HPF (0.0-6.0) 01/01/17 06:21 Urine RBC (Auto) 15.0 /HPF (0.0-6.0) 01/01/17 06:21 U Epithel Cells (Auto) < 1.0 /HPF (0-13.0) 01/01/17 06:21 Urine Mucus Few /HPF 12/31/16 18:04
[2017-01-13] MEDS ORDERED: KIONEX PO ONE (14:00)
--- NOTE | 2017-01-13 14:03 | Discharge Summary ---
Providers - Providers Date of Admission: 12/31/16 20:14 Attending physician: CONRAD PRO MD 12/31/16 17:36 Consult to Wound/ET Nurse [CONS] Stat Reason For Exam: wound eval 01/01/17 01:03 Consult to Physician [CONS] Routine Consulting Provider: JANENE BOSTON Reason For Exam: sz Notified:: accredited legal secretary pl call 01/01/17 10:39 Consult to Physician [CONS] Routine Consulting Provider: JANENE BOSTON Reason For Exam: seizure, recurrent Place consult to:: Dr. Boston Notified:: Gisel GAVIN Phone number called:: Was contact made?: Yes If yes, spoke with:: Judy-Office Time called:: 10:46 01/01/17 17:11 Consult to Dietitian/Nutrition [CONS] Routine Physician Instructions: patient has j tube Reason For Exam: Reason for Consult: Write/Manage Tube Feeding 01/03/17 13:46 Physical Therapy Evaluation and Treat [CONS] Routine Comment: needs new precert back to SNF/skill level Reason For Exam: eval and treat 01/03/17 13:47 Occupational Therapy Evaluate and Treat [CONS] Routine Comment: needs new precert back to SNF/skill level Reason For Exam: eval & treat Primary care physician: CLEMENTINA FORD Hospitalization Condition: Stable Hospital course: 75-year-old man with a history of prostate cancer, seizure was sent to the emergency room from the long term because she had 3 seizures at the long term, one in route to the hospital and 2 in the emergency room. His antiepileptic medications were optimized. He did not have any further seizures in the hospital. The case was discussed with neurologist who believed that he did not have any new or recent CVA. He received supportive care, and wound care for sacral decubitus. Discharge diagnoses Status epilepticus History of CVA Functional quadriplegia Sacral decubitus ulcer, present on admission severe malnutrition Disposition: - TO HOME OR SELFCARE Time spent for discharge: 33 minutes Core Measure Documentation - Palliative Care Palliative Care/ Comfort Measures: Not Applicable - Core Measures Any of the following diagnoses?: none Exam - Physical Exam Narrative exam: General.: Appears well, no distress, nontoxic HEENT: Moist mucous membranes, extraocular muscles intact, no lymphadenopathy Neck: supple Cardiac: S1-S2 heard Lungs: clear to auscultation bilaterally Abdomen: soft , nontender, nondistended, bowel sounds positive Extremities: no edema clubbing or cyanosis Skin: no rash or lesions Neurologic: Opens eyes, tracks and turn stimulate walking around. Does not move any extremities, does not be any commands. Nonverbal - Constitutional Vitals: Temp Pulse Resp BP Pulse Ox 98.1 F 103 H 20 101/56 99 01/13/17 07:42 01/13/17 08:23 01/13/17 08:23 01/13/17 07:42 01/13/17 08:05 Plan Follow up with: CLEMENTINA FORD DO [Primary Care Provider] - 7 Days Prescriptions: AtorvaSTATin [Lipitor] 40 mg PO QHS #30 tablet Aspirin [Aspirin SUPPOS] 300 mg CA QDAY #30 supp.rect levETIRAcetam [Keppra TAB] 1,000 mg FEEDTUBE DAILY #60 tablet Levofloxacin [Levaquin TAB] 500 mg PO QDAY #3 tablet oxyCODONE /ACETAMINOPHEN [Percocet 5/325 mg] 1 tab FEEDTUBE Q6H PRN #12 tablet PRN Reason: Pain, Moderate (4-6)
--- NOTE | 2017-01-13 21:46 | Progress Note ---
Assessment and Plan - Patient Problems (1) Recurrent seizures Current Visit: Yes Status: Acute Plan to address problem: Await neurology eval. no new issues at this time. disposition as per you. (2) Altered mental status Current Visit: No Status: Acute Plan to address problem: This is due to the seizure., same as above. no seizure activity recent. (3) Hyperkalemia Current Visit: Yes Status: Acute Plan to address problem: Needs to be corrected if not already done so. Subjective Date of service: 01/13/17 Interval history: patient was seen earlier, resting in bed, no acute distress.labs reviewed. disposition as per you. Patient resting ok in bed at5 the time seem, no new issues.Awaiting placement. Patient resting in bed, no new issues at this time, awaiting placement. Patient seen/examined, resting in bed, vss.records reviewed. Patient seen, resting in bed, no acute distress at the time of visit. Patient seen/examined, non verbal, non toxic looking.Still awaiting placement. Patient seen/examined, resting in bed, not readily following commands, but non toxic looking.will check new labs.Still awaiting placement. Patient seen/examined, body appears cooler than usual. Labs reviewed, and stable.D/C in process. Objective - Constitutional Vitals: Vital Signs - 12hr 01/13/17 01/13/17 01/13/17 14:42 15:01 16:49 Temperature 98.3 F Pulse Rate 117 H Pulse Rate [ 107 H 107 H Anterior Bilateral Throughout] Respiratory 18 Rate Respiratory 16 18 Rate [Anterior Bilateral Throughout] Blood Pressure 108/65 O2 Sat by Pulse 98 Oximetry 01/13/17 01/13/17 01/13/17 21:10 21:14 21:15 Temperature Pulse Rate Pulse Rate [ 118 H 114 H Anterior Bilateral Throughout] Respiratory Rate Respiratory 20 20 Rate [Anterior Bilateral Throughout] Blood Pressure O2 Sat by Pulse 98 Oximetry General appearance: Present: no acute distress - EENT Eyes: PERRL, EOM intact ENT: hearing intact, clear oral mucosa Ears: bilateral: normal - Neck Neck: supple, normal ROM - Respiratory Respiratory effort: normal Respiratory: bilateral: CTA - Cardiovascular Rhythm: regular Heart Sounds: Present: S1 & S2. Absent: gallop, rub Extremities: pulses intact, No edema, normal color, Full ROM - Gastrointestinal General gastrointestinal: Present: soft, non-tender, non-distended, normal bowel sounds Rectal Exam: deferred - Genitourinary Male genitourinary: deferred - Integumentary Integumentary: clear, warm, dry - Neurologic Neurologic: moves all extremities - Psychiatric Psychiatric: appropriate mood/affect - Labs CBC & Chem 7: 01/13/17 05:13 01/13/17 05:13 Labs: Abnormal lab results 01/13/17 01/13/17 01/13/17 Range/Units 00:00 05:13 05:13 Hct 34.7 L (35.5-45.6) % Plt Count 584 H (140-440) K/mm3 [place] % (Auto) 9.5 H (0.0-7.3) % Sodium 131 L (137-145) mmol/L Potassium 5.8 H (3.6-5.0) mmol/L Chloride 92.6 L (98-107) mmol/L BUN 29 H (9-20) mg/dL Creatinine 0.6 L (0.8-1.5) mg/dL Glucose 138 H (75-100) mg/dL POC Glucose 141 H (70-105) AST 139 H (5-40) units/L ALT 139 H (7-56) units/L Albumin 2.7 L (3.9-5) g/dL 01/13/17 01/13/17 01/13/17 Range/Units 06:18 13:00 16:24 Hct (35.5-45.6) % Plt Count (140-440) K/mm3 [place] % (Auto) (0.0-7.3) % Sodium (137-145) mmol/L Potassium (3.6-5.0) mmol/L Chloride (98-107) mmol/L BUN (9-20) mg/dL Creatinine (0.8-1.5) mg/dL Glucose (75-100) mg/dL POC Glucose 146 H 126 H 124 H (70-105) AST (5-40) units/L ALT (7-56) units/L Albumin (3.9-5) g/dL
[2017-01-14] MEDS: DUONEB *Not for PRN Use IH SCH ×2 (08:25→16:55)
[2017-01-14 08:54] VITALS: BP 111/68
[2017-01-14] MEDS: FLORINEF FEEDTUBE SCH (10:23)
[2017-01-14] MEDS: ASPIRIN PR SCH (10:23)
[2017-01-14] MEDS: KEPPRA PO SCH (10:31)
--- NOTE | 2017-01-14 18:47 | Progress Note ---
Assessment and Plan - Patient Problems (1) Recurrent seizures Current Visit: Yes Status: Acute Plan to address problem: Await neurology eval. no new issues at this time. disposition as per you. (2) Altered mental status Current Visit: No Status: Acute Plan to address problem: This is due to the seizure., same as above. no seizure activity recent. (3) Hyperkalemia Current Visit: Yes Status: Acute Plan to address problem: Needs to be corrected if not already done so. Subjective Date of service: 01/14/17 Interval history: patient was seen earlier, resting in bed, no acute distress.labs reviewed. disposition as per you. Patient resting ok in bed at5 the time seem, no new issues.Awaiting placement. Patient resting in bed, no new issues at this time, awaiting placement. Patient seen/examined, resting in bed, vss.records reviewed. Patient seen, resting in bed, no acute distress at the time of visit. Patient seen/examined, non verbal, non toxic looking.Still awaiting placement. Patient seen/examined, resting in bed, not readily following commands, but non toxic looking.will check new labs.Still awaiting placement. Patient seen/examined, body appears cooler than usual. Labs reviewed, and stable.D/C in process. Patient seen/examined, resting in bed, no new information. Objective - Constitutional Vitals: Vital Signs - 12hr 01/14/17 08:06 Temperature 98.2 F Pulse Rate 104 H Respiratory 18 Rate Blood Pressure 111/68 O2 Sat by Pulse 92 Oximetry General appearance: Present: no acute distress - EENT Eyes: PERRL, EOM intact ENT: hearing intact, clear oral mucosa Ears: bilateral: normal - Neck Neck: supple, normal ROM - Respiratory Respiratory effort: normal Respiratory: bilateral: CTA - Cardiovascular Rhythm: regular Heart Sounds: Present: S1 & S2. Absent: gallop, rub Extremities: pulses intact, No edema, normal color, Full ROM - Gastrointestinal General gastrointestinal: Present: soft, non-tender, non-distended, normal bowel sounds Rectal Exam: deferred - Genitourinary Male genitourinary: deferred - Integumentary Integumentary: clear, warm, dry - Musculoskeletal Musculoskeletal: 1, strength equal bilaterally - Neurologic Neurologic: moves all extremities - Psychiatric Psychiatric: appropriate mood/affect - Labs CBC & Chem 7: 01/13/17 05:13 01/14/17 15:44
--- NOTE | 2017-02-21 08:41 | Query- General ---
Howard Rizzo Suly Date:____02/21/17 [employer]/CDS:___Rebeca Dumont / Ricardo Phone#:___[phone] Exercise your independent professional judgment when responding to this query. Questions asked do not imply a particular answer is desired or expected. We greatly appreciate your clarification on this issue. Clinical Documentation States: "75-year-old man with a history of prostate cancer, seizure was sent [facility] emergency [facility] because she had 3 seizures at the [facility], one in route to the hospital and 2 in the emergency room. 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 Functional Quadriplegia, Acute Seizures, Dementia, Altered mental status Home medications: Furosemide PHYSICIAN RESPONSE: Based on the low blood pressure reading(s), please clarify if the diagnosis/ scenario above is: [ ] Due to an acute non-infectious condition (Please specify: ) [ ] Due to a chronic non-infectious condition (Please specify: ) [ ] Due to medication [ x] Normal for the patient [ ] Erroneous reading(s) [ ] Due to infection [ ] Clinically undetermined [ ] Other: [ ] Comment/Explanation: Please also document response in your Progress Notes and/or Discharge Summary and indicate if the condition was present on admission. RAMIRO
== END 2017-01-14 19:38 | DRG 871 ==
LOC: ED 15:21 → 4A 20:14 → 3A 01-06 09:27
PROVIDERS: ADMIT Internal Medicine; ATTEND Internal Medicine
DX: A41.9 Sepsis, unspecified organism (principal); J69.0 Pneumonitis due to inhalation of food and vomit; R53.2 Functional quadriplegia; E43 Unspecified severe protein-calorie malnutrition; L89.154 Pressure ulcer of sacral region, stage 4; Z68.1 Body mass index [BMI] 19.9 or less, adult; E27.1 Primary adrenocortical insufficiency; G40.911 Epilepsy, unspecified, intractable, with status epilepticus; F03.90 Unspecified dementia, unspecified severity, without behavioral disturbance, psychotic disturbance, mood disturbance, and anxiety; E87.6 Hypokalemia; E87.5 Hyperkalemia; Z82.49 Family history of ischemic heart disease and other diseases of the circulatory system; Z85.46 Personal history of malignant neoplasm of prostate
CPT/HCPCS: 36415; 70450; 70551; 71010; 80048; 80053; 80074; 81001; 82140; 82550; 82805; 82962; 83036; 83735; 84132; 85025; 87040; 93005; 93010; 94640; 94760; 96365; 96367; 96375; 96376; 99285; A9270-GY; G8978-GP; G8979-GP; G8987-GO; G8988-GO; G8989-GO; J1953; J1956; J2060; J2543; Q2009